=== PATIENT | female | born 1960 | race Caucasian/White ===

== ENCOUNTER 2018-08-27 11:46 | Inpatient (IN) | payer MEDICARE ==
[~2018-08-27] VITALS: Ht 170.2 cm; Wt 112.6 kg
[~2018-08-27 11:46] MED LIST: AMPICILLIN PO; ASPIRIN CHEW81 MG PO; ATROVENT HFA12.9 GM INH; BUDESONIDE0.5 MG/2 M NEB; CELEXA40 MG PO; CLINDAMYCIN HC150 MG PO; FENOFIBRATE PO; FUROSEMIDE40 MG PO; GABAPENTIN300 MG PO; HUMALOG100 UNIT/1 SC; LANTUS100 UNITS/ SC; LEVAQUIN500 MG PO; LEVOTHYROX200 MCG/VI PO; NAPROXEN500 MG PO; PANTOPRAZOLE SO40 MG PO; POTASSIUM CHLO20 ME1 PO; PRAVASTATIN SOD80 MG PO; PROAIR HFA INH8.5 GM IH; TOPIRAMATE25 MG PO
--- OUTSIDE RECORDS SUMMARY | 2018-08-27 11:49 | XMS REPORT | Clinical Summary ---
Author Author [facility] Organization [facility] Address Unknown Phone Unavailable Care Team Providers Care Care Worker Name Role Phone Ramon Koch MD PCP Allergies Comments Active Allergy Reactions Severity Noted Date Cefotaxime Anaphylaxis High 06/21/2018 "heart beat" Codeine Other (See 08/04/2016 Comments) "clarforin-antibiotic" Other Anaphylaxis High 06/20/2018 Sulfa (Sulfonamide Rash Low 08/04/2016 Antibiotics) Medications End Date Status Medication Sig Dispensed Refills Start Date Active LANTUS SOLOSTAR 100 40 Units 2 0 unit/mL injection (pen) (two) times a 6 day. Active HUMALOG KWIKPEN 100 20 Units 2 3 unit/mL insulin pen (two) times a 6 day. Active levothyroxine (SYNTHROID, Take 200 mcg 0 LEVOXYL) 200 mcg tablet by mouth every morning. Active pravastatin (PRAVACHOL) Take 80 mg by 0 80 MG tablet mouth nightly. Active fexofenadine (PERNELL) Take 180 mg 0 180 MG tablet by mouth daily. Active budesonide (PULMICORT) Take 0.25 mg 0 0.25 mg/2 mL nebulizer by solution nebulization Every 4 hours while awake as needed (RT). Active albuterol (PROVENTIL) 2.5 Take 2.5 mg 0 mg /3 mL (0.083 %) by nebulizer solution nebulization every 6 (six) hours as needed for wheezing. Active gabapentin (NEURONTIN) Take 2 360 capsule 3 300 mg capsule capsules (600 7 mg total) by mouth 2 (two) times a day. Active DULoxetine (CYMBALTA) 30 Take 1 pill 60 capsule 11 MG capsule Each day for 7 a month and then 2 pills Active pantoprazole (PROTONIX) Take 40 mg by 0 40 MG EC tablet mouth daily. Active fenofibrate micronized Take 200 mg 0 (LOFIBRA) 200 MG capsule by mouth daily before breakfast. Active citalopram (CeleXA) 40 MG Take 40 mg by 0 tablet mouth daily. 06/22/2018 Discontinued aspirin (ECOTRIN) 81 MG Take 81 mg by 0 enteric coated tablet mouth daily. 06/20/2018 Discontinued cyclobenzaprine Take 10 mg by 0 (FLEXERIL) 10 mg tablet mouth 3 (three) times a day as needed for muscle spasms. 06/20/2018 Discontinued furosemide (LASIX) 40 mg Take 40 mg by 0 tablet mouth 2 (two) times a day. 06/20/2018 Discontinued potassium chloride in Infuse into a 0 0.9%NaCl 20 mEq/250 mL venous (80 mEq/L) parenteral catheter. solution 06/20/2018 Discontinued etodolac (LODINE) 500 MG Take 500 mg 0 tablet by mouth 2 (two) times a day. 06/20/2018 Discontinued topiramate (TOPAMAX) 50 Take 2 pills 120 tablet 11 MG tablet Twice daily 7 06/20/2018 Discontinued levoFLOXacin (LEVAQUIN) TK 1 T PO QD 0 500 MG tablet 8 06/20/2018 Discontinued jdklcurg-qrvlmpsbv-OV INSTILL 4 0 (CORTISPORIN) DROPS IN BOTH 8 3.5-10,000-1 EARS TID FOR mg/mL-unit/mL-% otic 10 DAYS suspension 06/20/2018 Discontinued naproxen (NAPROSYN) 500 Take 500 mg 0 MG tablet by mouth 2 (two) times a day with meals. 07/05/2018 Discontinued clindamycin (CLEOCIN) 300 Take 1 60 capsule 0 MG capsule capsule (300 8 mg total) by mouth 3 (three) times a day for 20 days. 07/05/2018 Discontinued qpktgjsjgj-dgmggrf-jxfxiv Take 1 50 capsule 0 ne (FIORINAL) 50-325-40 capsule by 8 mg per capsule mouth every 4 (four) hours as needed for headaches for up to 15 days. 07/07/2018 traMADol (ULTRAM) 50 mg Take 1 tablet 60 tablet 0 tablet (50 mg total) 8 by mouth every 6 (six) hours as needed for severe pain for up to 15 days. 07/12/2018 clindamycin (CLEOCIN HCL) Take 1 21 capsule 0 300 MG capsule capsule (300 8 mg total) by mouth 3 (three) times a day for 7 days. 07/12/2018 acetaminophen-codeine Take 1-2 30 tablet 0 (TYLENOL WITH CODEINE #3) tablets by 8 300-30 mg per tablet mouth every 6 (six) hours as needed for moderate pain for up to 30 doses. Status Hospital, Clinic, or Ordered Dose Route Frequency Start End Date Other Facility Date Administered Medication Discontinued onabotulinumtoxinA 250 Units IM once 09/13/20 (BOTOX) injection 250 16 8 UnitsIndications: Spasmodic torticollis, Dystonia musculorum deformans type 1 Discontinued onabotulinumtoxinA 250 Units IM once 01/04/20 (BOTOX) injection 250 17 8 UnitsIndications: Spasmodic torticollis Discontinued onabotulinumtoxinA 320 Units IM once 04/25/20 (BOTOX) injection 320 17 8 UnitsIndications: Spasmodic torticollis Active Problems Problem Noted Date Essential tremor 06/21/2018 Persistent insomnia 08/04/2016 Insomnia disorder related to known organic factor 08/04/2016 Obstructive sleep apnea syndrome 08/04/2016 Spasmodic torticollis 08/04/2016 Neuropathy 08/04/2016 Tremor 08/04/2016 Encounters Care Team Description Date Type Specialty Jon Barron MD Essential tremor (Primary Dx); Spasmodic torticollis; Tremor 08/21/2018 Office Visit Neurology Jon Barron MD Neuropathy (Primary Dx); Tremor 07/23/2018 Office Visit Neurology Jon Barron MD 07/18/2018 Telephone Neurology Delia Abreu RN Essential tremor (Primary Dx) 07/16/2018 Clinical Neurosurgery Support Burak Calderon MD PLACEMENT DBS IPG'S AND EXTENSIONS, STAGE 2 07/05/2018 Surgery General Surgery Hannah Guthrie MD 07/05/2018 Anesthesia General Surgery Event Burak Calderon MD Essential tremor 07/05/2018 Hospital General Surgery Encounter Delia Abreu RN Essential tremor (Primary Dx) 07/04/2018 Prep for Neurosurgery Surgery EdmundoIrvin Moi, KINZA 06/21/2018 Anesthesia General Surgery Event Burak Calderon MD STEREOTACTIC PLACEMENT DEEP BRAIN STIMULATOR STAGE 1, W/O RECORDING UNILATERAL-LEFT 06/21/2018 Surgery General Surgery Burak Calderon MD Essential tremor 06/21/2018 Hospital Neurosurgery - Encounter 06/22/2018 Delia Abreu RN Essential tremor (Primary Dx) 06/20/2018 Prep for Neurosurgery Surgery Burak Calderon MD Essential tremor 06/18/2018 Hospital Radiology Encounter Burak Calderon MD Essential tremor 06/18/2018 Hospital Radiology Encounter Jon Barron MD 06/08/2018 Telephone Neurology Burak Calderon MD Essential tremor (Primary Dx) 06/06/2018 Transcribe Neurosurgery Orders Burak Calderon MD Benign essential tremor (Primary Dx); Tremor 06/04/2018 Office Visit Neurosurgery Burak Calderon MD 05/24/2018 Abstract Neurosurgery Jon Barron MD Neuropathy (Primary Dx); Spasmodic torticollis; Tremor; Insomnia disorder related to known organic factor 04/17/2018 Clinical Neurology Support Ramon Koch MD Obstructive chronic bronchitis without exacerbation 03/21/2018 Hospital Radiology Encounter Ramon Koch MD Screening breast examination 03/21/2018 Hospital Radiology Encounter Ramon Koch MD Obstructive chronic bronchitis without exacerbation (Primary Dx) 03/21/2018 Transcribe Radiology Orders Ramon Koch MD Screening breast examination (Primary Dx) 03/20/2018 Transcribe Access Orders Jon Barron MD Spasmodic torticollis 12/12/2017 Clinical Neurology Support Jon Barron MD 12/08/2017 Telephone Neurology after 08/26/2017 Immunizations Name Dates Previously Given Next Due FLUCELVAX QUAD PF (0.5mL 06/22/2018 syringe) Family History Medical History Relation Name Comments Emphysema Father Brain cancer Mother Malignant neoplasm of brain Other Other No family history of tremors Other Sister of AIDS Relation Name Status Comments Father old age (Age 75) Mother (Age 40) Other Sister Social History Date Tobacco Use Types Packs/Day Years Used Quit: 2014 Former Smoker Cigarettes 0.5 40 Smokeless Tobacco: Never Used Alcohol Use Drinks/Week oz/Week Comments No rarely- beer Sex Assigned at Date Recorded Not on file Industry Job Start Date Occupation Not on file Not on file Not on file Travel End Travel History Travel Start No recent travel history available. Last Filed Vital Signs Time Taken Vital Sign Reading 08/21/2018 10:13 AM DELIVERY AIDE Blood Pressure 113/72 08/21/2018 10:13 AM DELIVERY AIDE Pulse 103 07/05/2018 10:45 AM CDT Temperature 36.7 C (98 F) 07/05/2018 10:45 AM CDT Respiratory Rate 18 07/05/2018 10:45 AM CDT Oxygen Saturation 98% - Inhaled Oxygen - Concentration 08/21/2018 10:10 AM DELIVERY AIDE Weight 104 kg (229 lb) 08/21/2018 10:10 AM DELIVERY AIDE Height 170.2 cm (5' 7") 08/21/2018 10:10 AM DELIVERY AIDE Body Mass Index 35.87 Plan of Treatment Health Maintenance Due Date Last Done Comments MMR VACCINES (1 of 1 - 1962 Standard series) VARICELLA VACCINES (1 of 1974 2 - 2-dose adolescent series) CERVICAL CANCER SCREENING 1982 COLON CANCER SCREENING 2011 SHINGRIX VACCINE (1 of 2) 2011 BREAST CANCER SCREENING 03/21/2020 03/21/2018, 08/22/2016, 11/27/2014, Additional history exists INFLUENZA VACCINE Completed 06/22/2018 HEPATITIS B VACCINES Aged Out No longer eligible based on patient's age to complete this topic IPV VACCINES Aged Out No longer eligible based on patient's age to complete this topic MENINGOCOCCAL VACCINE Aged Out No longer eligible based on patient's age to complete this topic Implants Device Identifier Shelf Expiration Date Model / Serial / Lot Implanted Type Area Manufactur er 11/14/2020 [id number] / / [id number] Kit Lead Dbs Elctrd 1.5mm 40cm - Neurosurgi Left: Brain [employer] [id number] [facility] - Implanted: Qty: 1 on 06/21/2018 by Implants NEUROLOGIC Burak Calderon MD AL 01/20/2019 [id number] / [id number] / [id number] Neurostimulator Imp Activa Neurosurgi N/A: N/A [employer] [id number] Rechrgbl For Dbs 1.6oz - allie NEUROMODUL [id number] - [id number] Implants ATION Implanted: Qty: 1 on 07/05/2018 by Burak Calderon MD 03/13/2022 [id number] / [id number] / [id number] Extension Dbs Nurostmltr Torque Neurosurgi N/A: N/A [employer] Wrench 38cm Stretch-Coil - allie NEUROMODUL [id number] - [id number] Implants ATION Implanted: Qty: 1 on 07/05/2018 [place] [id number] / / Neurostimulator Imp Activa Neurosurgi N/A: N/A [employer] 9.4x5.6x2.8cm Nrechrgbl For Dbs - allie NEUROMODUL [id number] Implants ATION Implanted: Qty: 1 on 07/05/2018 by Burak Calderon MD Procedures Comments Procedure Name Priority Date/Time Associated Diagnosis WI COMPLEX CRANIAL Routine 08/21/2018 Essential tremor NEUROSTIM,1ST HOUR 10:00 AM DELIVERY AIDE WI COMPLEX CRANIAL Routine 07/23/2018 Tremor NEUROSTIM,1ST HOUR 8:20 AM CDT POC GLUCOSE Routine 07/05/2018 9:09 AM CDT WI AN ELECTIVE Routine 07/05/2018 ENDOTRACHEAL AIRWAY 8:02 AM CDT Procedure Note - Bre Guillen CRNA - 07/05/2018 8:02 AM CDT Airway Date/Time: 07/05/2018 7:43 AM Performed by: BRE GUILLEN Authorized by: HANNAH GUTHRIE Location: OR Urgency: Elective Difficult Airway: No Preoxygena johnnie with 100% O2: Yes C-spine Precaution s Maintained Throughout : Yes Mask Ventilatio n: Easy mask Final Airway Type: Endotrache al airway Final Endotrache al Airway: ETT Cuffed: Yes Technique Used: Direct laryngosco py Devices/Me thods Used in Placement: Intubatin g stylet Insertion Site: Oral Blade Type: Elizondo Laryngosco pe Blade/Vide olaryngosc ope Blade Size: 2 ETT Size (mm): 7.0 Cuff at minimum occlusion pressure: Yes Measured from: Lips ETT to Lips (cm): 22 Placement Verified by: CO2 detection and direct visualizat ion Laryngosco pic view: Grade IIa - partial view of glottis Rapid Sequence Induction (RSI): No Modified RSI: No Number of Attempts at Approach: 1 INSERTION, INTERNAL PULSE 07/05/2018 Benign essential tremor GENERATOR, FOR DEEP BRAIN 7:30 AM CDT STIMULATION Case Notes MEDTRONIC DEVICE, Special Needs MEDTRONIC DEVICE, POC GLUCOSE Routine 07/05/2018 7:11 AM CDT POC GLUCOSE Routine 06/22/2018 3:05 PM CDT POC GLUCOSE Routine 06/22/2018 1:58 PM CDT POC GLUCOSE Routine 06/22/2018 12:04 PM CDT POC GLUCOSE Routine 06/22/2018 10:06 AM CDT POC GLUCOSE Routine 06/22/2018 7:[address] HEAD WO CONTRAST Routine 06/22/2018 2:47 AM CDT POC GLUCOSE Routine 06/21/2018 11:07 PM CDT POC GLUCOSE Routine 06/21/2018 7:11 PM CDT POC GLUCOSE Routine 06/21/2018 10:48 AM CDT OR [place] > 1 HOUR Routine 06/21/2018 10:15 AM CDT IMPLANTATION, DEEP BRAIN 06/21/2018 Benign essential tremor STIMULATOR ELECTRODE 7:30 AM CDT LEADS, BILATERAL, STAGE 1 Case Notes MEDTRONIC DEVICE, STEALTH S8, O-ARM #2 Special Needs MEDTRONIC DEVICE, STEALTH S8, O-ARM #2 POC GLUCOSE Routine 06/21/2018 6:[address] HEAD WO CONTRAST Routine 06/18/2018 Essential tremor 4:34 PM CDT MRI BRAIN W WO CONTRAST Routine 06/18/2018 Essential tremor 3:03 PM CDT XR CHEST 2 VW Routine 03/21/2018 Obstructive chronic 12:18 PM CDT bronchitis without exacerbation MAMMO BREAST SCREEN Routine 03/21/2018 Screening breast TOMOSYNTHESIS BILATERAL 11:50 AM CDT examination after 08/26/2017 Results * DBS Adjustment (08/21/2018 10:00 AM DELIVERY AIDE) Narrative Performed At Jon Barron MD 08/21/20185:55 PM DBS Adjustment Date/Time: 08/21/2018 11:03 AM Performed by: Jon Barron MD Authorized by: Jon Barron MD Procedure details: The left brain is implanted in the VIM. The battery type is Medtronic Activa RC. Procedure Complexity:Complex We discussed DBS adjustment options including potential side effects and anticipated benefits. Battery, impedance and other parameters were checked. Checked multiple configurations and made complex adjustment settings, requiring more than 45 minutes Post-procedure details: Patient tolerance of procedure:Tolerated well, no immediate complications. Please see attachment for final settings. * Deep Brain Stimulator Adjustment (07/23/2018 8:20 AM CDT) Narrative Performed At Jon Barron MD 07/23/20186:13 PM DBS Adjustment Date/Time: 07/23/2018 6:05 PM Performed by: JON BARRON Authorized by: JON BARRON Procedure details: The left brain is implanted in the VIM. The battery type is Medtronic Activa RC. Procedure Complexity:Complex We discussed DBS adjustment options including potential side effects and anticipated benefits. Battery, impedance and other parameters were checked. Checked multiple configurations and made complex adjustment settings, requiring more than 45 minutes Comments: This was the initial activation and adjustment for her DBS.Required more than 90 minutes including education about the access review and recharging. * POC glucose (07/05/2018 9:09 AM CDT) Only the most recent of 11 results within the time period is included. POC glucose 164 (H) 65 - 99 mg/dL [facility] DEPARTMENT OF Comment: PATHOLOGY AND Meter ID: [id number] GENOMIC MEDICINE Mining Manager: Candy Wilhelm Performing Organization Address City/State/Zipcode Phone Number [facility] DEPARTMENT OF [address] [place] [address] PATHOLOGY AND GENOMIC MEDICINE * CT Head Wo Contrast (06/22/2018 2:47 AM CDT) Only the most recent of 2 results within the time period is included. Narrative Performed At EXAMINATION: CT HEAD WO CONTRAST [facility] CLINICAL HISTORY: postop COMPARISON:06/18/[address] TECHNIQUE: Noncontrast enhanced images of the brain were obtained from the skull base to the vertex. Both soft tissue and bone reconstruction algorithms were performed. CT scans are performed using radiation dose reduction techniques (iterative reconstruction and/or automated exposure control). Technical factors are evaluated and adjusted to ensure appropriate moderation of exposure. Automated dose management technology is applied to adjust radiation exposure while achieving a diagnostic quality image. FINDINGS: New operative changes related to placement of a left deep brain stimulator. The tip of the stimulator terminates in the thalamus or subthalamic nucleus. There is no acute ischemia, intracranial hemorrhage, or mass effect. IMPRESSION: New left deep brain stimulator. No acute abnormality. [facility]-[id number] Procedure Note Interface, Radiology Results Incoming - 06/22/2018 2:58 AM CDT EXAMINATION: CT HEAD WO CONTRAST CLINICAL HISTORY: postop COMPARISON: 06/18/[address] TECHNIQUE: Noncontrast enhanced images of the brain were obtained from the skull base to the vertex. Both soft tissue and bone reconstruction algorithms were performed. CT scans are performed using radiation dose reduction techniques (iterative reconstruction and/or automated exposure control). Technical factors are evaluated and adjusted to ensure appropriate moderation of exposure. Automated dose management technology is applied to adjust radiation exposure while achieving a diagnostic quality image. FINDINGS: New operative changes related to placement of a left deep brain stimulator. The tip of the stimulator terminates in the thalamus or subthalamic nucleus. There is no acute ischemia, intracranial hemorrhage, or mass effect. IMPRESSION: New left deep brain stimulator. No acute abnormality. [facility]-[id number] Performing Organization Address City/State/Zipcode Phone Number [facility] [address] [place] [address] * OR [place] > I Hour (06/21/2018 10:15 AM CDT) Narrative Performed At EXAMINATION:OR [place] 1 HOUR [facility] C-arm fluoroscopy was requested in OR. Location: [place] 3 OR 10 Procedure: DEEP BRAIN STIMULATOR INS Start: 829 End: 1014 Fluoro Time: 4SEC mGy: 45.7 Tech: JV SCANS:3 IMPRESSION: Separate operative report will be issued by the physician performing the procedure. [id number] Procedure Note Interface, Radiology Results Incoming - 06/21/2018 2:24 PM CDT EXAMINATION: OR [place] 1 HOUR C-arm fluoroscopy was requested in OR. Location: [place] 3 OR 10 Procedure: DEEP BRAIN STIMULATOR INS Start: 0830 End: 1015 Fluoro Time: 4SEC mGy: 45.7 Tech: JV SCANS:3 IMPRESSION: Separate operative report will be issued by the physician performing the procedure. [id number] Performing Organization Address [facility] Phone Number [facility] [address] [place] [address] * MRI Brain W Wo Contrast (06/18/2018 3:03 PM CDT) Narrative Performed At [facility] EXAMINATION: MRI BRAIN W WO CONTRAST COMPARISON: None CLINICAL HISTORY G25.0 Essential tremor, Essential tremor. TECHNIQUE: Multiplanar multisequence examination was performed with and without contrast FINDINGS: There is no definite diffusion restriction. The ventricles and subarachnoid spaces are mildly dilated. There is no focal signal abnormality within the hankins or white matter. There is no extra-axial mass or fluid collection. There are no abnormal enhancing lesions within the parenchyma or the leptomeninges. There is no gross pituitary enlargement. IMPRESSION: Mild age-appropriate volume loss. No focal abnormalities or abnormal enhancing lesions [id number] Procedure Note Interface, Radiology Results Incoming - 06/18/2018 4:14 PM CDT EXAMINATION: MRI BRAIN W WO CONTRAST COMPARISON: None CLINICAL HISTORY G25.0 Essential tremor, Essential tremor. TECHNIQUE: Multiplanar multisequence examination was performed with and without contrast FINDINGS: There is no definite diffusion restriction. The ventricles and subarachnoid spaces are mildly dilated. There is no focal signal abnormality within the hankins or white matter. There is no extra-axial mass or fluid collection. There are no abnormal enhancing lesions within the parenchyma or the leptomeninges. There is no gross pituitary enlargement. IMPRESSION: Mild age-appropriate volume loss. No focal abnormalities or abnormal enhancing lesions [id number] Performing Organization Address [facility] Cent[facility]ode Phone Number [facility] [address] [place] [address] * XR Chest 2 Vw (03/21/2018 12:18 PM CDT) Narrative Performed At EXAMINATION:XR CHEST 2 VW [facility] CLINICAL HISTORY:J44.9 Chronic obstructive pulmonary diseaseunspecified, J44.9 COMPARISON:To a previous examination from 08/22/2016 IMPRESSION: The cardiomediastinal silhouette is normal in appearance. The lungs are clear. There is no evidence of consolidation, congestion, or pneumothorax. A pleural effusion is not present. Old healed left-sided rib fractures noted. [id number] Procedure Note Hm Interface, Radiology Results Incoming - 03/21/2018 12:39 PM CDT EXAMINATION: XR CHEST 2 VW CLINICAL HISTORY: J44.9 Chronic obstructive pulmonary disease unspecified, J44.9 COMPARISON: To a previous examination from 08/22/2016 IMPRESSION: The cardiomediastinal silhouette is normal in appearance. The lungs are clear. There is no evidence of consolidation, congestion, or pneumothorax. A pleural effusion is not present. Old healed left-sided rib fractures noted. [id number] Performing Organization Address City/[facility] Cent[facility]out Phone Number [facility] [address] [place] [address] * Mammo Breast Screen Tomosynthesis Bilateral (03/21/2018 11:50 AM CDT) Narrative Performed At EXAMINATION:MAMMO BREAST SCREEN TOMOSYNTHESIS BILATERAL03/21/2018 [facility] Computer-assisted detection was utilized in the interpretation of this exam. COMPARISONS:08/22/2016 and 11/27/2014 INDICATION:57 year-old female who presents for annual evaluation. FINDINGS: There is scattered fatty and fibroglandular tissue. There are no suspicious mammographic findings. IMPRESSION: No mammographic evidence of malignancy. In the absence of any clinical change, continued routine annual mammographic surveillance per ACS guidelines is recommended. BI-RADS 2: BENIGN. [id number] Performing Organization Address City/[facility]out Phone Number [facility] [address] [place] [address] after 08/26/2017 Insurance Payer Benefit Subscriber ID Type Phone Address Plan / Group [facility] MEDICARE AARP xxxxxxxxx O MEDICARE COMPLETE MCR Advance Directives Patient has advance care planning documents on file. For more information, acacia huber contact: Hernandez Gonzales [address] [place] [address]
--- OUTSIDE RECORDS SUMMARY | 2018-08-27 11:56 | XMS REPORT | Clinical Summary ---
Author Author Ng [facility] Organization [facility] Address Unknown Phone Unavailable Care Team Providers Care Waterworks Employee Name Role Phone Ramon Koch MD PCP [...] 0 500 MG tablet 8 06/20/2018 Discontinued pwjpshvn-dukfimzwq-BL INSTILL 4 0 (CORTISPORIN) DROPS IN BOTH [...] a day for 20 days. 07/05/2018 Discontinued jeyxgkkbon-nzracvt-okwifa Take 1 50 capsule 0 ne (FIORINAL) [...] Taken Vital Sign Reading 08/21/2018 10:13 AM WIRE SPRING RELAY ADJUSTER Blood Pressure 113/72 08/21/2018 10:13 AM WIRE SPRING RELAY ADJUSTER Pulse 103 07/05/2018 10:45 AM CDT Temperature 36.7 C (98 F) 07/05/2018 10:45 AM CDT Respiratory Rate 18 07/05/2018 10:45 AM CDT Oxygen Saturation 98% - Inhaled Oxygen - Concentration 08/21/2018 10:10 AM WIRE SPRING RELAY ADJUSTER Weight 104 kg (229 lb) 08/21/2018 10:10 AM WIRE SPRING RELAY ADJUSTER Height 170.2 cm (5' 7") 08/21/2018 10:10 AM WIRE SPRING RELAY ADJUSTER Body Mass Index 35.87 Plan of Treatment [...] Manufactur er 11/14/2020 [id number] / / [id number] Kit Lead Dbs Elctrd 1.5mm 40cm - Neurosurgi Left: Brain [employer] [id number] [facility] - Implanted: Qty: 1 on 06/21/2018 by Implants NEUROLOGIC Burak Calderon MD AL 01/20/2019 [id number] / [id number] / [id number] Neurostimulator Imp Activa Neurosurgi N/A: N/A [employer] [id number] Rechrgbl For Dbs 1.6oz - allie NEUROMODUL [id number] - [id number] Implants ATION Implanted: Qty: 1 on 07/05/2018 by Burak Calderon MD 03/13/2022 [id number] / [id number] / [id number] Extension Dbs Nurostmltr Torque Neurosurgi N/A: N/A [employer] Wrench 38cm Stretch-Coil - allie NEUROMODUL [id number] - [id number] Implants ATION Implanted: Qty: 1 on 07/05/2018 [place] [id number] / / Neurostimulator Imp Activa Neurosurgi N/A: N/A [employer] 9.4x5.6x2.8cm Nrechrgbl For Dbs - allie NEUROMODUL [id number] Implants ATION Implanted: Qty: 1 on 07/05/2018 by Burak Calderon MD Procedures Comments Procedure Name Priority Date/Time Associated Diagnosis [place] COMPLEX CRANIAL Routine 08/21/2018 Essential tremor NEUROSTIM,1ST HOUR 10:00 AM WIRE SPRING RELAY ADJUSTER [place] COMPLEX CRANIAL Routine 07/23/2018 Tremor NEUROSTIM,1ST HOUR 8:20 AM CDT POC GLUCOSE Routine 07/05/2018 9:09 AM CDT MN AN ELECTIVE Routine 07/05/2018 ENDOTRACHEAL AIRWAY 8:02 [...] Results * DBS Adjustment (08/21/2018 10:00 AM WIRE SPRING RELAY ADJUSTER) Narrative Performed At Jon Barron MD 08/21/20185:55 [...] glucose 164 (H) 65 - 99 mg/dL [facility] DEPARTMENT OF Comment: PATHOLOGY AND Meter ID: [id number] GENOMIC MEDICINE Chute Puller: Candy Wilhelm Performing Organization Address City/State/Zipcode Phone Number [facility] DEPARTMENT OF [address] [place] [address] PATHOLOGY AND GENOMIC MEDICINE * CT Head [...] left deep brain stimulator. No acute abnormality. [facility]-[id number] Procedure Note Interface, Radiology Results Incoming - [...] left deep brain stimulator. No acute abnormality. [facility]-[id number] Performing Organization Address City/State/Zipcode Phone Number [facility] [address] [place] [address] * OR [place] > I Hour (06/21/2018 10:15 AM CDT) Narrative Performed At EXAMINATION:OR [place] 1 HOUR [facility] C-arm fluoroscopy was requested in OR. Location: [facility] 3 OR 10 Procedure: DEEP BRAIN STIMULATOR INS Start: 829 End: 1014 Fluoro Time: 4SEC mGy: 45.7 Tech: JV SCANS:3 IMPRESSION: Separate operative report will be issued by the physician performing the procedure. [id number] Procedure Note Interface, Radiology Results Incoming - 06/21/2018 2:24 PM CDT EXAMINATION: [place] 1 HOUR C-arm fluoroscopy was requested in OR. Location: [facility] 3 OR 10 Procedure: DEEP BRAIN STIMULATOR INS Start: 0830 End: 1015 Fluoro Time: 4SEC mGy: 45.7 Tech: JV SCANS:3 IMPRESSION: Separate operative report will be issued by the physician performing the procedure. [id number] Performing Organization Address [facility] Phone Number [facility] [address] [place] [address] * MRI Brain W Wo Contrast (06/18/2018 [...] No focal abnormalities or abnormal enhancing lesions [id number] Procedure Note Interface, Radiology Results Incoming - [...] No focal abnormalities or abnormal enhancing lesions [id number] Performing Organization Address [facility] Phone Number [facility] [address] [place] [address] * XR Chest 2 Vw (03/21/2018 12:18 PM CDT) Narrative Performed At EXAMINATION:XR CHEST 2 VW [facility] CLINICAL HISTORY:J44.9 Chronic obstructive pulmonary diseaseunspecified, J44.9 COMPARISON:To a previous examination from 08/22/2016 IMPRESSION: The cardiomediastinal silhouette is normal in appearance. The lungs are clear. There is no evidence of consolidation, congestion, or pneumothorax. A pleural effusion is not present. Old healed left-sided rib fractures noted. [id number] Procedure Note Hm Interface, Radiology Results Incoming [...] present. Old healed left-sided rib fractures noted. [id number] Performing Organization Address City/[facility] Phone Number [facility] [address] [place] [address] * Mammo Breast Screen Tomosynthesis Bilateral (03/21/2018 11:50 AM CDT) Narrative Performed At EXAMINATION:MAMMO BREAST SCREEN TOMOSYNTHESIS BILATERAL03/21/2018 [facility] Computer-assisted detection was utilized in the interpretation [...] BI-RADS 2: BENIGN. [id number] Performing Organization Address City/[facility] Phone Number [facility] [address] [place] [address] after 08/26/2017 Insurance Payer Benefit Subscriber ID Type Phone Address Plan / Group [facility] MEDICARE AARP xxxxxxxxx O MEDICARE COMPLETE MCR Advance Directives Patient has advance care planning documents on file. For more information, acacia huber contact: Hernandez Gonzales [address] [place] [address]
[2018-08-27] MEDS ORDERED: SODIUM CHLORIDE 0.9% 1000ML 1,000 ML IV STA ×2 (12:19→13:01)
[2018-08-27] MEDS ORDERED: VANCOMYCIN 1GM/NS 250 ML 250 ML IV STA ×2 (12:19→12:28)
[2018-08-27] MEDS ORDERED: PIPER-TAZ 3.375 GM 50 ML IV STA ×2 (12:19→12:28)
[2018-08-27] MEDS ORDERED: MORPHINE SULFATE 2 MG/ML SYR IV STA (12:19)
[2018-08-27 12:29] LABS: BASOPHILS # (AUTO) 0.1 (0.0-0.1); BASOPHILS % 0.6 % (0.0-1.0); EOSINOPHILS # (AUTO) 0.1 (0.0-0.4); EOSINOPHILS % 1.5 % (0.0-6.0); HEMATOCRIT 35.7 % (34.2-44.1); HEMOGLOBIN 11.7 g/dL (12.0-16.0); LYMPHOCYTES # (AUTO) 1.6 (1.0-3.2); LYMPHOCYTES % 18.1 % (18.0-39.1); MEAN CORPUSCULAR HEMOGLOBIN 29.8 pg (28-32); MEAN CORPUSCULAR HGB CONC 32.8 g/dL (31-35); MEAN CORPUSCULAR VOLUME 91.1 fL (81-99); MONOCYTES # (AUTO) 0.5 (0.2-0.8); NEUTROPHILS # (AUTO) 6.6 (2.1-6.9); NEUTROPHILS % 72.8 % (38.7-80.0); PLATELET COUNT 355 x10e3/uL (140-360); RED BLOOD COUNT 3.92 x10e6/uL (3.6-5.1); RED CELL DISTRIBUTION WIDTH 13.2 % (11.7-14.4)
[2018-08-27 12:53] LABS: ALBUMIN 3.2 g/dL (3.5-5.0); ALBUMIN/GLOBULIN RATIO 0.9 (0.8-2.0); ANION GAP 17.3 mmol/L (8-16); CREATININE, SERUM 1.52 mg/dL (0.57-1.11); MAGNESIUM 1.8 MG/DL (1.3-2.1); POTASSIUM 4.3 mmol/L (3.5-5.1)
[2018-08-27] MEDS ORDERED: LEVOTHYROXINE200 MCG PO (13:02)
[2018-08-27] MEDS ORDERED: CYMBALTA20 MG PO (13:03)
[2018-08-27] MEDS ORDERED: INSULIN LISPRO 100 UNIT/1 ML 3ML VIAL SQ SCH (13:15)
[2018-08-27] MEDS ORDERED: DEXTROSE 50% SYRINGE 50 ML IV PRN (14:15)
[2018-08-27] MEDS ORDERED: MORPHINE SULFATE 2 MG/ML SYR IV PRN (14:15)
[2018-08-27] MEDS ORDERED: ONDANSETRON HCL INJ 2 MG/ML VIAL IV PRN (14:15)
[2018-08-27 14:28] LABS: BILIRUBIN,URINE NEGATIVE (NEGATIVE); CLARITY,URINE CLEAR (CLEAR); COLOR,URINE YELLOW (YELLOW); KETONES,URINE NEGATIVE (NEGATIVE); LEUKOCYTE ESTERASE ,URINE 1+ (NEGATIVE); NITRITE,URINE NEGATIVE (NEGATIVE); PROTEIN,URINE DIPSTICK NEGATIVE (NEGATIVE); URINE UROBILINOGEN 0.2 mg/dL (0.2 - 1)
[2018-08-27 14:36] LABS: BACTERIA,URINE FEW /HPF; EPITHELIAL CELLS,URINE MODERATE /LPF; MUCUS,URINE FEW (RARE); RBC,URINE 0-5 /HPF (0-5); RENAL EPITHELIAL CELLS,URINE FEW
[2018-08-27] MEDS: PIPERACILLIN/TAZO 2.25 GM 50 ML IV SCH ×2 (14:56→17:10)
--- OUTSIDE RECORDS SUMMARY | 2018-08-27 15:09 | XMS REPORT | Clinical Summary ---
Author Author Ng [facility] Organization [facility] Address Unknown Phone Unavailable Care Team Providers Care Cookie Breaker Name Role Phone Ramon Koch MD PCP [...] 0 500 MG tablet 8 06/20/2018 Discontinued tlreqily-smpoertrw-UL INSTILL 4 0 (CORTISPORIN) DROPS IN BOTH [...] a day for 20 days. 07/05/2018 Discontinued nhngqjyjfj-kbengim-giyasx Take 1 50 capsule 0 ne (FIORINAL) [...] Taken Vital Sign Reading 08/21/2018 10:13 AM M1 ARMOR CREWMAN Blood Pressure 113/72 08/21/2018 10:13 AM M1 ARMOR CREWMAN Pulse 103 07/05/2018 10:45 AM CDT Temperature 36.7 C (98 F) 07/05/2018 10:45 AM CDT Respiratory Rate 18 07/05/2018 10:45 AM CDT Oxygen Saturation 98% - Inhaled Oxygen - Concentration 08/21/2018 10:10 AM M1 ARMOR CREWMAN Weight 104 kg (229 lb) 08/21/2018 10:10 AM M1 ARMOR CREWMAN Height 170.2 cm (5' 7") 08/21/2018 10:10 AM M1 ARMOR CREWMAN Body Mass Index 35.87 Plan of Treatment [...] Manufactur er 11/14/2020 [id number] 40 / / [id number] Kit Lead Dbs Elctrd 1.5mm 40cm - Neurosurgi Left: Brain [employer] [id number] [facility] - Implanted: Qty: 1 on 06/21/2018 by Implants NEUROLOGIC Burak Calderon MD AL 01/20/2019 [id number] / [id number] / [id number] Neurostimulator Imp Activa Neurosurgi N/A: N/A [employer] [id number] Rechrgbl For Dbs 1.6oz - allie NEUROMODUL [id number] - [id number] Implants ATION Implanted: Qty: 1 on 07/05/2018 by Burak Calderon MD 03/13/2022 [id number] / [id number] / [id number] Extension Dbs Nurostmltr Torque Neurosurgi N/A: N/A [employer] Wrench 38cm Stretch-Coil - allie NEUROMODUL [id number] - [id number] Implants ATION Implanted: Qty: 1 on 07/05/2018 [place] [id number] / / Neurostimulator Imp Activa Neurosurgi N/A: N/A [employer] 9.4x5.6x2.8cm Nrechrgbl For Dbs - allie NEUROMODUL [id number] Implants ATION Implanted: Qty: 1 on 07/05/2018 by Burak Calderon MD Procedures Comments Procedure Name Priority Date/Time Associated Diagnosis [place] COMPLEX CRANIAL Routine 08/21/2018 Essential tremor NEUROSTIM,1ST HOUR 10:00 AM M1 ARMOR CREWMAN [place] COMPLEX CRANIAL Routine 07/23/2018 Tremor NEUROSTIM,1ST HOUR 8:20 AM CDT POC GLUCOSE Routine 07/05/2018 9:09 AM CDT [place] AN ELECTIVE Routine 07/05/2018 ENDOTRACHEAL AIRWAY 8:02 [...] Results * DBS Adjustment (08/21/2018 10:00 AM M1 ARMOR CREWMAN) Narrative Performed At Jon Barron MD 08/21/20185:55 [...] glucose 164 (H) 65 - 99 mg/dL [facility] DEPARTMENT OF Comment: PATHOLOGY AND Meter ID: [id number] GENOMIC MEDICINE Shop Firer/Fireman: Candy Wilhelm Performing Organization Address City/State/Zipcode Phone Number [facility] DEPARTMENT OF [address] [place] [address] PATHOLOGY AND GENOMIC MEDICINE * CT Head [...] left deep brain stimulator. No acute abnormality. [facility]-[id number] Procedure Note Interface, Radiology Results Incoming - [...] left deep brain stimulator. No acute abnormality. [facility]-[id number] Performing Organization Address City/State/Zipcode Phone Number [facility] [address] [place] [address] * [place] > I Hour (06/21/2018 10:15 AM CDT) Narrative Performed At EXAMINATION:OR [place] 1 HOUR [facility] C-arm fluoroscopy was requested in OR. Location: [facility] 3 OR 10 Procedure: DEEP BRAIN STIMULATOR INS Start: 829 End: 1014 Fluoro Time: 4SEC mGy: 45.7 Tech: JV SCANS:3 IMPRESSION: Separate operative report will be issued by the physician performing the procedure. [id number] Procedure Note Interface, Radiology Results Incoming - 06/21/2018 2:24 PM CDT EXAMINATION: [place] 1 HOUR C-arm fluoroscopy was requested in OR. Location: [facility] 3 OR 10 Procedure: DEEP BRAIN STIMULATOR INS Start: 0830 End: 1015 Fluoro Time: 4SEC mGy: 45.7 Tech: JV SCANS:3 IMPRESSION: Separate operative report will be issued by the physician performing the procedure. [id number] Performing Organization Address [facility] Phone Number [facility] [address] [place] [address] * MRI Brain W Wo Contrast (06/18/2018 [...] No focal abnormalities or abnormal enhancing lesions [id number] Procedure Note Interface, Radiology Results Incoming - [...] No focal abnormalities or abnormal enhancing lesions [id number] Performing Organization Address [facility] Phone Number [facility] [address] [place] [address] * XR Chest 2 Vw (03/21/2018 12:18 PM CDT) Narrative Performed At EXAMINATION:XR CHEST 2 VW [facility] CLINICAL HISTORY:J44.9 Chronic obstructive pulmonary diseaseunspecified, J44.9 COMPARISON:To a previous examination from 08/22/2016 IMPRESSION: The cardiomediastinal silhouette is normal in appearance. The lungs are clear. There is no evidence of consolidation, congestion, or pneumothorax. A pleural effusion is not present. Old healed left-sided rib fractures noted. [id number] Procedure Note Hm Interface, Radiology Results Incoming [...] present. Old healed left-sided rib fractures noted. [id number] Performing Organization Address City/[facility] Phone Number [facility] [address] [place] [address] * Mammo Breast Screen Tomosynthesis Bilateral (03/21/2018 11:50 AM CDT) Narrative Performed At EXAMINATION:MAMMO BREAST SCREEN TOMOSYNTHESIS BILATERAL03/21/2018 [facility] Computer-assisted detection was utilized in the interpretation [...] BI-RADS 2: BENIGN. DWS01 Performing Organization Address City/[facility] Phone Number [employer] [address] [place] [address] after 08/26/2017 Insurance Payer Benefit Subscriber ID Type Phone Address Plan / Group [facility] MEDICARE AARP xxxxxxxxx O MEDICARE COMPLETE MCR Advance Directives Patient has advance care planning documents on file. For more information, acacia huber contact: Hernandez Gonzales [address] [place] [address]
[2018-08-27] MEDS: SODIUM CHLORIDE 0.9% 1000ML 1,000 ML IV SCH (15:34)
[2018-08-27 16:00] VITALS: BP 138/65
[2018-08-27 16:15] VITALS: BP 138/65
[2018-08-27] MEDS: INSULIN LISPRO 100 UNIT/1 ML 3ML VIAL SQ SCH ×2 (17:00→21:36)
[2018-08-27] MEDS ORDERED: BUDESONIDE 0.5MG/2 ML NEB NEB PRN (17:45)
--- NOTE | 2018-08-27 18:51 | Consultation ---
DATE OF CONSULTATION: August 27, 2018 REASON FOR CONSULTATION: Abdominal wall infection. HISTORY OF PRESENT ILLNESS: This patient is a 57-year-old female with history of obesity, history of diabetes mellitus. She comes in with redness and swelling of her abdominal wall where she had a small lesion becoming progressively worse. It started to drain and the patient came to emergency room where she is being admitted. She is currently laying in bed, comfortable. MEDICATIONS: She is on Zosyn, vancomycin. ALLERGIES: SULFA. LABORATORY DATA: White count 9.06, hemoglobin 11, sodium 137, potassium 4.3, glucose 169, creatinine 1.52. PAST MEDICAL HISTORY: Diabetes mellitus, obesity. PAST SURGICAL HISTORY: Denied. SOCIAL HISTORY: Does not smoke, no drug abuse, no alcohol abuse. PHYSICAL EXAMINATION: GENERAL: Alert, oriented, obese, does not seem to be in any acute distress. VITAL SIGNS: Stable, currently afebrile. HEENT: Not icteric. NECK: Supple. CHEST: Clear bilaterally. ABDOMEN: Soft. There is redness and swelling and induration. There is drainage noted from the lower part of the abdomen. IMPRESSION: 1. Abscess in a patient with obesity and diabetes. 2. Chronic kidney disease. RECOMMENDATIONS: I agree with vancomycin and agree with Zosyn. Incision and drainage to be done by surgery. Follow weekly CBC. Will get chem panel. Await wound cultures. Await blood culture. will follow. Job#: [id number]
--- NOTE | 2018-08-27 19:07 | History and Physical ---
CHIEF COMPLAINT: Lower abdominal abscess. HISTORY OF PRESENT ILLNESS: Ms. Sharif is a 57-year-old female diabetic. She has diabetes and hyperlipidemia. She has essential tremors. She was in his usual state of health a week ago. She started having abdominal discomfort and pain. She had a small abscess for which clindamycin and Levaquin were prescribed by her primary care physician and she took the medications; however, the pain, redness and drainage started getting worse, so she came to the emergency room. She reports that she denies any complaints of chest pain, nausea, vomiting and diarrhea. She has abdominal pain because of the abscess. She recently had a brain surgery for essential tremors. She had deep brain stimulation surgery. REVIEW OF SYSTEMS: GENERAL: Denies any fever or chills. HEAD: Denies any head trauma. ENT: Denies any earache. CVS: Denies any chest pain. RESPIRATORY: Denies any shortness of breath. GI: Denies any nausea or vomiting. The rest of the review systems are negative except as in history of present illness. PAST MEDICAL HISTORY: Diabetes, hyperlipidemia, hypothyroidism, essential tremors, COPD. She is an ex-smoker. 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 She lives with her . She has been a smoker for 30 years. She still smokes. PAST SURGICAL HISTORY: Carpal tunnel surgery, tubal ligation, surgery for multiple abscesses in the past, ankle surgery for ankle fracture, now can walk with walker. PHYSICAL EXAM: VITAL SIGNS: Temperature 98.7, pulse of 91, blood pressure 149/79, respiratory rate of 18. HEENT: Normocephalic, atraumatic. NECK: Supple. CHEST: Is clear to auscultation bilaterally. No wheezing, no crackles. HEART: S1 and S2 audible. ABDOMEN: Is soft. She has abdominal abscess on the left-side with erythema and drainage. Purulence drainage is coming out. EXTREMITIES: No pedal edema. No cyanosis, clubbing or edema. NEUROLOGIC: Awake, alert. No focal neurologic deficit. LABS: White count 9,000, hemoglobin 11.7, platelets 255,000. Chemistry: Sodium 137, potassium 101, chloride 101, bicarb 23, BUN 14, creatinine 1.52, glucose 469. AST and ALT normal. ASSESSMENT: Ms. Sharif is a 57-year-old female abdominal wall who has abdominal wall abscess. CURRENT PROBLEMS 1. Abdominal wall abscess. 2. Diabetes mellitus. 3. Reported history of chronic obstructive pulmonary disease. 4. Smoker. 5. History of essential tremors. Recent deep brain stimulation surgery for this problem. PLAN: 1. IV Zosyn. 2. ID consult. 3. Surgery consult. Discussed with Dr. Tadeo. He will do incision and drainage in a.m. 4. Mild diabetic acidosis with a high anion gap. Will continue his IV fluids. Received fluid bolus in the emergency room. Patient received insulin, Lispro as well. I will consult endocrinology for further recommendations. 5. Start the patient on nebulizer treatment. Job#: [id number]
--- NOTE | 2018-08-27 19:24 | NUR ---
Pt admitted to unit at 1615, admission paper work completed and Pt seen by Carlyle Dillon and Dr. Michael. Consult for Dr. Wolff and wound consult in place. Pt oriented to room.
--- NOTE | 2018-08-27 19:30 | NUR ---
Received patient awake on bed, with ongoing IVF. Call light within reached, advised to call for assistance when needed. Patient complaints of pain to the Left lower abdominal wall wound 03/18. Will continue to monitor. NPO after midnight instructed to patient
[2018-08-27] MEDS: MORPHINE SULFATE INJ 4 MG/ML INJ IV PRN (20:07)
--- NOTE | 2018-08-27 20:10 | NUR ---
Wound cleansed with NS, patient refused to apply any dressing to the area, she wants it open to air.
[2018-08-27 21:00] VITALS: BP 138/65
[2018-08-27 21:09] VITALS: BP 124/77
[2018-08-28] VITALS (7 sets, daily range): BP systolic 111–158; BP diastolic 65–94
[2018-08-28] MEDS: SODIUM CHLORIDE 0.9% 1000ML 1,000 ML IV SCH ×4 (00:08→23:31)
[2018-08-28] MEDS: PIPERACILLIN/TAZO 2.25 GM 50 ML IV SCH ×5 (00:08→23:31)
[2018-08-28] MEDS: MORPHINE SULFATE INJ 4 MG/ML INJ IV PRN ×2 (03:58→17:22)
[2018-08-28 04:54] LABS: BASOPHILS # (AUTO) 0.1 (0.0-0.1); BASOPHILS % 0.6 % (0.0-1.0); EOSINOPHILS # (AUTO) 0.3 (0.0-0.4); EOSINOPHILS % 3.1 % (0.0-6.0); HEMATOCRIT 39.6 % (34.2-44.1); HEMOGLOBIN 12.7 g/dL (12.0-16.0); LYMPHOCYTES # (AUTO) 2.9 (1.0-3.2); LYMPHOCYTES % 34.7 % (18.0-39.1); MEAN CORPUSCULAR HEMOGLOBIN 29.9 pg (28-32); MEAN CORPUSCULAR HGB CONC 32.1 g/dL (31-35); MEAN CORPUSCULAR VOLUME 93.2 fL (81-99); MONOCYTES # (AUTO) 0.5 (0.2-0.8); MONOCYTES % 6.5 % (4.4-11.3); NEUTROPHILS # (AUTO) 4.5 (2.1-6.9); PLATELET COUNT 283 x10e3/uL (140-360); RED BLOOD COUNT 4.25 x10e6/uL (3.6-5.1); RED CELL DISTRIBUTION WIDTH 13.2 % (11.7-14.4)
[2018-08-28 05:09] LABS: ANION GAP 12.9 mmol/L (8-16); CALCIUM 8.9 mg/dL (8.4-10.2); CREATININE, SERUM 1.16 mg/dL (0.57-1.11); POTASSIUM 3.9 mmol/L (3.5-5.1)
[2018-08-28] MEDS: INSULIN LISPRO 100 UNIT/1 ML 3ML VIAL SQ SCH ×6 (07:30→21:28)
[2018-08-28] MEDS: INSULIN DETEMIR 100 UNIT/ML PEN SQ SCH ×2 (09:00→17:04)
--- NOTE | 2018-08-28 09:11 | NUR ---
Patient left the floor via hospital bed to go to OR
[2018-08-28] MEDS ORDERED: HYDROGEN PEROXIDE 120 ML BTL ONE (09:19)
--- NOTE | 2018-08-28 09:24 | NUR ---
Notified BRITNI Esteves with Dr. Michael of random vanc level. new orders received.
[2018-08-28] MEDS ORDERED: BACITRACIN 50,000 UNIT VIAL ONE (09:27)
[2018-08-28] MEDS ORDERED: ONDANSETRON HCL INJ 2 MG/ML VIAL IV PRN (10:30)
[2018-08-28] MEDS ORDERED: HYDROMORPHONE 2MG/ML 2 MG/ML ML ONE (10:45)
[2018-08-28] MEDS ORDERED: DIPHENHYDRAMINE HCL INJ 50 MG/ML VIAL IV ONE (12:00)
[2018-08-28] MEDS: VANCOMYCIN 1GM/NS 250 ML 250 ML IV SCH (12:45)
[2018-08-28] MEDS: PANTOPRAZOLE SOD 40 MG TABEC PO SCH (12:54)
[2018-08-28] MEDS: DULOXETINE HCL 20 MG DELAYED RELEASE PO SCH (12:54)
[2018-08-28] MEDS: GABAPENTIN 300 MG CAP PO SCH ×2 (12:54→17:04)
--- NOTE | 2018-08-28 13:03 | Operative Report ---
DATE OF PROCEDURE: PREOPERATIVE DIAGNOSIS: Diabetic infection of the pubic and lower left abdominal wall. POSTOPERATIVE DIAGNOSIS: Diabetic infection of the pubic and lower left abdominal wall. PROCEDURE PERFORMED: Debridement of necrotic tissue of the abdominal wall and pubic area. ANESTHESIA: General. ESTIMATED BLOOD LOSS: Minimal. DRAINS: None. COMPLICATIONS: None. INDICATIONS AND FINDINGS: Patient is a pleasant 57-year-old diabetic with uncontrolled blood sugar, is admitted because of the above infection. On the left lower aspect of the abdomen on the lateral aspect of a Pfannenstiel incision, she had a necrotic area of skin as well as an abscess that was previously drained, leaving a defect that measured about 3 x 2 cm. Necrotic tissue in the upper part of that area was debrided. There was a smaller area in the pubic region inferior to that, superior to the labia, that was debrided. The aerobic and anaerobic cultures were taken. DESCRIPTION OF PROCEDURE: With the patient lying on the operative table in the supine position, after administration of general anesthesia, she was prepped and draped for debridement of necrotic tissue of abdominal wall and pubic area. The procedure was begun on the lower abdominal wall at the corner of the Pfannenstiel incision where there was necrotic tissue mainly on the upper aspect of the incision, and that was all debrided down to viable bleeding tissue. The edges of the defect were then freshened up by excising them. The defect was already there; so, it did not have to be enlarged nor did it have to be drained. There was no pus at that point since it had already drained spontaneously. We then packed that area with Betadine-containing 4 x 4. There was a small indurated area in the pubic region on the left superior to the genitalia, and that area was debrided and packed with Betadine gauze. The patient tolerated the procedure well, was taken to the recovery room in stable condition. Job#: [id number] EV
[2018-08-28 14:05] LABS: FREE T4 (FREE THYROXINE) 0.63 ng/dL (0.9-1.8); THYROID STIMULATING HORMONE 44.927 uIU/mL (0.350-4.940)
--- NOTE | 2018-08-28 14:10 | NUR ---
Visit made by the Spiritual Care Department Pastoral Visitor, Madelin Zuleta. Pt sleeping soundly and no family present. Pastoral Visitor left a card describing availability of software configuration specialist and instructions on how to contact a software configuration specialist. MICHAEL HERNANDEZ Service Station Attendant Spiritual Care Department O: [phone] Pager: [phone] ([phone] number calling from)
--- NOTE | 2018-08-28 14:32 | Consultation ---
DATE OF CONSULTATION: August 28, 2018 ENDOCRINE CONSULTATION This is a patient of Dr. Sanders. Thank you very much for referring this patient. HISTORY OF PRESENT ILLNESS: This is a 57-year-old female who is referred to me for evaluation of uncontrolled diabetes mellitus. Patient reportedly is a known diabetic for almost 20 years. Has multiple complications related to diabetes including severe diabetic sensorimotor neuropathy. Patient takes Levemir insulin 20 twice a day and Humalog insulin 14 three times a day. She came to the hospital with history of abdominal wall abscess. She also has history of mild hypertension and hyperlipidemia. The patient is an ex-smoker. She has history of COPD and hypothyroidism. Patient on several medications at home. PHYSICAL EXAMINATION: GENERAL: Today the patient is alert, awake, a little bit apprehensive. VITAL SIGNS: She is moderately overweight. Her heart rate is around 78. Blood pressure is 136/86 mmHg. HEENT: Examination essentially unremarkable. Thyroid is palpable. Clinically she is near euthyroid. CHEST: Bilateral vesicular breathing. She has bilateral bronchospasm. CARDIAC: Both 1st and 2nd heart sounds. There is no 3rd or 4th heart sound. Ejection sound grade 2/6. Patient has evidence of diabetic sensorimotor neuropathy in both lower extremities. ABDOMEN: She also has abdominal wall abscess, which has been drained. CLINICAL IMPRESSION: 1. Diabetes mellitus type 2, uncontrolled with complications. 2. Hyperlipidemia. 3. Mild hypertension. 4. She has abdominal wall abscess. The plan at this time is to do a hemoglobin A1c, thyroid function test. Adjust the insulin dose. Patient needs extensive diabetic and dietary education as well. Thanks again for referring this patient. I will be following this patient with you. Job#: [id number] EV MTDD
--- NOTE | 2018-08-28 14:57 | NUR ---
WOUND CARE CONSULTATION: THIS IS A 57 YEAR OLD FEMALE PATIENT ADMITTED TO [facility] FOR ABSCESS OF ABDOMINAL WALL. HEAD TO TOE SKIN ASSESSMENT PERFORMED. PATIENT HAS A SURGICAL DRESSING TO HER LEFT LOWER ABDOMINAL QUADRANT; DRESSING LEFT IN PLACE AND NOT REMOVED; DRESSING IS CLEAN, DRY, INTACT. NO OTHER WOUNDS NOTED WITH ASSESSMENT. EXPLAINED TO PATIENT THAT SURGEON WILL BE THE ONE TO REMOVE DRESSING AND RECONSULT WOUND CARE IN FUTURE IF HE FEELS IT IS NEEDED. LABS: WBC8.33 ALB3.2 [id number] WclH3O3.8 URINE, BLOOD, AND WOUND CULTURES PENDING. RECOMMENDATION: -CONTINUE WITH ALTERNATING PRESSURE RELIEF MATTRESS. -APPLY BILATERAL HEEL PROTECTORS WITH PILLOW SUSPENSION. -ENCOURAGE PATIENT TO TURN EVERY 2 HOURS AND PRN. THANK YOU FOR THIS WOUND CARE CONSULT. Addendum: 08/28/18 at 1504 by Rosy Schuster RN Amended: Links added.
--- NOTE | 2018-08-28 17:35 | NUR ---
Pt is alert and oriented. Lives with her Sanjay Sharif [phone]. Pt has a walker and shower bench that she uses at home. Pt requires some assistance with certain ADLs. Stated she doesn't drive but can. She just doesn't like to. Pt stated wound care team saw her and told her she may need to come to the clinic for wound care. Pt stated she does not want to do that and that she will need home health to assist with wound care. BEE explained to pt that home health will not come out daily to dress wound. Will need family member to help. She stated her daughter is able to assist. Her goal is to discharge home with home health. Family will provide transportation. BEE informed CONNIE Arce of pt's needs. Cm will follow up.
[2018-08-28] MEDS ORDERED: MIDAZOLAM HCL 2 MG/2 ML VIAL ONE (19:20)
[2018-08-28] MEDS ORDERED: KETAMINE HCL INJ 50 MG/ML 10 ML VIAL ONE (19:20)
[2018-08-28] MEDS ORDERED: FENTANYL CITRATE/PF 100MCG/2 ML INJ ONE (19:20)
[2018-08-28] MEDS ORDERED: SEVOFLURANE INHAL SOLN 250 ML PEN BTL ONE (19:20)
[2018-08-28] MEDS ORDERED: DEXAMETHASONE SOD PHOS INJ 4 MG/ML VIAL ONE (19:20)
[2018-08-28] MEDS ORDERED: ONDANSETRON HCL INJ 2 MG/ML VIAL ONE (19:20)
--- NOTE | 2018-08-28 19:25 | NUR ---
Received patient awake on bed, with ongoing IV fluids, dressing dry and intact, complaints of very minimal pain at this time, tolerable per patient. Advised patient to call for assistance when needed. Call light within reached, will continue to monitor
[2018-08-28] MEDS: SIMVASTATIN 40 MG TAB PO SCH (21:28)
[2018-08-29] VITALS (8 sets, daily range): BP systolic 117–147; BP diastolic 55–75
[2018-08-29] MEDS: PIPERACILLIN/TAZO 2.25 GM 50 ML IV SCH ×3 (05:29→17:19)
--- NOTE | 2018-08-29 07:00 | NUR ---
RCD PT AT BED PT IS ALERT AND ORIENTED ASSESSMENT DONE PT RESTING ON BED NO SIGNS OF ANY DISTRESS NOTED IV PATENT WOUND ON THE LEFT ABDOMEN COVERED BY DRESSING BED LOW AND LOCKED CALL LIGHT IN REACH
[2018-08-29] MEDS: SODIUM CHLORIDE 0.9% 1000ML 1,000 ML IV SCH ×2 (07:17→19:13)
[2018-08-29] MEDS: INSULIN LISPRO 100 UNIT/1 ML 3ML VIAL SQ SCH ×4 (07:30→21:00)
[2018-08-29] MEDS: INSULIN DETEMIR 100 UNIT/ML PEN SQ SCH ×2 (09:00→21:00)
[2018-08-29] MEDS: PANTOPRAZOLE SOD 40 MG TABEC PO SCH (09:00)
[2018-08-29] MEDS: DULOXETINE HCL 20 MG DELAYED RELEASE PO SCH (09:00)
[2018-08-29] MEDS: GABAPENTIN 300 MG CAP PO SCH ×2 (09:00→17:00)
[2018-08-29] MEDS: LEVALBUTEROL HCL SOLN NEBU 1.25 MG/3 ML NEB INH SCH ×2 (12:16→19:40)
[2018-08-29] MEDS: VANCOMYCIN 1GM/NS 250 ML 250 ML IV SCH (13:00)
[2018-08-29] MEDS: TRAMADOL HCL 50 MG TAB PO PRN (13:50)
--- NOTE | 2018-08-29 14:43 | NUR ---
Received order for home health for wound care. BEE spoke with pt at bedside. She stated she thinks she had [facility] previously. Would like to use them as first choice. [facility] staff and [facility] as second and third. Choice letter signed and placed in chart. Copy to pt. BEE explained to pt again that home health will not come out daily to change dressing. Advised pt to have family available tomorrow when Dr. Maira Tadeo changes dressing for teaching. CONNIE Cannon stated she will teach family tomorrow as well. Referral was faxed to [facility] at [phone] / P [phone].
--- NOTE | 2018-08-29 15:22 | NUR ---
Received call from Yazmin at [facility]. They have received referral and will work on it now
--- NOTE | 2018-08-29 18:43 | NUR ---
PT RESTING ON BED BED SIDE REPORT GIVEN TO ONCOMING NURSE
[2018-08-29] MEDS: SIMVASTATIN 40 MG TAB PO SCH (21:00)
[2018-08-30] VITALS (8 sets, daily range): BP systolic 116–167; BP diastolic 65–80
[2018-08-30] MEDS: LEVALBUTEROL HCL SOLN NEBU 1.25 MG/3 ML NEB INH SCH ×4 (00:56→20:17)
[2018-08-30 05:12] LABS: BASOPHILS # (AUTO) 0.1 (0.0-0.1); BASOPHILS % 0.5 % (0.0-1.0); EOSINOPHILS # (AUTO) 0.2 (0.0-0.4); EOSINOPHILS % 1.8 % (0.0-6.0); HEMATOCRIT 37.5 % (34.2-44.1); HEMOGLOBIN 12.4 g/dL (12.0-16.0); LYMPHOCYTES # (AUTO) 3.2 (1.0-3.2); LYMPHOCYTES % 33.2 % (18.0-39.1); MEAN CORPUSCULAR HEMOGLOBIN 30.4 pg (28-32); MEAN CORPUSCULAR HGB CONC 33.1 g/dL (31-35); MEAN CORPUSCULAR VOLUME 91.9 fL (81-99); MONOCYTES # (AUTO) 0.5 (0.2-0.8); MONOCYTES % 5.1 % (4.4-11.3); NEUTROPHILS # (AUTO) 5.7 (2.1-6.9); NEUTROPHILS % 58.7 % (38.7-80.0); PLATELET COUNT 272 x10e3/uL (140-360); RED BLOOD COUNT 4.08 x10e6/uL (3.6-5.1); RED CELL DISTRIBUTION WIDTH 13.1 % (11.7-14.4)
[2018-08-30 05:33] LABS: CALCIUM 9.1 mg/dL (8.4-10.2); CREATININE, SERUM 1.18 mg/dL (0.57-1.11)
[2018-08-30] MEDS: PIPERACILLIN/TAZO 2.25 GM 50 ML IV SCH ×5 (05:55→23:37)
[2018-08-30] MEDS ORDERED: LEVOTHYROXINE SODIUM 75 MCG TAB PO SCH ×2 (06:00)
--- NOTE | 2018-08-30 06:33 | Diagnostic Imaging Report ---
EXAMINATION: CHEST SINGLE (PORTABLE) INDICATION: Shortness of breath COMPARISON: None FINDINGS: AP view TUBES and LINES: None. LUNGS: Lungs are well inflated. Lungs are clear. There is no evidence of pneumonia or pulmonary edema. PLEURA: No pleural effusion or pneumothorax. HEART AND MEDIASTINUM: The cardiomediastinal silhouette is unremarkable. BONES AND SOFT TISSUES: No acute osseous lesion. Battery pack projects over the left chest with lead extending superiorly over the left neck, out of the field of view UPPER ABDOMEN: No free air under the diaphragm. IMPRESSION: No acute thoracic abnormality. Signed by: DR. Jonnie Palomo MD on 08/30/2018 6:30 AM
[2018-08-30] MEDS: LEVOTHYROXINE SODIUM 100 MCG TAB PO SCH (06:40)
[2018-08-30] MEDS: INSULIN LISPRO 100 UNIT/1 ML 3ML VIAL SQ SCH ×4 (07:30→23:08)
[2018-08-30] MEDS: PANTOPRAZOLE SOD 40 MG TABEC PO SCH (09:00)
[2018-08-30] MEDS: INSULIN DETEMIR 100 UNIT/ML PEN SQ SCH ×2 (09:00→23:08)
[2018-08-30] MEDS: GABAPENTIN 300 MG CAP PO SCH ×2 (09:00→17:00)
[2018-08-30] MEDS: DULOXETINE HCL 20 MG DELAYED RELEASE PO SCH (09:00)
--- NOTE | 2018-08-30 09:30 | NUR ---
dressing changed on the abdomen
--- NOTE | 2018-08-30 09:30 | NUR ---
TEACH HER HOW TO CHANGE THE DRESSING AND SHOWED HIM HE SAID HE UNDERSTOOD
[2018-08-30] MEDS: TRAMADOL HCL 50 MG TAB PO PRN (09:35)
[2018-08-30] MEDS ORDERED: INSULIN LISPRO 100 UNIT/1 ML 3ML VIAL SQ ONE (12:45)
[2018-08-30] MEDS: VANCOMYCIN 1GM/NS 250 ML 250 ML IV SCH (13:00)
[2018-08-30] MEDS ORDERED: SODIUM CHLORIDE 0.9% 250ML 250 ML ONE (13:50)
--- NOTE | 2018-08-30 14:51 | Diagnostic Imaging Report ---
Examination: Single AP view of the chest. COMPARISON: Portable chest 08/30/2018 INDICATION: PICC line placement IMPRESSION: 1. Lines and Tubes: Interval placement of right-sided PICC line, which has its distal tip projecting in the right atrium. Recommend retraction of approximately 2.5 cm 2. Otherwise no interval change. Signed by: Dr. Eliazar Saunders M.D. on 08/30/2018 2:48 PM
--- NOTE | 2018-08-30 15:13 | Diagnostic Imaging Report ---
Examination: Single AP view of the chest. COMPARISON: Chest AP 08/30/2018 INDICATION: PICC line placement IMPRESSION: 1. Lines and Tubes: Right-sided PICC line with distal tip projecting at the cavoatrial junction. 2. Otherwise no interval change. Signed by: Dr. Eliazar Saunders M.D. on 08/30/2018 3:10 PM
--- NOTE | 2018-08-30 18:42 | NUR ---
PT RESTING ON BED BED SIDE REPORT GIVEN TO ONCOMING NURSE
--- NOTE | 2018-08-30 19:16 | NUR ---
Report received and walking rounds complete. Pt resting in bed watching tv and in no apparent distress. All safety measures ensured and pt call light near.
[2018-08-30] MEDS: SIMVASTATIN 40 MG TAB PO SCH (23:08)
[2018-08-31] VITALS: BP 147/67
[2018-08-31] MEDS: LEVALBUTEROL HCL SOLN NEBU 1.25 MG/3 ML NEB INH SCH ×3 (00:15→13:15)
[2018-08-31 04:00] VITALS: BP 149/64
[2018-08-31] MEDS: PIPERACILLIN/TAZO 2.25 GM 50 ML IV SCH ×3 (05:31→16:42)
[2018-08-31] MEDS: LEVOTHYROXINE SODIUM 100 MCG TAB PO SCH (05:31)
--- NOTE | 2018-08-31 07:03 | NUR ---
Received patient mid fowlers position, side rails upx1, call light within reach. AAOX4 to time, person, place, situation. Respirations even and unlabored. Educated on safety precautions and importance of having 2 rails up. Patient remains refusing to have 2 rails up. Instructed to use call light for assistance. Voiced understanding.
[2018-08-31 08:00] VITALS: BP 142/63
[2018-08-31] MEDS: DULOXETINE HCL 20 MG DELAYED RELEASE PO SCH (08:35)
[2018-08-31] MEDS: PANTOPRAZOLE SOD 40 MG TABEC PO SCH (08:35)
[2018-08-31] MEDS: GABAPENTIN 300 MG CAP PO SCH ×2 (08:35→16:41)
[2018-08-31] MEDS: INSULIN DETEMIR 100 UNIT/ML PEN SQ SCH (08:36)
[2018-08-31] MEDS: TRAMADOL HCL 50 MG TAB PO PRN ×2 (08:36→17:45)
[2018-08-31] MEDS: INSULIN LISPRO 100 UNIT/1 ML 3ML VIAL SQ SCH ×3 (08:36→16:42)
[2018-08-31 08:40] VITALS: BP 142/63
[2018-08-31] MEDS ORDERED: VANCOMYCIN1 GM/250 M IV (10:30)
--- NOTE | 2018-08-31 10:52 | NUR ---
Spoke with Dr. Michael regarding outpatient IV abx. He asked CM call his nurse [facility]. CM called [facility]. She said to fax fs to them and pt can come in on Monday at 11. [facility] will handle everything. CONNIE New was updated. She will contact BRITNI Esteves or Dr. Michael for abx orders thru the weekend. CM spoke with pt at bedside. Pt is agreeable to have IV abx set up with thru Dr. Michael's office. Choice letter signed and placed in chart. Copy to pt. Facesheet faxed to [phone]. BEE spoke to Floridalma with [facility] and updated her that pt is discharging today. She said they will be able to see pt tomorrow. She will contact pt. IMM letter delivered and explained to pt. She verbalized understanding. Signed copy placed in chart. Copy to pt.
--- NOTE | 2018-08-31 11:38 | Discharge Summary ---
This is a patient of Dr. Ramon Koch, Dr. Michael, Dr. Wolff. This unfortunate, 57-year-old diabetic, with suspected noncompliance, hypothyroidism, history of diabetes, hyperlipidemia and essential tremors, was admitted with abscess in the groin requiring drainage. Treated with Zosyn and vancomycin. Gram stain showed gram-positive organism. Cultures were negative. The wound was drained by Dr. Tadeo. She was treated with antibiotics. TSH was elevated at 48. Hemoglobin A1c was 9.8. Will be discharged on IV vancomycin 1 gram once a day as ordered by Dr. Michael and Humalog sliding-scale insulin. Continue Cymbalta 20 and Neurontin 300 b.i.d. Currently on Levemir insulin 27 units q.12 h. to be adjusted by Dr. Wolff, Synthroid 200 mcg, Protonix 40, Zocor 80. Will be discharged with home health, to be followed up by Dr. Ramon Koch. KASSIE CANTU MD Job#: [id number]
[2018-08-31 12:00] VITALS: BP 145/64
[2018-08-31] MEDS ORDERED: LANTUS 3ML100 UNITS/ SC (13:06)
[2018-08-31] MEDS ORDERED: HUMALOG100 UNIT/1 SC (13:06)
[2018-08-31] MEDS ORDERED: INSULIN LISPRO 100 UNIT/1 ML 3ML VIAL SQ ONE (13:15)
[2018-08-31] MEDS ORDERED: VANCOMYCIN HCL 1.5 GM in SODIUM CHLORIDE 0.9% 250ML 300 ML IV SCH ×4 (13:45)
[2018-08-31] MEDS ORDERED: DOXYCYCLINE HY100 MG PO (13:56)
--- NOTE | 2018-08-31 14:00 | NUR ---
Informed patient of 's orders to take lantus 35 units twice a day and Humalog 20-25 TID (with meals). Educated patient on medications. Voiced understanding. Notified patient no rx left for insulin, only those instructions. Patient states "I don't need prescription, I have lantus and humalog at home. " Educated patient on insulin administration. Patient voiced understanding and returned demonstration. States "I've been on insulin for many years now."
--- NOTE | 2018-08-31 14:11 | NUR ---
Dr. Alec valencia. Wrote prescription for PO Doxycycline. Said for pt to come into office at 10am on Monday for outpatient IV abx. IV Antibiotics thru Dr. Michael's office [facility] [address] [place] [address] Home health with [facility] [address] [place] [address] [address] [address] Anticipated start date: 09/01/18 Above information printed out and given to pt.
--- NOTE | 2018-08-31 14:16 | Progress Note ---
DATE: INFECTIOUS DISEASE PROGRESS NOTE SUBJECTIVE: Ms. Sharif is doing quite well. She has no complaints for the time. REVIEW OF SYSTEMS: At the present time. HEENT: Negative. PULMONARY: Negative. CARDIAC: Negative. : Negative. OBJECTIVE GENERAL: She is alert oriented, and does not seem to be in acute distress. VITAL SIGNS: Stable, currently afebrile. HEENT: She is not icteric. NECK: Supple. CHEST: Clear. HEART: S1 and S2, no murmur. ABDOMEN: Soft. Bowel sounds are present. No tenderness. EXTREMITIES: There is some redness, erythema and edema with some minimal drainage noted on the dressing. IMPRESSION: Abscess status post drainage. Cultures are negative. Because of her obesity and some erythema, will give her another week or two of IV vancomycin depending on clinical progress. Patient was discharged home today. Will give her one more dose of IV vancomycin. Discussed with the patient. Will follow. Job#: [id number]
--- NOTE | 2018-08-31 16:00 | NUR ---
Right PICC line dressing changed.
--- NOTE | 2018-08-31 17:45 | NUR ---
Wound care supplies given to patient. Educated on dressing changes to patient and . Voiced understanding and returned demonstration.
--- NOTE | 2018-08-31 18:10 | NUR ---
Right PICC line not discontinued as ordered. Right PICC line clean, dry, and intact. Taken via wheelchair to personal car.Accompanied by . AAOX4 to time,person, place, situation. Respirations even and unlabored. Dressing to Left lower abdomen and left groin clean, dry, and intact. Discharge instructions, rx, and all personal belongings taken with patient.
[2018-08-31] MEDS ORDERED: INSULIN DETEMIR 100 UNIT/ML PEN SQ SCH (21:00)
== END 2018-08-31 18:17 | disposition home health service (06) | DRG 571 ==
LOC: ER 11:53 → ERHOLD 14:01 → MED/SURG2 15:55
PROVIDERS: ADMIT Internal Medicine; ATTEND Internal Medicine
PROC: 0JB80ZZ Excision of Abdomen Subcutaneous Tissue and Fascia, Open Approach (ICD-10-PCS; principal; 2018-08-28 10:00)
PROC: 02HV33Z Insertion of Infusion Device into Superior Vena Cava, Percutaneous Approach (ICD-10-PCS; 2018-08-30)
PROC: 02HV33Z Insertion of Infusion Device into Superior Vena Cava, Percutaneous Approach (ICD-10-PCS; 2018-08-30)
DX: L02.211 Cutaneous abscess of abdominal wall (principal); N17.9 Acute kidney failure, unspecified; E11.65 Type 2 diabetes mellitus with hyperglycemia; Z79.4 Long term (current) use of insulin; Z91.128 Patient's intentional underdosing of medication regimen for other reason; E03.9 Hypothyroidism, unspecified; E78.5 Hyperlipidemia, unspecified; G25.0 Essential tremor; E11.42 Type 2 diabetes mellitus with diabetic polyneuropathy; E11.22 Type 2 diabetes mellitus with diabetic chronic kidney disease; E66.9 Obesity, unspecified; Z68.38 Body mass index [BMI] 38.0-38.9, adult; G47.33 Obstructive sleep apnea (adult) (pediatric); J44.9 Chronic obstructive pulmonary disease, unspecified; F17.210 Nicotine dependence, cigarettes, uncomplicated; I10 Essential (primary) hypertension
CPT/HCPCS: 36415; 36569; 71045; 80048; 80053; 80202; 81001; 82948; 83036; 83605; 83735; 84439; 84443; 85025; 87040; 87071; 87086; 87205; 94640; 96372; 99284; J1100; J1200; J2250; J2270; J2405; J2543; J3370; J7030; J7050

== ENCOUNTER → 2019-03-25 | Outpatient (CLI) | payer MEDICARE ==
[~2019-03-25] MED LIST changes: +CYMBALTA20 MG PO; +DOXYCYCLINE HY100 MG PO; +LANTUS 3ML100 UNITS/ SC; +LEVOTHYROXINE200 MCG PO; +VANCOMYCIN1 GM/250 M IV
--- NOTE | 2019-03-25 15:02 | Diagnostic Imaging Report ---
Solid-phase gastric emptying study Reason for examination: Epigastric pain and nausea The protocol used for this study is based on the Consensus Recommendations for Gastric Scintigraphy by the [place] [employer] Society and the Society of Nuclear Medicine. Clinical information: The patient is diabetic; blood sugar today is 180 mg/dL. The patient has not had previous gastrointestinal surgery. The patient is not on any medications expected to affect gastric motility. The patient has been fasting for at least 6 hours prior to this exam. Radiopharmaceutical: Tc-99m sulfur colloid 1 mCi Report: The radiopharmaceutical was added to 1/2 cup egg whites that were then prepared and served with 2 pieces of white bread toasted, 30 grams of jam and 4 ounces of water. The patient took the meal orally without difficulty. Images were obtained of the abdomen in the anterior and posterior projections at 10 minutes post the meal and at 1and 2 hours. Uptake was determined from the geometric mean of the anterior and posterior counts and the counts were corrected for decay of the radiolabel. The percent gastric retention of the labeled meal at: 1 hour was 61% (normal 30-90%) 2 hours was 27% (normal <60%; if <35% at 2 hours, study is considered normal) Impression: The pattern of gastric emptying is normal. Scan findings do not support the clinical diagnosis of gastroparesis. Signed by: Dr. Lakshmi Neumann M.D. on 03/25/2019 2:58 PM
== END ==
LOC: NM 08:03
PROVIDERS: ATTEND Internal Medicine Gastroenterology
DX: R10.13 Epigastric pain (principal); R11.0 Nausea
CPT/HCPCS: 78264; A9541

== ENCOUNTER → 2019-05-03 | Day surgery (SDC) | payer MEDICARE ==
[2019-04-30 13:27] LABS: BASOPHILS # (AUTO) 0.1 (0.0-0.1); BASOPHILS % 0.6 % (0.0-1.0); EOSINOPHILS # (AUTO) 0.2 (0.0-0.4); EOSINOPHILS % 2.5 % (0.0-6.0); HEMATOCRIT 42.8 % (34.2-44.1); LYMPHOCYTES # (AUTO) 2.8 (1.0-3.2); LYMPHOCYTES % 29.2 % (18.0-39.1); MEAN CORPUSCULAR HEMOGLOBIN 29.8 pg (28-32); MEAN CORPUSCULAR HGB CONC 32.7 g/dL (31-35); MEAN CORPUSCULAR VOLUME 91.1 fL (81-99); MONOCYTES # (AUTO) 0.7 (0.2-0.8); NEUTROPHILS # (AUTO) 5.8 (2.1-6.9); NEUTROPHILS % 60.3 % (38.7-80.0); PLATELET COUNT 305 x10e3/uL (140-360); RED CELL DISTRIBUTION WIDTH 13.9 % (11.7-14.4)
--- NOTE | 2019-04-30 13:47 | Diagnostic Imaging Report ---
EXAMINATION: CHEST 2 VIEWS INDICATION: Pre-operative, shortness of breath COMPARISON: Multiple prior chest radiograph, most recently of 08/30/2018 FINDINGS: TUBES and LINES: Battery pack projects over the left upper chest with lead extending superiorly out of view. LUNGS: The lung volumes are normal. No focal consolidation or pulmonary edema. PLEURA: No pleural effusion or pneumothorax. HEART AND MEDIASTINUM: The cardiomediastinal silhouette is normal in size and contour. BONES AND SOFT TISSUES: Old left lateral rib fracture deformity appears unchanged. No acute osseous injury. UPPER ABDOMEN: No free air under the diaphragm. IMPRESSION: No focal pneumonia or pulmonary edema. Signed by: Brionna Cedeño MD on 04/30/2019 1:44 PM
[~2019-05-03] MED LIST changes: +LIDOCAINE HCL 2% LOCAL INJ 5 ML SDV VIAL INJ ONE; +PROPOFOL IV EMULSION 10 MG/ML 20 ML VIAL ONE; +TOPIRAMATE100 MG PO
--- OUTSIDE RECORDS SUMMARY | 2019-05-03 05:33 | XMS REPORT ---
Author Author [facility] Address Unknown Phone Unavailable Care Team Providers Care Tinner Automatic Name Role Phone David PELLETIER Unavailable Unavailable KATHY, MALLIKA Unavailable Unavailable Problems This patient has no known problems. Allergies, Adverse Reactions, Alerts This patient has no known allergies or adverse reactions. Medications This patient has no known medications. Results Test Description Test Time Test Comments Text Results Atomic Results Result Comments CHEST 2 VIEWS 2019-04-30 13:41:00 [place] [address] Patient Name: JOHN DAVID MR #: [id number] : 1960 Age/Sex: 58/F Req #: [id number] Adm Physician: Ordered by: KARMEN PELLETIER MD Report #: [id number] Location: OR Room/Bed: Procedure: [id number] DX/CHEST 2 VIEWS Exam Date: 04/30/19 Exam Time: 1245 REPORT STATUS: Signed EXAMINATION: CHEST 2 VIEWS INDICATION: Pre-operativ e, shortness of breath COMPARISON: Multiple prior chest radiograph, most recently of 08/30/2018 FINDINGS: TUBES and LINES: Battery pack projects over the left upper chest with lead extending superiorly out of view. LUNGS: The lung volumes are normal. No focal consolidation or pulmonary edema. PLEURA: No pleural effusion or pneumothorax. HEART AND MEDIASTINUM: The cardiomediastinal silhouette is normal in size and contour. BONES AND SOFT TISSUES: Old left lateral rib fracture deformity appears unchanged. No acute osseous injury. UPPER ABDOMEN: No free air under the diaphragm. IMPRESSION: No focal pneumonia or pulmonary edema. Signed by: David Vega MD on 04/30/2019 1:44 PM Dictated By: DAVID VGEA MD 1340 Transcribed By: KRIS on 04/30/19 134 COPY TO: KARMEN PELLETIER MD GASTRIC EMPTYING 2019-03-25 14:56:00 [place] [address] Patient Name: JOHN DAVID MR #: [id number] : 1960 Age/Sex: 58/F Req #: [id number] Adm Physician: Ordered by: KARMEN PELLETIER MD Report #: [id number] Location: OR Room/Bed: Procedure: [id number] NM/GASTRIC EMPTYING Exam Date: Exam Time: REPORT STATUS: Signed Solid-phase gastric emptying study Reason for examination: Epigas tric pain and nausea The protocol used for this study is based on the Consensus Recommendations for Gastric Scintigraphy by the [place] [employer] Society and the Society of Nuclear Medicine. Clinical information: The patient is diabetic; blood sugar today is 180 mg/dL. The patient has not had previous gastrointestinal surgery. The patient is not on any medications expected to affect gastric motility. The patient has been fasting for at least 6 hours prior to this exam. Radiopharmaceutical: Tc-99m sulfur colloid 1 mCi Report: The radiopharmace utical was added to 1/2 cup egg whites that were then prepared and served with 2 pieces of white bread toasted, 30 grams of jam and 4 ounces of water. The patient took the meal orally without difficulty. Images were obtained of the abdomen in the anterior and posterior projections at 10 minutes post the meal and at 1and 2 hours. Uptake was determined from the geometric mean of the anterior and posterior counts and the counts were corrected for decay of the radiolabel. The percent gastric retention of the labeled meal at: 1 hour was 61% (normal 30-90%) 2 hours was 27% (normal <60%; if <35% at 2 hours, study is considered normal) Impression: The pattern of gastric emptying is normal. Scan findings do not support the clinical diagnosis of gastroparesis. Signed by: Dr. Dede Neumann M.D. on 03/25/2019 2:58 PM Dictated By: DEDE NEUMANN MD 57 Transcribed By: KRIS on 03/25/191457 COPY TO: KARMEN PELLETIER MD CHEST XRAY LINE PLACEMENT 2018-08-30 15:09:00 [place] [address] Patient Name: JOHN DAVID MR #: [id number] : 1960 Age/Sex: 57/F Req #: [id number] [facility] Physician: MALLIKA CHAVEZ MD Ordered by: MARTÍN SIEGEL MD Report #: [id number] Location: [facility] Room/Bed: [facility] Procedure: [id number] DX/CHEST XRAY LINE PLACEMENT Exam Date: 08/30/18 Exam Time: 1455 REPORT STATUS: Signed Examination: Single AP view of the chest. CO MPARISON: Chest AP 08/30/2018 INDICATION: PICC line placement IMPRESSION: 1. Lines and Tubes: Right-sided PICC line with distal tip projecting at the cavoatrial junction. 2. Otherwise no interval change. Signed by: Dr. Cuong Saunders M.D. on 08/30/2018 3:10 PM Dictated By: CUONG SAUNDERS MD 09 Transcribed By: KRIS on 08/30/181509 COPY TO: MARTÍN SIEGEL MD CHEST XRAY LINE PLACEMENT 2018-08-30 14:47:00 [place] [address] Patient Name: JOHN DAVID MR #: [id number] : 1960 Age/Sex: 57/F Req #: [id number] Adm Physician: MALLIKA CHAVEZ MD Ordered by: MARTÍN SIEGEL MD Report #: [id number] Location: [facility] Room/Bed: [facility] Procedure: [id number] DX/CHEST XRAY LINE PLACEMENT Exam Date: 08/30/18 Exam Time: 1439 REPORT STATUS: Signed Examination: Single AP view of the chest. CO MPARISON: Portable chest 08/30/2018 INDICATION: PICC line placement IMPRESSION: 1. Lines and Tubes: Interval placement of right-sided PICC line, which has its distal tip projecting in the right atrium. Recommend retraction of approximately 2.5 cm 2. Otherwise no interval change. Signed by: Dr. Cuong Saunders M.D. on 08/30/2018 2:48 PM Dictated By: CUONG SAUNDERS MD 47 Transcribed By: KRIS on 08/30/181447 COPY TO: MARTÍN SIEGEL MD CHEST SINGLE (PORTABLE) 2018-08-30 06:29:00 [place] [address] Patient Name: JOHN DAVID MR #: [id number] : 1960 Age/Sex: 57/F Req #: [id number] Adm Physician: MALLIKA CHAVEZ MD Ordered by: MALLIKA CHAVEZ MD Report #: [id number] Location: [facility]/SURG2 Room/Bed: [facility] Procedure: [id number] DX/CHEST SINGLE (PORTABLE) Exam Date: 08/30/18 Exam Time: 0535 REPORT STATUS: Signed EXAMINATION: CHEST SINGLE (PORTABLE) I NDICATION: Shortness of breath COMPARISON: None FINDINGS: AP view TUBES and LINES: None. LUNGS: Lungs are well inflated. Lungs are clear. There is no evidence of pneumonia or pulmonary edema. PLEURA: No pleural effusion or pneumothorax. HEART AND MEDIASTINUM: The cardiomediastinal silhouette is unremarkable. BONES AND SOFT TISSUES: No acute osseous lesion. Battery pack projects over the left chest with lead extending superiorly over the left neck, out of the field of view UPPER ABDOMEN: No free air under the diaphragm. IMPRESSION: No acute thoracic abnormality. Signed by: DR. Jonnie Donovan MD on 08/30/2018 6:30 AM Dictated By: JONNIE DONOVAN MD 9 Transcribed By: KRIS on 08/30/18629 COPY TO: MALLIKA CHAVEZ MD
--- OUTSIDE RECORDS SUMMARY | 2019-05-03 05:33 | XMS REPORT | Clinical Summary ---
Author Author [facility] [place] [facility] Address Unknown Phone Unavailable Care Team Providers Care Relations Manager Name Role Phone Ramon Koch MD PCP Allergies Comments Active Allergy Reactions Severity Noted Date Cefotaxime Anaphylaxis High 06/21/2018 "clarforin-antibiotic" Other Anaphylaxis High 06/20/2018 Sulfa (Sulfonamide [...] 40 mg by 0 tablet mouth daily. Active fluconazole (DIFLUCAN) TK 1 T PO QD 1 200 MG tablet 9 Active aspirin (ECOTRIN) 81 MG Take 81 mg by 0 enteric coated tablet mouth nightly. Active insulin ASPART (NovoLOG) Inject 20 0 100 unit/mL injection Units under the skin 3 (three) times a day before meals. 06/22/2018 Discontinued aspirin (ECOTRIN) 81 MG Take [...] 50 Take 2 pills 120 tablet 11 01/03/201 MG tablet Twice daily 7 06/20/2018 Discontinued levoFLOXacin (LEVAQUIN) TK 1 T PO QD 0 500 MG tablet 8 06/20/2018 Discontinued aexelhfb-oigxegbyh-DQ INSTILL 4 0 (CORTISPORIN) DROPS IN BOTH [...] a day for 20 days. 07/05/2018 Discontinued bpgmjsxbmf-kwxcayb-rfiboa Take 1 50 capsule 0 ne (FIORINAL) [...] moderate pain for up to 30 doses. 04/05/2019 Discontinued clindamycin (CLEOCIN) 300 TK 2 CS PO 0 03/28/ MG capsule TID FOR 10 9 DAYS. TAKE WITH FOOD. 04/25/2019 acetaminophen-codeine Take 1 tablet 20 tablet 0 (TYLENOL WITH CODEINE #3) by mouth 9 300-30 mg per tablet every 4 (four) hours as needed for moderate pain for up to 20 days. 04/15/2019 linezolid (ZYVOX) 600 mg Take 1 tablet 20 tablet 0 tablet (600 mg 9 total) by mouth 2 (two) times a day for 10 days. 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/2016 Obstructive sleep apnea syndrome 08/04/2016 Spasmodic torticollis 08/04/2016 Neuropathy 08/04/2016 Tremor 08/04/2016 Encounters Care Team Description Date Type Specialty Humberto Blake, KINZA 04/04/2019 Anesthesia General Surgery Event Evelyn Kimbrough MD INCISION & DRAINAGE OF ABSCESS-RIGHT PUBIC REGION 04/04/2019 Surgery General Surgery West Ocasio MD Nguyen, Daniel Nha, MD Gupta, Ganesh Prasad, MD Abscess of right genital labia (Primary Dx); Abscess of skin 04/01/2019 [facility] General Internal Medicine - Encounter 04/05/2019 Jon Christiansen MD Essential tremor (Primary Dx); Spasmodic torticollis; Tremor 08/21/2018 Office Visit Neurology Jon Christiansen MD Neuropathy (Primary Dx); Tremor 07/23/2018 Office Visit Neurology Jon Christiansen MD 07/18/2018 Telephone Neurology Delia Abreu RN Essential tremor (Primary Dx) 07/16/2018 Clinical Neurosurgery Support Burak Calderon MD PLACEMENT DBS IPG'S AND EXTENSIONS, STAGE 2 07/05/2018 Surgery General Surgery Hannah Guthrie MD 07/05/2018 Anesthesia General Surgery Event Burak Calderon MD Essential tremor 07/05/2018 Hospital General Surgery Encounter Delia Abreu RN Essential tremor (Primary Dx) 07/04/2018 Prep for Neurosurgery Surgery Irvin Wyatt, KINZA 06/21/2018 Anesthesia General Surgery Event Burak [...] Essential tremor 06/18/2018 Hospital Radiology Encounter Jon Christiansen MD 06/08/2018 Telephone Neurology Burak Calderon MD Essential tremor (Primary Dx) 06/06/2018 Transcribe Neurosurgery Orders Burak Calderon MD Benign essential tremor (Primary Dx); Tremor 06/04/2018 Office Visit Neurosurgery Burak Calderon MD 05/24/2018 Abstract Neurosurgery after 05/02/2018 Immunizations Name Dates Previously Given Next Due [...] Vital Signs Time Taken Vital Sign Reading 04/05/2019 11:23 AM CDT Blood Pressure 119/59 04/05/2019 11:23 AM CDT Pulse 90 04/05/2019 11:23 AM CDT Temperature 36.8 C (98.3 F) 04/05/2019 11:23 AM CDT Respiratory Rate 16 04/05/2019 11:23 AM CDT Oxygen Saturation 93% - Inhaled Oxygen - Concentration 04/04/2019 12:03 PM CDT Weight 100 kg (221 lb) 04/04/2019 12:03 PM CDT Height 167.6 cm (5' 6") 04/04/2019 12:03 PM CDT Body Mass Index 35.67 Plan of Treatment Health Maintenance Due Date Last Done Comments COLONOSCOPY SCREENING 2011 SHINGLES VACCINES (#1) 2011 INFLUENZA VACCINE 05/09/2019 06/22/2018 BREAST CANCER SCREENING 03/21/2020 03/21/2018, 08/22/2016, 11/27/2014, Additional history exists Implants Device Identifier Shelf Expiration Date Model / Serial / Lot Implanted Type Area Manufactur er 11/14/2020 [id number] / / [id number] Kit Lead Dbs Elctrd 1.5mm 40cm - Neurosurgi Left: Brain [employer] [id number] [facility] - Implanted: Qty: 1 on 06/21/2018 by Implants NEUROLOGIC Burak Calderon MD AL 01/20/2019 [id number] / [id number] / [id number] Neurostimulator Imp Activa Neurosurgi N/A: N/A [employer] [id number] Rechrgbl For Dbs 1.6oz - allie NEUROMODUL [id number] - [id number] Implants ATION Implanted: Qty: 1 on 07/05/2018 by Burak Calderon MD 03/13/2022 [id number] / [id number] / [id number] Extension Dbs Nurostmltr Torque Neurosurgi N/A: N/A [employer] Wrench 38cm Stretch-Coil - allie NEUROMODUL [id number] - [id number] Implants ATION Implanted: Qty: 1 on 07/05/2018 [place] [id number] / / Neurostimulator Imp Activa Neurosurgi N/A: N/A [employer] 9.4x5.6x2.8cm Nrechrgbl For Dbs - allie NEUROMODUL [id number] Implants ATION Implanted: Qty: 1 on 07/05/2018 by Burak Calderon MD Procedures Comments Procedure Name Priority Date/Time Associated Diagnosis POC GLUCOSE Routine 04/05/2019 10:59 AM CDT POC GLUCOSE Routine 04/05/2019 6:47 AM CDT ESTIMATED GFR Routine 04/05/2019 5:16 AM CDT BASIC METABOLIC PANEL Routine 04/05/2019 5:16 AM CDT HC COMPLETE BLD COUNT Routine 04/05/2019 W/AUTO DIFF 5:16 AM CDT POC GLUCOSE Routine 04/04/2019 9:20 PM CDT POC GLUCOSE Routine 04/04/2019 4:03 PM CDT POC GLUCOSE Routine 04/04/2019 1:25 PM CDT AFB STAIN Timed 04/04/2019 1:05 PM CDT GRAM STAIN Timed 04/04/2019 1:05 PM CDT FUNGUS SMEAR Timed 04/04/2019 1:05 PM CDT AFB CULTURE Timed 04/04/2019 Abscess of skin 1:05 PM CDT AEROBIC CULTURE Timed 04/04/2019 Abscess of skin 1:05 PM CDT FUNGUS CULTURE Timed 04/04/2019 Abscess of skin 1:05 PM CDT ANAEROBIC CULTURE Timed 04/04/2019 Abscess of skin 1:05 PM CDT TN AN ELECTIVE Routine 04/04/2019 SUPRAGLOTTIC AIRWAY 1:00 PM CDT Procedure Note - Bárbara Rodriguez MD - 04/04/2019 1:00 PM CDT Airway Date/Time: 04/04/2019 12:45 PM Performed by: Bárbara Rodriguez MD Authorized by: Bárbara Rodriguez MD Location: OR Urgency: Elective Difficult Airway: No Anesthesio logist: Bárbara Rodriguez MD Performed by: anesthesio logist Preoxygena johnnie with 100% O2: Yes C-spine Precaution s Maintained Throughout : Yes Mask Ventilatio n: Not attempted Final Airway Type: Supraglott ic airway Final LMA: Mccall LMA Size: 4 Number of Attempts at Approach: 1 Atraumati c placement POC GLUCOSE Routine 04/04/2019 11:15 AM CDT POC GLUCOSE Routine 04/04/2019 6:42 AM CDT ESTIMATED GFR Routine 04/04/2019 4:39 AM CDT BASIC METABOLIC PANEL Routine 04/04/2019 4:39 AM CDT HC COMPLETE BLD COUNT Routine 04/04/2019 W/AUTO DIFF 4:39 AM CDT POC GLUCOSE Routine 04/03/2019 9:13 PM CDT POC GLUCOSE Routine 04/03/2019 8:38 PM CDT POC GLUCOSE Routine 04/03/2019 4:02 PM CDT POC GLUCOSE Routine 04/03/2019 11:10 AM CDT POC GLUCOSE Routine 04/03/2019 6:31 AM CDT VANCOMYCIN LEVEL, TROUGH Timed 04/03/2019 6:07 AM CDT ESTIMATED GFR Routine 04/03/2019 6:01 AM CDT HC COMPLETE BLD COUNT Routine 04/03/2019 W/AUTO DIFF 6:01 AM CDT BASIC METABOLIC PANEL Routine 04/03/2019 6:01 AM CDT POC GLUCOSE Routine 04/02/2019 8:57 PM CDT POC GLUCOSE Routine 04/02/2019 3:51 PM CDT POC GLUCOSE Routine 04/02/2019 1:32 PM CDT POC GLUCOSE Routine 04/02/2019 11:57 AM CDT POC GLUCOSE Routine 04/02/2019 11:37 AM CDT LACTIC ACID LEVEL, SEPSIS Timed 04/02/2019 - NOW AND REPEAT 2X EVERY 10:44 AM CDT 3 HOURS LACTIC ACID LEVEL, SEPSIS Timed 04/02/2019 - NOW AND REPEAT 2X EVERY 7:46 AM CDT 3 HOURS POC GLUCOSE Routine 04/02/2019 6:31 AM CDT ESTIMATED GFR Routine 04/02/2019 4:20 AM CDT HC COMPLETE BLD COUNT Routine 04/02/2019 W/AUTO DIFF 4:20 AM CDT COMPREHENSIVE METABOLIC Routine 04/02/2019 PANEL 4:20 AM CDT LACTIC ACID LEVEL, SEPSIS Timed 04/02/2019 - NOW AND REPEAT 2X EVERY 4:20 AM CDT 3 HOURS POC GLUCOSE Routine 04/01/2019 9:43 PM CDT POC GLUCOSE Routine 04/01/2019 5:06 PM CDT ANAEROBIC CULTURE Routine 04/01/2019 4:06 PM CDT GRAM STAIN Routine 04/01/2019 4:06 PM CDT AEROBIC CULTURE Routine 04/01/2019 4:06 PM CDT GRAM STAIN Routine 04/01/2019 2:18 PM CDT URINE CULTURE Routine 04/01/2019 2:18 PM CDT TN CRITICAL CARE, E/M Routine 04/01/2019 30-74 MINUTES 1:51 PM CDT TN I&D OF VULVA/PERINEUM Routine 04/01/2019 ABSCESS 1:51 PM CDT URINALYSIS SCREEN AND Routine 04/01/2019 MICROSCOPY, WITH REFLEX 1:33 PM CDT TO CULTURE ESTIMATED GFR STAT 04/01/2019 1:06 PM CDT COMPREHENSIVE METABOLIC STAT 04/01/2019 PANEL 1:06 PM CDT HC COMPLETE BLD COUNT STAT 04/01/2019 W/AUTO DIFF 1:06 PM CDT BLOOD CULTURE, AEROBIC & Routine 04/01/2019 ANAEROBIC 1:06 PM CDT BLOOD CULTURE, AEROBIC & Routine 04/01/2019 ANAEROBIC 1:00 PM CDT TN COMPLEX CRANIAL Routine 08/21/2018 Essential tremor NEUROSTIM,1ST HOUR 10:00 AM VINER OPERATOR TN COMPLEX CRANIAL Routine 07/23/2018 Tremor NEUROSTIM,1ST HOUR 8:20 AM CDT POC GLUCOSE Routine 07/05/2018 9:09 AM CDT TN AN ELECTIVE Routine 07/05/2018 ENDOTRACHEAL AIRWAY 8:02 AM CDT Procedure Note - Bre Guillen, [employer] COUNSELOR - 07/05/2018 8:02 AM CDT Airway Date/Time: [...] Routine 06/18/2018 Essential tremor 3:03 PM CDT after 05/02/2018 Results * POC glucose (04/05/2019 10:59 AM CDT) Only the most recent of 31 results within the time period is included. Pathologist [facility] POC glucose 340 (H) 65 - 100 mg/dL [place] Comment: SABIANIST Meter ID: [id number] [place] Specimen Preparation Assistant: [facility] Specimen Performing Organization Address City/[facility] Facility[facility] Phone Number [facility] DEPARTMENT OF [address] [place] [address] PATHOLOGY AND GENOMIC MEDICINE [address] * Estimated GFR (04/05/2019 5:16 AM CDT) Only the most recent of 5 results within the time period is included. [facility] Estimated GFR 42 (A) mL/min/1.73 m2 [place] Comment: SABIANIST [facility] G1 >=90 Normal or high G2 60-89Mildly decreased I5q20-14 Mildly to moderately decreased Z4j31-26 Moderately to severely decreased G4 15-29Severely decreased G5 <15Kidney failure The eGFR was calculated using the Chronic Kidney Disease Epidemiology Collaboration (CKD-EPI) equation. Interpretation is based on recommendations of the National Kidney Foundation-Kidney Disease Outcomes Quality Initiative (NKF-KDOQI) published in 2014. Specimen Plasma specimen Performing Organization Address City/State/Zipcode Phone Number [facility] DEPARTMENT OF [address] [place] [address] PATHOLOGY AND GENOMIC MEDICINE [facility] [address] * CBC with platelet and differential (04/05/2019 5:16 AM CDT) Only the most recent of 5 results within the time period is included. WBC 7.6 4.2 - 11.0 k/uL [facility] RBC 3.90 (L) 4.04 - 5.86 m/uL [facility] HGB 11.4 (L) 11.5 - 15.3 g/dL [facility] HCT 37.1 34.0 - 45.0 % [facility] MCV 95.1 80.0 - 98.0 fL [facility] MCH 29.2 27.0 - 34.0 pg [facility] MCHC 30.7 (L) 31.5 - 36.5 g/dL [facility] RDW - SD 42.0 37.0 - 51.0 fL [facility] MPV 12.4 (H) 7.4 - 10.4 fL [facility] Platelet count 153 150 - 400 k/uL [facility] Nucleated RBC 0.00 /100 WBC [facility] Neutrophils 62.3 36.0 - 66.0 % [facility] Lymphocytes 29.0 24.0 - 44.0 % [facility] Monocytes 6.2 (H) 0.0 - 6.0 % [facility] Eosinophils 1.7 0.0 - 6.0 % [facility] Basophils 0.3 0.0 - 1.2 % [facility] Immature 0.5 0.0 - 1.0 % [place] granulocytes [facility] Specimen Blood Performing Organization Address City/State/Zipcode Phone Number [facility] DEPARTMENT OF [address] [place] [address] PATHOLOGY AND GENOMIC MEDICINE [address] [place] [address] HOSPITAL * Basic metabolic panel (04/05/2019 5:16 AM CDT) Only the most recent of 3 results within the time period is included. Sodium 141 135 - 150 mEq/L [facility] Potassium 4.7 3.5 - 5.0 mEq/L [facility] Chloride 103 98 - 112 mEq/L [facility] CO2 27 24 - 31 mmol/L [facility] Anion gap 11@ANIO 7 - 15 mEq/L [facility] BUN 12 7 - 18 mg/dL [facility] Creatinine 1.40 (H) 0.50 - 0.90 mg/dL [facility] Glucose 354 (H) 65 - 100 mg/dL [facility] Calcium 9.2 8.3 - 10.2 mg/dL [facility] Specimen Plasma specimen Performing Organization Address City/[facility] Facilitycode Phone Number [facility] DEPARTMENT OF [address] [place] [address] PATHOLOGY AND GENOMIC MEDICINE [facility] [address] * Fungus smear (04/04/2019 1:05 PM CDT) Pathologist [facility] Fungus smear No fungi observed. [place] Comment: SABIANIST Specimen Information HOSPITAL Specimen Source: Drainage Specimen Site: Perineum Specimen Drainage - Perineum Performing Organization Address City/[facility]/Zipcode Phone Number [facility] DEPARTMENT OF [address] [place] [address] PATHOLOGY AND GENOMIC MEDICINE [address] * Aerobic culture (04/04/2019 1:05 PM CDT) Only the most recent of 2 results within the time period is included. Aerobic culture Enterococcus faecalis NG isolate [facility] SABIANIST susceptibility to [facility] HOSPITAL Enterococcus resistant to high levels of Gentamicin. Susceptibility results do not indicate synergy with Penicillins and Vancomycin. This organism is Vancomycin Sensitive. (A) Comment: Specimen Information Specimen Source: Drainage Specimen Site: Perineum Aerobic culture Diphtheroids (A) NG isolate [facility] Specimen Drainage - Perineum Antibiotic Method Susceptibility Organism Ampicillin MARY 1 mcg/mL: Susceptible Enterococcus faecalis Erythromycin MARY >4 mcg/mL: Resistant Enterococcus faecalis Gentamicin-Syn MARY >500 mcg/mL: Resistant Enterococcus faecalis Linezolid MARY <=1 mcg/mL: Susceptible Enterococcus faecalis Minocycline MARY >8 mcg/mL: Resistant Enterococcus faecalis Vancomycin MRAY 1 mcg/mL: Susceptible Enterococcus faecalis Performing Organization Address [facility] Phone Number [facility] DEPARTMENT OF [address] [place] [address] PATHOLOGY AND [facility] MEDICINE [place] SABIANIST [address] [place] [address] HOSPITAL * Gram stain (04/04/2019 1:05 PM CDT) Only the most recent of 3 results within the time period is included. Gram stain Rare WBC's NG isolate No organisms seen SABIANIST Comment: HOSPITAL Specimen Information Specimen Source: Drainage Specimen Site: Perineum Specimen Drainage - Perineum Performing Organization Address [facility] Phone Number [facility] [place] [address] PATHOLOGY AND [facility] [place]ICINE [place] [address] HOSPITAL * AFB stain (04/04/2019 1:05 PM CDT) AFB stain No acid fast bacilli (AFB) NG seen. SABIANIST Comment: HOSPITAL Specimen Information Specimen Source: Drainage Specimen Site: Perineum Specimen Drainage - Perineum Performing Organization Address [facility] Phone Number [facility] [place] [address] PATHOLOGY AND [facility] [place] [address] HOSPITAL * Fungus culture (04/04/2019 1:05 PM CDT) Fungus culture No growth after 4 weeks (A) NG isolate Comment: SABIANIST Specimen Information HOSPITAL Specimen Source: Drainage Specimen Site: Perineum Fungus culture Amended report-no organism [place] isolate identified (A) [facility] Specimen Drainage - Perineum Performing Organization Address [facility] Phone Number [facility] DEPARTMENT OF [address] [place] [address] PATHOLOGY AND [facility] MEDICINE [place] [address] HOSPITAL * Anaerobic culture (04/04/2019 1:05 PM CDT) Only the most recent of 2 results within the time period is included. Anaerobic Prevotella bivia (A) [place] culture isolate Comment: SABIANIST Specimen Information HOSPITAL Specimen Source: Drainage Specimen Site: Perineum Anaerobic Cutibacterium avidum (A) [place] culture isolate [facility] Specimen Drainage - Perineum Performing Organization Address City/State/Zipcode Phone Number [facility] DEPARTMENT OF [address] [place] [address] PATHOLOGY AND GENOMIC MEDICINE [address] [address] [facility] * Vancomycin level, trough (04/03/2019 6:07 AM CDT) [facility] Vancomycin, 22.0 (HH) 10.0 - 20.0 ug/mL [place] trough Comment: SABIANIST Therapeutic Ranges: [place] Peak30.0 HOSPITAL - 40.0 ug/mL Lvrkvs25.0 - 20.0 ug/mL Results called to and read back bY CHIVO FIGUEROA04/03/201906:42 [facility] Specimen Blood Performing Organization Address City/[facility] Facility[facility] Phone Number [facility] DEPARTMENT [address] [place] [address] PATHOLOGY AND GENOMIC MEDICINE [address] * Lactic acid level, SEPSIS - Now and repeat 2x every 3 hours (04/02/2019 10:44 AM CDT) Only the most recent of 3 results within the time period is included. [facility] Lactic acid 0.7 0.5 - 2.2 mmol/L [facility] Specimen Blood Performing Organization Address City/[facility] Phone Number [facility] DEPARTMENT [address] [place] [address] PATHOLOGY AND GENOMIC MEDICINE [address] * Comprehensive metabolic panel (04/02/2019 4:20 AM CDT) Only the most recent of 2 results within the time period is included. [facility] Sodium 145 135 - 150 mEq/L [facility] Potassium 5.2 (H) 3.5 - 5.0 mEq/L [facility] Chloride 110 98 - 112 mEq/L [facility] CO2 28 24 - 31 mmol/L [facility] Anion gap 7@ANIO 7 - 15 mEq/L [facility] BUN 13 7 - 18 mg/dL [facility] Creatinine 1.30 (H) 0.50 - 0.90 mg/dL [facility] Glucose 110 (H) 65 - 100 mg/dL [facility] Calcium 9.5 8.3 - 10.2 mg/dL [facility] Protein 6.2 (L) 6.3 - 8.3 g/dL [facility] Albumin 3.3 (L) 3.5 - 5.0 g/dL [facility] A/G ratio 1.1 0.7 - 3.8 [facility] Alkaline 96 0 - 104 U/L [place] phosphatase [facility] AST 24 10 - 35 U/L [facility] ALT 15 5 - 50 U/L [facility] Total bilirubin 0.3 0.2 - 1.2 mg/dL [facility] Specimen Plasma specimen Performing Organization Address [facility] Phone Number [facility] DEPARTMENT [address] [place] [address] PATHOLOGY AND GENOMIC MEDICINE [address] * Urine culture (04/01/2019 2:18 PM CDT) Urine culture Mixed chucky <=10-3 col/cc [place] isolate Comment: SABIANIST Specimen Information HOSPITAL Specimen Source: Urine Specimen Site: Clean catch Specimen Urine Performing Organization Address City/[facility] Phone Number [facility] [address] [place] [address] PATHOLOGY AND GENOMIC MEDICINE [address] [address] HOSPITAL * CRITICAL CARE (04/01/2019 1:51 PM CDT) Narrative Performed At Diya Yeung NP-C 04/03/20191:49 AM Critical Care Performed by: Diya Yeung NP-C Authorized by: West Ocasio MD Critical care provider statement: Critical care time (minutes):45 Critical care start time:04/01/2019 3:00 PM Critical care end time:04/01/2019 3:45 PM Critical care time was exclusive of:Separately billable procedures and treating other patients and teaching time Critical care was necessary to treat or prevent imminent or life-threatening deterioration of the following conditions:Sepsis Critical care was time spent personally by me on the following activities:Blood draw for specimens, development of treatment plan with patient or surrogate, discussions with consultants, discussions with primary provider, evaluation of patient's response to treatment, examination of patient, obtaining history from patient or surrogate, ordering and performing treatments and interventions, ordering and review of laboratory studies, ordering and review of radiographic studies, pulse oximetry and re-evaluation of patient's condition Arie 'yes' if you are taking over critical care for this patient from another provider.: no * I&D/Aspiration/Amputation (04/01/2019 1:51 PM CDT) Narrative Performed At Diya Yeung NP-C 04/03/20191:49 AM I&D/Aspiration/Amputation Performed by: Diya Yeung NP-C Authorized by: Diya Yeung NP-C Consent: Consent obtained:Verbal Consent given by:Patient Risks discussed:Bleeding, damage to other organs, incomplete drainage, infection and pain Location: Type:Abscess Location:Anogenital Anogenital location:[place] Pre-procedure details: Skin preparation:Betadine Anesthesia (see MAR for exact dosages): Anesthesia method:Local infiltration Local anesthetic:Lidocaine 2% w/o epi Procedure details: Complexity:Simple Needle aspiration: No Incision types:Excision Size (cm):2 Scalpel blade:11 Wound management:Irrigated with saline and probed and deloculated Drainage:Purulent and serosanguinous Drainage amount:Moderate Wound treatment:Drain placed Packing materials:/4 in gauze Amount 10/12":3 Post-procedure details: Patient tolerance of procedure:Tolerated well, no immediate complications * Urinalysis screen and microscopy, with reflex to culture (04/01/2019 1:33 PM CDT) Specimen site Clean catch [facility] Color, UA Yellow [facility] Appearance, UA Clear [facility] Specific 1.014 1.001 - 1.035 [place] gravity, UA [facility] pH, UA 5.0 5.0 - 8.5 [facility] Protein, UA Negative Negative [facility] Glucose, UA 1+ (A) Negative [facility] Ketones, UA Negative Negative [facility] Bilirubin, UA Negative Negative [facility] Blood, UA Negative Negative [facility] Nitrite, UA Negative Negative [facility] Urobilinogen, Negative <2.0 [facility] Leukocyte Trace (A) Negative [place] esterase, [facility] Epithelial Moderate /HPF [place] cells, [facility] WBC, UA 5 (A) 0 - 5 /HPF [facility] RBC, UA 1 0 - 5 /HPF [facility] Bacteria, UA Trace None seen [facility] Yeast, UA None seen [facility] Yeast with None seen [facility] Hyaline casts, 4 /LPF [facility] Specimen Urine Performing Organization Address City/State/Zipcode Phone Number [facility] DEPARTMENT OF [address] [place] [address] PATHOLOGY AND GENOMIC MEDICINE [address] * Blood culture, aerobic & anaerobic (04/01/2019 1:06 PM CDT) Only the most recent of 2 results within the time period is included. Blood culture No growth after 5 days of PILLOW isolate incubation. SABIANIST Comment: HOSPITAL Specimen Information Specimen Source: Blood Specimen Site: R Hand Specimen Blood Performing Organization Address City/State/Zipcode Phone Number [facility] DEPARTMENT [address] [place] [address] PATHOLOGY AND GENOMIC MEDICINE [address] * DBS Adjustment (08/21/2018 10:00 AM VINER OPERATOR) Narrative Performed At Jon Christiansen MD 08/21/20185:55 PM DBS Adjustment Date/Time: 08/21/2018 11:03 AM Performed by: Jon Christiansen MD Authorized by: Jon Christiansen MD Procedure details: The left brain is [...] 8:20 AM CDT) Narrative Performed At Jon Christiansen MD 07/23/20186:13 PM DBS Adjustment Date/Time: 07/23/2018 6:05 PM Performed by: JON CHRISTIANSEN Authorized by: JON CHRISTIANSEN Procedure details: The left brain is implanted [...] about the access review and recharging. * CT Head Wo Contrast (06/22/2018 2:47 AM CDT) Only the most recent of 2 results within the time period is included. Specimen Narrative Performed At EXAMINATION: CT HEAD WO [...] left deep brain stimulator. No acute abnormality. [facility]-[id number] Procedure Note Hm Interface, Radiology Results Incoming - 06/22/2018 2:58 [...] left deep brain stimulator. No acute abnormality. [facility]-[id number] Performing Organization Address [facility] Phone Number [facility] [address] [place] [address] * [place] > I Hour (06/21/2018 10:15 AM CDT) Specimen Narrative Performed At EXAMINATION:[place] 1 HOUR [facility] C-arm fluoroscopy was requested in OR. Location: [facility] 3 OR 10 Procedure: DEEP BRAIN STIMULATOR INS Start: 0830 End: 1015 Fluoro Time: 4SEC mGy: 45.7 Tech: JV SCANS:3 IMPRESSION: Separate operative report will be issued by the physician performing the procedure. [id number] Procedure Note Interface, Radiology Results Incoming - 06/21/2018 2:24 PM CDT EXAMINATION: [place] 1 HOUR C-arm fluoroscopy was requested in OR. Location: [facility] 3 OR 10 Procedure: DEEP BRAIN STIMULATOR INS Start: 0830 End: 1015 Fluoro Time: 4SEC mGy: 45.7 Tech: JV SCANS:3 IMPRESSION: Separate operative report will be issued by the physician performing the procedure. [id number] Performing Organization Address [facility] Phone Number [facility] [address] [place] [address] * MRI Brain W Wo Contrast (06/18/2018 3:03 PM CDT) Specimen Narrative Performed At [facility] EXAMINATION: MRI BRAIN [...] No focal abnormalities or abnormal enhancing lesions [id number] Procedure Note Hm Interface, Radiology Results Incoming - 06/18/2018 4:14 [...] No focal abnormalities or abnormal enhancing lesions [id number] Performing Organization Address City/State/Zipcode Phone Number [facility] [address] [place] [address] after 05/02/2018 Insurance Type Payer Benefit Subscriber ID Effective Phone Address Plan / Dates Group [facility] MEDICARE AARP xxxxxxxxx 2017-P MEDICARE resent COMPLETE [facility] Advance Directives Patient has advance care planning documents on file. For more information, acacia huber contact: Hernandez Gonzales [address] [place] [address]
[2019-05-03 07:45] VITALS: BP 133/67
== END | disposition home or self-care (01) ==
LOC: OR 05:30
PROVIDERS: ATTEND Internal Medicine Gastroenterology
DX: K44.9 Diaphragmatic hernia without obstruction or gangrene (principal); K21.0 Gastro-esophageal reflux disease with esophagitis; K29.70 Gastritis, unspecified, without bleeding; R10.13 Epigastric pain; R11.0 Nausea; E10.9 Type 1 diabetes mellitus without complications; Z71.3 Dietary counseling and surveillance; E66.9 Obesity, unspecified; Z68.33 Body mass index [BMI] 33.0-33.9, adult; Z79.4 Long term (current) use of insulin; Z88.2 Allergy status to sulfonamides; Z88.8 Allergy status to other drugs, medicaments and biological substances; F41.9 Anxiety disorder, unspecified; F17.210 Nicotine dependence, cigarettes, uncomplicated; J44.9 Chronic obstructive pulmonary disease, unspecified; Z01.810 Encounter for preprocedural cardiovascular examination; Z01.812 Encounter for preprocedural laboratory examination; Z01.811 Encounter for preprocedural respiratory examination
CPT/HCPCS: 36415 ×2; 43239; 71046; 82948; 85025; 88305; 88312; 93005; C1726; J2001; J2704; 43450

== ENCOUNTER 2020-05-14 15:43 | Observation (INO) | payer BC, OTHER ==
[~2020-05-14] VITALS: Ht 170.2 cm; Wt 112.5 kg
[~2020-05-14 15:43] MED LIST changes: -LIDOCAINE HCL 2% LOCAL INJ 5 ML SDV VIAL INJ ONE; -PROPOFOL IV EMULSION 10 MG/ML 20 ML VIAL ONE
[2020-05-14] MEDS ORDERED: ASPIRIN 81 MG CHEW TAB PO ONE (16:00)
[2020-05-14 16:15] LABS: BASOPHILS # (AUTO) 0.1 (0.0-0.1); BASOPHILS % 0.5 % (0.0-1.0); EOSINOPHILS # (AUTO) 0.2 (0.0-0.4); EOSINOPHILS % 1.4 % (0.0-6.0); HEMATOCRIT 43.6 % (34.2-44.1); HEMOGLOBIN 14.2 g/dL (12.0-16.0); LYMPHOCYTES # (AUTO) 3.9 (1.0-3.2); LYMPHOCYTES % 29.3 % (18.0-39.1); MEAN CORPUSCULAR HGB CONC 32.6 g/dL (31-35); MONOCYTES # (AUTO) 0.7 (0.2-0.8); NEUTROPHILS # (AUTO) 8.4 (2.1-6.9); NEUTROPHILS % 63.1 % (38.7-80.0); PLATELET COUNT 280 x10e3/uL (140-360); RED CELL DISTRIBUTION WIDTH 12.9 % (11.7-14.4)
[2020-05-14 16:30] LABS: INR 0.87; PARTIAL THROMBOPLASTIN TIME 27.8 seconds (23.8-35.5); PROTHROMBIN TIME 12.2 seconds (11.9-14.5)
[2020-05-14 16:43] LABS: ALBUMIN 3.3 g/dL (3.5-5.0); ALBUMIN/GLOBULIN RATIO 1.1 (0.8-2.0); ANION GAP 15.6 mmol/L (8-16); CALCIUM 9.2 mg/dL (8.4-10.2); CREATININE, SERUM 1.23 mg/dL (0.57-1.11); POTASSIUM 3.6 mmol/L (3.5-5.1)
[2020-05-14 16:53] LABS: CREATINE KINASE MB 4.1 ng/mL (0-5.0)
--- OUTSIDE RECORDS SUMMARY | 2020-05-14 16:53 | XMS REPORT | Clinical Summary ---
Author Author [facility] Address Unknown Phone Unavailable Care Team Providers Care Criminal Attorney Name Role Phone Ramon Koch MD PCP [...] 30 Take 1 pill 60 capsule 11 1 MG capsule Each day for 7 a month and then 2 pills Additional Information Patient taking differently: 60 mg oral nightly, Take 1 pill Each day for a month and then 2 pills, Reported on 06/20/2018 12:23 PM Active pantoprazole (PROTONIX) Take 40 mg by 0 40 MG EC tablet mouth daily. Active fenofibrate micronized Take 200 mg 0 (LOFIBRA) 200 MG capsule by mouth daily before breakfast. Active citalopram (CeleXA) 40 MG Take 40 mg by 0 tablet mouth daily. Active fluconazole (DIFLUCAN) TK 1 T PO QD 1 01 200 MG tablet 9 Active aspirin (ECOTRIN) 81 MG Take 81 mg by 0 enteric coated tablet mouth nightly. Active insulin ASPART (NovoLOG) Inject 20 0 100 unit/mL injection Units under the skin 3 (three) times a day before meals. Active Problems Problem Noted Date Abscess of right genital labia 04/01/2019 Essential tremor 06/21/2018 Persistent insomnia 08/04/2016 Insomnia disorder related to known organic factor Obstructive sleep apnea syndrome 08/04/2016 Spasmodic torticollis 08/04/2016 Neuropathy 08/04/2016 Tremor 08/04/2016 Encounters Care Team Description Date Type Specialty 05/11/2020 Travel 02/24/2020 Travel Ashish Little 06/11/2019 Telephone Neurology after 05/14/2019 Immunizations Name Administration Dates Next Due FLUCELVAX QUAD PF 06/22/2018 Family History Medical History Relation Name Comments Emphysema Father Brain cancer Mother Malignant neoplasm of brain Other Other No family history o f tremors Other Sister of AIDS Relation Name Status Comments Father old age (Age 75) Mother (Age 40) Other Sister Social History Date Tobacco Use Types Packs/Day Years Used Quit: 2014 Former Smoker Cigarettes 0.5 40 Smokeless Tobacco: Never Used Drinks/Week oz/Week Comments Alcohol Use rarely- beer No Sex Assigned at Date Recorded Not on file Industry Job Start Date Occupation Not on file Not on file Not on file Travel End Travel History Travel Start No recent travel history available. Date Recorded COVID-19 Exposure Response 05/11/2020 8:59 AM CDT In the last month, have you been in contact with No / Unsure someone who was confirmed or suspected to have Coronavirus / COVID-19? Last Filed Vital Signs Not on file Plan of Treatment Care Team Description Date Type Specialty Richard Christiansen MD [address] [facility] [address] [place] [id number] 07/07/2020 Office Visit Neurology Health Maintenance Due Date Last Done Comments CERVICAL CANCER SCREENING 1982 COLONOSCOPY SCREENING 2011 SHINGLES VACCINES (#1) 2011 BREAST CANCER SCREENING 03/21/2020 03/21/2018, 08/22/2016, 11/27/2014, Additional history exists INFLUENZA VACCINE 05/09/2020 06/22/2018 Implants Device Identifier Shelf Expiration Date Model / Serial / L ot Implanted Type Area Manufactur er 11/14/2020 [id number] / / [id number] Kit Lead Dbs Elctrd 1.5mm 40cm - Neurosurgi Left: Brain [employer] [id number] allie [place] - Implanted: Qty: 1 on 06/21/2018 by Implants KALEB Burak Gerard MD at [facility] 01/20/2019 [id number] / [id number] / [id number] Neurostimulator Imp Activa Neurosurgi N/A: N/A MED [employer]ONIC [id number] Rechrgbl For Dbs 1.6oz - allie KALEB ROMODUL [id number] - [id number] Implants ATION Implanted: Qty: 1 on 07/05/2018 by Burak Calderon MD at [facility] 03/13/2022 [id number] / [id number] / [id number] Extension Dbs Nurostmltr Torque Neurosurgi N/A: N/A [employer] Wrench 38cm Stretch-Coil - allie NEUROMODUL [id number] - [id number] Implants ATION Implanted: Qty: 1 on 07/05/2018 by Burak Calderon MD at [facility] [id number] / / Neurostimulator Imp Activa Neurosurgi N/A: N/A MED [employer]ONIC 9.4x5.6x2.8cm Nrechrgbl For Dbs - allie NEUR OMODUL [id number] Implants ATION Implanted: Qty: 1 on 07/05/2018 by Burak Calderon MD at [facility] Results Not on fileafter 05/14/2019 Insurance Type Payer Benefit Subscriber ID Effective Phone Address Plan / Dates Group PPO BCBS MEDICARE BLUE xxxxxxxxxxxx 2019-P MEDICARE resent ADVANTAGE PPO Advance Directives For more information, please contact: [phone] Patient Environmental Adviser Explanation Type Date Recorded Advance Directives, Living Will and Medical Power of Assembler Filters Advance Directives, 04/01/2019 1:14 PM Living Will and Medical Power of Assembler Filters
--- OUTSIDE RECORDS SUMMARY | 2020-05-14 16:54 | XMS REPORT | Continuity of Care Document ---
Author Author [facility] t Organization [facility] Address [address] [place] [address] Phone Unavailable Care Team Providers Care Jig Box Operator Name Role Phone NONSTAFF PCP Unavailable Ashish Little Attphys Unavailable OJEAS, S KARMEN Attphys Unavailable KATHY, TENA Attphys Unavailable KATHY, TENA Admphys Unavailable Payers Payer Name Policy Type Policy Number Effective Date Expiration Date S chip BCBS MEDICAREBLUE MEDICARE ADVANTAGE PPOxxxxxxxxxxxx2019 -PresentPPO xxxxxxxxxxxx 2019 00:00:00 Hernandez Gonzales [facility] Medicare Complete [id number] 2016 00:00:00 [facility] Problems Condition Name Condition Details Condition Category Status Onset Date Resolution Date Last Treatment Date Treating Clinician Comments Source Abscess of right genital labia Abscess of right genital labia Disea se Active 2019-04-01 00:00:00 Hernandez Gonzales Essential tremor Essential tremor Disease Active 2018-06-21 00:00:00 Hernandez Gonzales Persistent insomnia Persistent insomnia Disease Active 2016-08-04 00:00 :00 Hernandez Gonzales Insomnia disorder related to known organic factor Inso mnia disorder related to known organic factor Disease Active 2016-08-04 00:00:00 Hernandez Gonzales Obstructive sleep apnea syndrome Obstructive sleep apnea syndrom e Disease Active 2016-08-04 00:00:00 Amirah Gonzales Spasmodic torticollis Spasmodic torticollis Disease Active 201 03-18-27 00:00:00 Hernandez Doan t Neuropathy Neuropathy Disease Active 2016-08-04 00:00:00 Hernandez Gonzales Tremor Tremor Disease Active 2016-08-04 00:00:00 Hernandez Macdonaldist Abscess of abdominal wall Abscess of abdominal wall Problem Active [facility] Cellulitis Cellulitis Problem Active C [facility] Diabetes mellitus Diabetes mellitus Problem Active [facility] Poorly controlled diabetes mellitus Poorly controlled diabetes m ellitus Problem Active [facility] Allergies, Adverse Reactions, Alerts Allergy Name Allergy Type Status Severity Reaction(s) Onset Date Inacti ve Date Treating Clinician Comments Source cefotaxime sodium DA Active SV 2020-03-26 00:00:00 [facility] Sulfa (Sulfonamide Antibiotics) DA Active DC 2020-03-26 00 :00:00 [facility] codeine DA Active 2020-03-26 00:00:00 [facility] Sulfa (Sulfonamide Antibiotics) Allergy to Substance Active Sever e 2018-08-27 00:00:00 [facility] Codeine Allergy to Substance Active Severe 2018-08-27 00:00:00 [facility] Cefotaxime Allergy to Substance Active Severe 2018-08-27 00:00:00 [facility] Cefotaxime Propensity to adverse reactions to drug Active Anaphylaxis 2018-06-21 00:00:00 [facility] Other Propensity to adverse reactions Active Anaphyla xis 2018-06-20 00:00:00 "clarforin-antibiotic" [facility] cefotaxime sodium DA Active SV 2017-09-28 00:00:00 [facility] Sulfa (Sulfonamide Antibiotics) DA Active DC 2017-09-28 00 :00:00 [facility] codeine DA Active 2017-09-28 00:00:00 [facility] CLAFORIN Allergy to Substance Active Severe 2016-10-27 00:00:00 [facility] Sulfa (Sulfonamide Antibiotics) Propensity to adverse reactions to drug Active Rash 2016-08-04 00:00:00 Karishmafemi on [facility] Family History Family Member Diagnosis Comments Start Date Stop Date Source Natural father Emphysema [facility] Natural mother Brain cancer [facility] Other Other [facility] Natural sister Other [facility] Social History Social Habit Start Date Stop Date Quantity Comments Source History of tobacco use Current smoker Hernandez Gonzales Sex Assigned At [facility] Exposure to SARS-CoV-2 (event) Not sure Hernandez Gonzales Cigarettes smoked current (pack per day) - Reported 00:00:00 2019-04-05 00:00:00 Hernandez Gonzales Cigarette pack-years 2019-04-05 00:00:00 2019-04-05 00:00:00 Hernandez Gonzales Alcohol intake 2019-04-05 00:00:00 2019-04-05 00:00:00 Current non-drinker of alcohol (finding) Hernandez Gonzales Alcohol Comment 2018-06-20 00:00:00 2018-06-20 00:00:00 rarely- beer Hernandez Gonzales Smoking Status Start Date Stop Date Source Former smoker 2019-04-05 00:00:00 2019-04-05 00:00:00 Hernandez Gonzales Medications Ordered Medication Name Filled Medication Name Start Date Stop Da te Current Medication? Ordering Clinician Indication Dosage Frequency Signature (SIG) Comments Components Source levothyroxine (SYNTHROID, LEVOXYL) 200 mcg tablet 2019-04-05 15:30:01 Yes 200ug QD Take 200 mcg by mouth every morning. Hernandez Gonzales pravastatin (PRAVACHOL) 80 MG tablet 2019-04-05 15:30:01 Ye s 80mg QD Take 80 mg by mouth nightly. Hernandez rogers fexofenadine (PERNELL) 180 MG tablet 2019-04-05 15:30:01 Ye s 180mg QD Take 180 mg by mouth daily. Hernandez petersen budesonide (PULMICORT) 0.25 mg/2 mL nebulizer solution 2019-04-05 15:30:01 Yes .25mg Q.25D Take 0.25 mg by nebulization Every 4 hours while awake as needed (RT). Hernandez Gonzales albuterol (PROVENTIL) 2.5 mg /3 mL (0.083 %) nebulizer solut ion 2019-04-05 15:30:01 Yes 2.5mg Q6H Take 2.5 m g by nebulization every 6 (six) hours as needed for wheezing. Hernandez Gonzales pantoprazole (PROTONIX) 40 MG EC tablet 2019-04-05 15:30:01 Yes 40mg QD Take 40 mg by mouth daily. Hernandez ramirez fenofibrate micronized (LOFIBRA) 200 MG capsule 2019-04-05 15:30 :01 Yes 200mg QD Take 200 mg by mouth daily before breakfast. Hernandez Gonzales citalopram (CeleXA) 40 MG tablet 2019-04-05 15:30:01 Yes 40mg QD Take 40 mg by mouth daily. Hernandez Gonzales aspirin (ECOTRIN) 81 MG enteric coated tablet 2019-04-05 15:30:0 1 Yes 81mg QD Take 81 mg by mouth nightly. Hernandez Gonzales insulin ASPART (NovoLOG) 100 unit/mL injection 2019-04-05 15:30: 01 Yes 20U Q.[id number] Inject 20 Units under the sk in 3 (three) times a day before meals. Hernandez Gonzales fluconazole (DIFLUCAN) 200 MG tablet 2019-03-28 00:00:00 Ye s TK 1 T PO QD Hernandez Gonzales DULoxetine (CYMBALTA) 30 MG capsule 2017-08-15 00:00:00 Yes Take 1 pill Each day for a month and then 2 pills Hernandez Gonzales gabapentin (NEURONTIN) 300 mg capsule 2017-04-25 00:00:00 Yes 600mg Q.5D Take 2 capsules (600 mg total) by mouth 2 (two) times a day. Hernandez Gonzales HUMALOG KWIKPEN 100 unit/mL insulin pen 2016-08-17 00:00:00 Yes 20U Q.5D 20 Units 2 (two) times a day. Liam Gonzales LANTUS SOLOSTAR 100 unit/mL injection (pen) 2016-07-19 00:00:00 Yes 40U Q.5D 40 Units 2 (two) times a day. Liam Gonzales Albuterol Sulfate (Proair Hfa Inhaler*) 8.5 Gm Inh Alb uterol Sulfate (Proair Hfa Inhaler*) 8.5 Gm Inh Yes [facility] Aspirin (Aspirin Chew) 81 Mg Chew Aspirin (Aspirin Chew) 81 Mg Chew Yes 81 Pm [facility] Budesonide 0.5 Mg/2 Ml Ampul.neb Budesonide 0.5 Mg/2 Ml Ampul.neb Yes 2 As Needed [facility] Citalopram Hydrobromide (Celexa) 40 Mg Tablet Citalopr am Hydrobromide (Celexa) 40 Mg Tablet Yes 40 Daily [facility] Doxycycline Hyclate 100 Mg Capsule Doxycycline Hyclate 100 Mg Capsule Yes 100 Twice A Day [facility] Duloxetine Hcl (Cymbalta) 20 Mg Capcr Duloxetine Hcl (Cymbalta) 20 Mg Capcr Yes 20 Daily [facility] Fenofibrate Fenofibrate Yes 200 Daily [facility] Gabapentin 300 Mg Capsule Gabapentin 300 Mg Capsule Yes 300 Twice A Day [facility] Insulin Glargine (Lantus 3ML Pen) 100 Units/1 Ml Inj I nsulin Glargine (Lantus 3ML Pen) 100 Units/1 Ml Inj Yes 35 Twice A Da y [facility] Insulin Lispro (Humalog) 100 Unit/1 Ml Cartridge Insul in Lispro (Humalog) 100 Unit/1 Ml Cartridge Yes Three Times A Day [facility] Ipratropium [place] (Atrovent Hfa) 12.9 Gm Hfa.aer.ad Ipratropium [place] (Atrovent Hfa) 12.9 Gm Hfa.aer.ad Yes As N eeded [facility] Levothyroxine Sodium 200 Mcg Tablet Levothyroxine Sodium 200 Mcg Tabl et Yes 200 Daily [facility] Pantoprazole Sodium (Protonix) 40 Mg Tablet. Pantopr azole Sodium (Protonix) 40 Mg Tablet. Yes 40 Pm [facility] Pravastatin Sodium 80 Mg Tablet Pravastatin Sodium 80 Mg Tablet Yes 80 Pm [facility] Insulin Glargine (Lantus) 100 Units/Ml Ml, 40 Subcuta neously Insulin Glargine (Lantus) 100 Units/Ml Ml, 40 Subcutaneously 2018-08-31 00:00:00 No 40 Twice A Day [facility] Insulin Lispro (Humalog) 100 Unit/1 Ml Cartridge, 20 Subcutaneously Insulin Lispro (Humalog) 100 Unit/1 Ml Cartridge, 20 Subcutaneously 2018-08-31 00:00:00 No 20 After Meals And At Bedtime [facility] Ampicillin , 500 Mg Oral Ampicillin , 500 Mg Oral 2018-08-27 00: 00:00 No 500 Three Times A Day [facility] Furosemide 40 Mg Tablet, 40 Mg Oral Furosemide 40 Mg Tablet, 40 Mg Oral 2018-08-27 00:00:00 No 40 As Needed [facility] Levothyroxine Sodium 200 Mcg/Vial Inj, 150 Mcg Oral Le vothyroxine Sodium 200 Mcg/Vial Inj, 150 Mcg Oral 2018-08-27 00:00:00 No 150 Daily [facility] Naproxen 500 Mg Tablet, 500 Mg Oral Naproxen 500 Mg Tablet, 500 Mg Oral 2018-08-27 00:00:00 No 500 As Needed [facility] Topiramate 25 Mg Tablet, 100 Mg Oral Topiramate 25 Mg Tablet, 10 0 Mg Oral 2018-08-27 00:00:00 No 100 Twice A Day [facility] Levofloxacin (Levaquin) 500 Mg Tablet, 500 Mg Oral Lev ofloxacin (Levaquin) 500 Mg Tablet, 500 Mg Oral 2017-01-19 00:00:00 No 500 D aily [facility] Potassium Chloride 20 Meq Tab.er.prt, 80 Mg Oral Potas sium Chloride 20 Meq Tab.er.prt, 80 Mg Oral 2017-01-19 00:00:00 No 80 A s Needed [facility] Clindamycin Hcl 150 Mg Capsule, 300 Mg Oral Clindamyci n Hcl 150 Mg Capsule, 300 Mg Oral 2016-11-01 00:00:00 No 300 Three Times A Da y [facility] Immunizations Ordered Immunization Name Filled Immunization Name Date Status Comments Source FLUCELVAX QUAD PF 2018-06-22 00:00:00 Completed [facility] Procedures Procedure Date / Time Performed Performing Clinician [facility] e Incision and drainage 2018-08-28 00:00:00 MIGEL LOPEZ CH I [facility] Plan of Care Planned Activity Planned Date Details Comments Source Future Scheduled Test 2020-05-09 00:00:00 INFLUENZA VACCINE [code = INFLUENZA VACCINE] [facility] Future Scheduled Test 2020-03-21 00:00:00 BREAST CANCER SCRE ENING [code = BREAST CANCER SCREENING] [facility] Scheduled Test 2011 00:00:00 COLONOSCOPY SCREEN ING [code = COLONOSCOPY SCREENING] Hernandez Gonzales Scheduled Test 2011 00:00:00 SHINGLES VACCINES (#1) [code = SHINGLES VACCINES (#1)] Hernandez Gonzales Scheduled Test 1982 00:00:00 Screening for brenda gnant neoplasm of cervix (procedure) [code = 124250603] [facility] En[facility] Start Date/Time End Date/Time Encounter Type Admission Type [facility] Care Department Encounter ID Source 2018-08-27 14:01:00 2018-08-31 18:17:00 Discharged Inpatient 1 ESTRELLITA CHAVEZD [facility] [id number] [facility] Results Test Description Test Time Test Comments Results Result Comments Source - CT UP EXTREM W/CONT RT 2020-03-26 14:54:00 Pa tient Name: JOHN DAVID Unit No: [id number] EXAMS: CPT CODE: [id number] CT UP EXTREM W/[place] [address] CT SCAN OF THE RIGHT SHOULDER WITH INTRA- ARTICULAR CONTRAST AND RECONSTRUCTION DIAGNOSIS: 1. Mild degeneration of the glenohumeral joint. There is a minimally displaced posterior labral tear. There also appears to be a mild Bankhart lesion with a minimally displaced anterior inferior labral tear. 2. No evidence of rotator cuff tear. No evidence of rotator cuff muscle belly atrophy. COMMENT: COMPARISON: No prior exams available. TECHNIQUE: Volumetric CT data of the right shoulder was obtained without use of intravenous contrast. Images were then viewed in the axial, coronal and sagittal planes. CT radiation dose optimization is achieved for this examination by the use of a CT protocol in accordance with ACR practice standards and adherence to home health travel ot's recommendations. INDICATION: RIGHT SHOULDER POST ARTHROGRAM COMPARISON: None. COMMENT: Findings are as described above. RIGHT SHOULDER ARTHROGRAM COMMENT: After informed consent was obtained a 25- gauge needle is inserted into the RIGHT shoulder joint under fluoroscopic control using sterile technique. 6 mL of Isovue-300 is instilled into the joint. The patient tolerated the procedure well. 0.5 minutes of fluoroscopy time was used on this exam. Post arthrographic films show no extravasation of contrast outside the joint. at 1454 Reported and signed by: Saroj Encarnacion MD [facility] NAME: JOHN DAVID [address] [facility] PHYS: Cristóbal Mcneil MD : 1960 AGE: 59 SEX: F [place] [address] LOC: Y.RAD PHONE #: [phone] EXAM DATE: 03/26/2020 STATUS: REG CLI FAX #: [phone] RAD #: D/C DT PAGE 1 Signed Report (CONTINUED) Patient Name: JOHN DAVID Unit No: [id number] EXAMS: CPT CODE: [id number] CT UP EXTREM W/CONT RT <Continued> CC: Cristóbal Schmid MD Technologist: Oneal Sidhu,RT(R) CTDI: DLP: Trnscrpt: 03/26/2020 (3243) t.SDR.GVG [facility] NAME: JOHN DAVID [address] [facility] PHYS: Cristóbal Mcneil MD : 1960 AGE: 59 SEX: F [place] [address] LOC: Y.RAD PHONE #: [phone] EXAM DATE: 03/26/2020 ST ATUS: REG CLI FAX #: [phone] RAD #: D/C DT PAGE 2 Signed Report Patient Name: JOHN DAVID Unit No: [id number] EXAMS: CPT CODE: [id number] CT UP EXTREM W/CONT RT <Continued> Orig Print D/T: S: 03/26/2020 (6772) [facility] NAME: JOHN DAVID [address] [facility] PHYS: Cristóbal Mcneil MD : 1960 AGE: 59 SEX: F [place] [address] LOC: Y.RAD PHONE #: [phone] EXAM DATE: 03/26/2020 STATUS: REG CLI FAX #: [phone] RAD #: D/C DT PAGE 3 Signed Report - XR ARTHROGRAM SHLDR RT 2020-03-26 14:54:00 Pa tient Name: JOHN DAVID Unit No: [id number] EXAMS: CPT CODE: [id number] [address] [place] SCAN OF THE RIGHT SHOULDER WITH INTRA- ARTICULAR CONTRAST AND RECONSTRUCTION DIAGNOSIS: 1. Mild degeneration of the glenohumeral joint. There is a minimally displaced posterior labral tear. There also appears to be a mild Bankhart lesion with a minimally displaced anterior inferior labral tear. 2. No evidence of rotator cuff tear. No evidence of rotator cuff muscle belly atrophy. COMMENT: COMPARISON: No prior exams available. TECHNIQUE: Volumetric CT data of the right shoulder was obtained without use of intravenous contrast. Images were then viewed in the axial, coronal and sagittal planes. CT radiation dose optimization is achieved for this examination by the use of a CT protocol in accordance with ACR practice standards and adherence to home health travel ot's recommendations. INDICATION: RIGHT SHOULDER POST ARTHROGRAM COMPARISON: None. COMMENT: Findings are as described above. RIGHT SHOULDER ARTHROGRAM COMMENT: After informed consent was obtained a 25- gauge needle is inserted into the RIGHT shoulder joint under fluoroscopic control using sterile technique. 6 mL of Isovue-300 is instilled into the joint. The patient tolerated the procedure well. 0.5 minutes of fluoroscopy time was used on this exam. Post arthrographic films show no extravasation of contrast outside the joint. at 1454 Reported and signed by: Saroj Encarnacion MD [facility] NAME: JOHN DAVID [address] [facility] PHYS: Cristóbal Mcneil MD : 1960 AGE: 59 SEX: F [place], [place] [address] LOC: Y.RAD PHONE #: [phone] EXAM DATE: 03/26/2020 STATUS: REG CLI FAX #: [phone] RAD #: D/C DT PAGE 1 Signed Report (CONTINUED) Patient Name: JOHN DAVID Unit No: [id number] EXAMS: CPT CODE: [id number] [place] [address] <Continued> CC: Cristóbal Schmid MD Technologist: Chelly Michael, RT.(R) Transcribed D/ (4947) Mirlande.GVG [facility] NAME: JOHN DAVID [address] [facility] PHYS: Cristóbal Mcneil MD : 1960 AGE: 59 SEX: F [place] [address] LOC: Y.RAD PHONE #: [phone] EXAM DATE: 03/26/2020 STATUS: REG CLI FAX #: [phone] RAD #: D/C DT PAGE 2 Signed Report Patient Name: JOHN DAVID Unit No: [id number] EXAMS: CPT CODE: [id number] [place] [address] <Continued> Orig Print D/T: S: 03/26/2020 (0322) [facility] NAME: JOHN DAVID [address] [facility] PHYS: Cristóbal Mcneil MD : 1960 AGE: 59 SEX: F [place] [address] LOC: Y.RAD PHONE #: [phone] EXAM DATE: 03/26/2020 STATUS: REG CLI FAX #: [phone] RAD #: D/C DT PAGE 3 Signed Report CHEST 2 VIEWS 2019-04-30 13:41:00 [place] [address] Patient Name: JOHN DAVID MR #: [id number] : 1960 Age/Sex: 58/F Req #: [id number] Adm Physician: Ordered by: KARMEN PELLETIER MD Report #: [id number] Location: OR Room/Bed: Procedure: [id number] DX/CHEST 2 VIEWS Exam Date: 04/30/19 Exam Time: 1245 REPORT STATUS: Signed EXAMINATION: CHEST 2 VIEWS INDICATION: Pre-operative, shortness of breath COMPARISON: Multiple prior chest [...] on 04/30/2019 1:44 PM Dictated By: DAVID VEGA MD 1344 Transcribed By: KRIS on 04/30/19 1344 COPY TO: KARMEN PELLETIER MD GASTRIC EMPTYING 2019-03-25 14:56:00 [place] [address] Patient Name: JOHN DAVID MR #: [id number] : 1960 Age/Sex: 58/F Req #: [id number] Adm Physician: Ordered by: KARMEN PELLETIER MD Report #: [id number] Location: [place] Room/Bed: Procedure: [id number] NM/GASTRIC EMPTYING Exam Date: Exam Time: REPORT STATUS: Signed Solid-phase gastric emptying study Reason for examination: Epigastric pain and nausea The protocol used for this study is based on the Consensus Recommendations for Gastric Scintigraphy by the [place] [employer] and the Society [...] on 03/25/191457 COPY TO: KARMEN PELLETIER MD Vancomycin Level Trough 2018-08-31 12:51:00 Test Item Vancomycin Level Trough (test code = 4092-3) 4.7 5.0-10.0 L [facility] [id number] 21:27:00* Test Item Value Reference Range Interpretation Comments Bedside Glucose (test code = 45087-5) 373 70-120 H Meter ID: [id number] LINE ARCKCHEIS3371-73-69 15:09:00 [place] [address] Patient Name: JOHN DAVID MR #: [id number] : 1960 Age/Sex: 57/F Req #: [id number] Adm Physician: MALLIKA CHAVEZ MD Ordered by: MARTÍN SIEGEL MD Report #: [id number] Location: MED/SURG2 Room/Bed: [facility] Procedure: [id number] DX /CHEST XRAY LINE PLACEMENT Exam Date: 08/30/18 Exam Time: 1455 REPORT STATUS: Signed Examination: Single AP view of the chest. COMPARISON: Chest AP 08/30/2018 INDICATION: PICC line placement IMPRESSION: 1. Lines and Tu bes: Right-sided PICC line with distal tip projecting at the cavoatrial juncti on. 2. Otherwise no interval change. Signed by: Willam Kirby on 08/30/2018 3:10 PM Dictated By: ELIAZAR KNOWLES MD Electronically S igned By: LEIAZAR KNOWLES MD on 08/30/18 1510 Transcribed By: KRIS on 8 1510 COPY TO: MARTÍN SIEGEL MD CHEST XRAY LINE PLACEMENT 2018-08-30 14:47:00 [place] [address] Patient Name: JOHN DAVID MR #: [id number] : 1960 Age/Sex: 57/F Req #: [id number] Adm Physician: MALLIKA CHAVEZ MD Ordered by: MARTÍN SIEGEL MD Report #: [id number] Location: MED/SURG2 Room/Bed: [facility] Procedure: [id number] DX /CHEST XRAY LINE PLACEMENT Exam Date: 08/30/18 Exam Time: 1439 REPORT STATUS: Signed Examination: Single AP view of the chest. COMPARISON: Portable chest 08/30 INDICATION: PICC line placement IMPRESSION: 1. Lines and Tubes: Interval placement of right-sided PICC line, which has its distal t ip projecting in the right atrium. Recommend retraction of approximately 2.5 c m 2. Otherwise no interval change. Signed by: Dr. Eliazar Knowles M.D. on 08/30/2018 2:48 PM Dictated By: ELIAZAR KNOWLES MD Electronically Sig deirdre By: ELIAZAR KNOWLES MD on 08/30/18 1448 Transcribed By: KRIS on 08/30/18 1448 COPY TO: MARTÍN SIEGEL MD Blood [id number] 12:25:00* Test Item Value Reference Range Interpretation Comments Blood Culture (test code = 98774296) NO GROWTH AFTER 72 HOURS [facility]TSH[facility] 2018-08-30 06:46:00* Test Item Value Reference Range Interpretation Comments Thyroid Stimulating Hormone (TSH) (test code = 49590-4) 48.196 0.350-4.940 H [facility] ([facility])2018-08-30 06:29:00 [place] [address] Patient Name: JOHN DAVID MR #: [id number] : 1960 Age/Sex: 57/F Req #: [id number] Adm Physician: MALLIKA CHAVEZ MD Ordered by: MALLIKA CHAVEZ MD Report #: [id number] Location: MED/SURG2 Room/Bed: [facility] Procedure: [id number] DX/CHEST SINGLE (PORTABLE) Exam Date: 08/30/18 Exam Time: 534 REPORT STATUS: Signed EXAMINATION: CHEST SINGLE (PORTABLE) INDICATION: Shortness of breath COMPARISON: None FINDINGS: AP view TUBES and LINES: None. LUNGS: Lungs are well inflated. Lungs are clear. There is no evidence of pneumonia or pulmonary edema. PLEURA: No pleural effusion or pneumothorax. HEART AND MEDIASTINUM: The cardiomediastinal silhouette is unremarkable. BONES AND SOFT TISSUES: No acute osseous lesion. Batter y pack projects over the left chest with lead extending superiorly over the le ft neck, out of the field of view UPPER ABDOMEN: No free air under the di aphragm. IMPRESSION: No acute thoracic abnormality. Signed b y: DR. Jonnie Donovan MD on 08/30/2018 6:30 AM Dictated By: JONNIE DONOVAN MD 9 Transcribed By: KRIS on 08/30/18629 COPY TO: MALLIKA CHAVEZ MD Sodium Level 2018-08-30 05:42:00* Test Item Value Reference Range Interpretation Comments Sodium Level (test code = 2951-2) 139 136-145 [facility] [id number] 05:42:00* Test Item Value Reference Range Interpretation Comments Potassium Level (test code = 2823-3) 4.0 3.5-5.1 [facility]loride [id number] 05:42:00* Test Item Value Reference Range Interpretation Comments Chloride Level (test code = 2075-0) 106 98-107 [facility] SouthCarbon Dioxide [id number] 05:42:00* Test Item Value Reference Range Interpretation Comments Carbon Dioxide Level (test code = 2028-9) 24 [facility] SouthAnion [id number] 05:42:00* Test Item Value Reference Range Interpretation Comments Anion Gap (test code = 91193-0) 13.0 8-16 [facility] Urea [id number] 05:42:00* Test Item Value Reference Range Interpretation Comments Blood Urea Nitrogen (test code = 3094-0) 14 7-26 [facility]Creatinine2018-11-22 05:42:00* Test Item Value Reference Range Interpretation Comments Creatinine (test code = 2160-0) 1.18 0.57-1.11 H [facility]/Creatinine [id number] 05:42:00* Test Item Value Reference Range Interpretation Comments BUN/Creatinine Ratio (test code = 3097-3) 12 04-02 [facility] Glomerular Filtration Rate 2018-08-30 05:42:00* Test Item Value Reference Range Interpretation Comments Estimat Glomerular Filtration Rate (test code = [id number]) 47 >60 L Ranges were taken from the National Kidney Disease Education Program and the [facility] literature.Reference ranges:60 or greater: [id number] ( for 3 consecutive months): Chronic kidney disease 15 or less: Kidney failure[facility] SouthGlucose Bqwsz8687-46-73 05:42:00* Test Item Value Reference Range Interpretation Comments Glucose Level (test code = ENH7224) 269 74-118 H [facility] SouthCalcium Nxbid6301-29-44 05:42:00* Test Item Value Reference Range Interpretation Comments Calcium Level (test code = 93893-1) 9.1 8.4-10.2 [facility] SouthWhite Blood Smguy9943-53-51 05:18:00* Test Item Value Reference Range Interpretation Comments White Blood Count (test code = 6690-2) 9.77 4.8-10.8 [facility] SouthRed Blood Mmaoj5833-78-43 05:18:00* Test Item Value Reference Range Interpretation Comments Red Blood Count (test code = 789-8) 4.08 3.6-5.1 [facility] SouthHemoglobin2018-11-22 05:18:00* Test Item Value Reference Range Interpretation Comments Hemoglobin (test code = 64995-6) 12.4 12.0-16.0 [facility] SouthHematocrit2018-11-22 05:18:00* Test Item Value Reference Range Interpretation Comments Hematocrit (test code = 4544-3) 37.5 34.2-44.1 [facility] SouthMean Corpuscular Qzfhws5402-31-86 05:18:00* Test Item Value Reference Range Interpretation Comments Mean Corpuscular Volume (test code = 787-2) 91.9 81-99 [facility] SouthMean Corpuscular Ctopiujkwg0743-47-93 05:18:00* Test Item Value Reference Range Interpretation Comments Mean Corpuscular Hemoglobin (test code = 785-6) 30.4 28-32 [facility] SouthMean Corpuscular Hemoglobin Concent 2018-08-30 05:18:00* Test Item Value Reference Range Interpretation Comments Mean Corpuscular Hemoglobin Concent (test code = 786-4) 33.1 31-35 [facility] SouthRed Cell Distribution Jkjit2083-95-73 05:18:00* Test Item Value Reference Range Interpretation Comments Red Cell Distribution Width (test code = 09383-5) 13.1 11.7 -14.4 [facility] SouthPlatelet Lvsal5553-97-68 05:18:00* Test Item Value Reference Range Interpretation Comments Platelet Count (test code = 777-3) 272 140-360 [facility] SouthNeutrophils (%) (Auto)2018-08-30 05:18:00 * Test Item Value Reference Range Interpretation Comments Neutrophils (%) (Auto) (test code = 84189-6) 58.7 38.7-80.0 [facility] SouthLymphocytes (%) (Auto)2018-08-30 05:18:00 * Test Item Value Reference Range Interpretation Comments Lymphocytes (%) (Auto) (test code = 736-9) 33.2 18.0-39.1 [facility] SouthMonocytes (%) (Auto)2018-08-30 05:18:00* Test Item Value Reference Range Interpretation Comments Monocytes (%) (Auto) (test code = 5905-5) 5.1 4.4-11.3 [facility] SouthEosinophils (%) (Auto)2018-08-30 05:18:00 * Test Item Value Reference Range Interpretation Comments Eosinophils (%) (Auto) (test code = 713-8) 1.8 0.0-6.0 [facility] SouthBasophils (%) (Auto)2018-08-30 05:18:00* Test Item Value Reference Range Interpretation Comments Basophils (%) (Auto) (test code = 706-2) 0.5 0.0-1.0 [facility] SouthIM GRANULOCYTES %2018-08-30 05:18:00* Test Item Value Reference Range Interpretation Comments IM GRANULOCYTES % (test code = IM GRANULOCYTES %) 0.7 0.0- 1.0 [facility] SouthNeutrophils # (Auto)2018-08-30 05:18:00* Test Item Value Reference Range Interpretation Comments Neutrophils # (Auto) (test code = 751-8) 5.7 2.1-6.9 [facility] SouthLymphocytes # (Auto)2018-08-30 05:18:00* Test Item Value Reference Range Interpretation Comments Lymphocytes # (Auto) (test code = 84482-6) 3.2 1.0-3.2 [facility] SouthMonocytes # (Auto)2018-08-30 05:18:00* Test Item Value Reference Range Interpretation Comments Monocytes # (Auto) (test code = 742-7) 0.5 0.2-0.8 [facility] SouthEosinophils # (Auto)2018-08-30 05:18:00* Test Item Value Reference Range Interpretation Comments Eosinophils # (Auto) (test code = 711-2) 0.2 0.0-0.4 [facility] SouthBasophils # (Auto)2018-08-30 05:18:00* Test Item Value Reference Range Interpretation Comments Basophils # (Auto) (test code = 704-7) 0.1 0.0-0.1 [facility] SouthAbsolute Immature Granulocyte (auto 2018-08-30 05:18:00* Test Item Value Reference Range Interpretation Comments Absolute Immature Granulocyte (auto (denise t code = Absolute Immature Granulocyte (auto) 0.07 0-0.1 [facility] SouthFree Gbilvczyu4535-23-11 14:08:00* Test Item Value Reference Range Interpretation Comments Free Thyroxine (test code = 3024-7) 0.63 0.9-1.8 L [facility] SouthHemoglobin A1c Wqyfotd2345-47-63 13:47:00 * Test Item Value Reference Range Interpretation Comments Hemoglobin A1c Percent (test code = Hemoglobin A1c Percent) 9.8 4.0-7.0 H [facility] SouthRandom Vancomycin Bxsig1215-83-47 08:44:00* Test Item Value Reference Range Interpretation Comments Random Vancomycin Level (test code = 48387-5) 3.4 [facility] SouthUrine [id number] 14:36:00* Test Item Value Reference Range Interpretation Comments Urine WBC (test code = 5821-4) 11-20 0-5 H [facility] SouthUrine [id number] 14:36:00* Test Item Value Reference Range Interpretation Comments Urine RBC (test code = 96316-1) 0-5 0-5 [facility] SouthUrine Ntvtplup4643-97-72 14:36:00* Test Item Value Reference Range Interpretation Comments Urine Bacteria (test code = 30209-6) FEW NONE [facility] SouthUrine Epithelial Rdxlw5175-50-44 14:36:00 * Test Item Value Reference Range Interpretation Comments Urine Epithelial Cells (test code = 78830-4) MODERATE NONE [facility] SouthUrine Renal Epithelial Mbwaw4990-06-51 14:36:00* Test Item Value Reference Range Interpretation Comments Urine Renal Epithelial Cells (test code = 25765-0) FEW NON E H [facility] SouthUrine Demjo1297-33-82 14:36:00* Test Item Value Reference Range Interpretation Comments Urine Mucus (test code = 8247-9) FEW RARE H [facility] SouthUrine Xixat1985-14-18 14:28:00* Test Item Value Reference Range Interpretation Comments Urine Color (test code = 5778-6) YELLOW YELLOW [facility] SouthUrine Jllmdap7794-90-76 14:28:00* Test Item Value Reference Range Interpretation Comments Urine Clarity (test code = 10524-3) CLEAR CLEAR [facility] SouthUrine Specific Xcgsmku1294-62-02 14:28:00 * Test Item Value Reference Range Interpretation Comments Urine Specific [place] (test code = 5811-5) 1.015 1.010-1.02 5 [facility] SouthUrine [id number] 14:28:00* Test Item Value Reference Range Interpretation Comments Urine pH (test code = 82210-2) 6.5 5-7 [facility] Leukocyte Ohkpyetz8962-85-14 14:28:00* Test Item Value Reference Range Interpretation Comments Urine Leukocyte Esterase (test code = 5799-2) 1+ NEGATIVE H [facility] Ycxqlip5011-10-41 14:28:00* Test Item Value Reference Range Interpretation Comments Urine Nitrite (test code = 33115-4) NEGATIVE NEGATIVE [facility] SouthUrine Lzjdbso9381-91-14 14:28:00* Test Item Value Reference Range Interpretation Comments Urine Protein (test code = 5804-0) NEGATIVE NEGATIVE [facility] SouthUrine Glucose (UA)2018-08-27 14:28:00* Test Item Value Reference Range Interpretation Comments Urine Glucose (UA) (test code = 2349-9) 3+ NEGATIVE H [facility] SouthUrine Nmzqccc9066-79-80 14:28:00* Test Item Value Reference Range Interpretation Comments Urine Ketones (test code = 40181-9) NEGATIVE NEGATIVE [facility] SouthUrine Pdtlczcbgbvw2156-72-40 14:28:00* Test Item Value Reference Range Interpretation Comments Urine Urobilinogen (test code = 67067-8) 0.2 0.2-1 [facility] SouthUrine Nyywlsvdz7808-93-05 14:28:00* Test Item Value Reference Range Interpretation Comments Urine Bilirubin (test code = 1977-6) NEGATIVE NEGATIVE [facility] SouthUrine [id number] 14:28:00* Test Item Value Reference Range Interpretation Comments Urine Blood (test code = 61324-6) NEGATIVE NEGATIVE [facility] SouthMagnesium Mwzob5469-09-16 12:55:00* Test Item Value Reference Range Interpretation Comments Magnesium Level (test code = 01551-6) 1.8 1.3-2.1 [facility] SouthTotal Bhseguqfp1619-03-36 12:55:00* Test Item Value Reference Range Interpretation Comments Total Bilirubin (test code = 1974-2) 0.4 0.2-1.2 [facility] SouthAspartate Amino Transf (AST/SGOT) 2018-08-27 12:55:00* Test Item Value Reference Range Interpretation Comments Aspartate Amino Transf (AST/SGOT) (test code = Aspartate Amino Transf (AST/SGOT)) 21 5-34 [facility] SouthAlanine Aminotransferase (ALT/SGPT) 2018-08-27 12:55:00* Test Item Value Reference Range Interpretation Comments Alanine Aminotransferase (ALT/SGPT) (test code = 1742-6) 11 0-55 [facility] SouthTotal Fhcisaw3220-38-09 12:55:00* Test Item Value Reference Range Interpretation Comments Total Protein (test code = 2885-2) 6.8 6.5-8.1 [facility] SouthAlbumin2018-11-19 12:55:00* Test Item Value Reference Range Interpretation Comments Albumin (test code = 1751-7) 3.2 3.5-5.0 L [facility] SouthGlobulin2018-11-19 12:55:00* Test Item Value Reference Range Interpretation Comments Globulin (test code = 15392-0) 3.6 2.3-3.5 H [facility] SouthAlbumin/Globulin Alndu1818-40-14 12:55:00 * Test Item Value Reference Range Interpretation Comments Albumin/Globulin Ratio (test code = 1759-0) 0.9 0.8-2.0 [facility] SouthAlkaline Tvxxontxpno0991-56-04 12:55:00* Test Item Value Reference Range Interpretation Comments Alkaline Phosphatase (test code = 6768-6) 109 40-150 [facility] SouthLactic Acid Kjhoo9855-70-72 12:48:00* Test Item Value Reference Range Interpretation Comments Lactic Acid Level (test code = Lactic Acid Level) 10.6 4.5- 19.8 [facility]
--- NOTE | 2020-05-14 17:28 | Emergency Department Note ---
History of Present Illnes History of Present Illness Chief Complaint: COVID PUI History of Present Illness This is a 59 year old female arrived to the ED with complaints of a cough and generalized malaise. Historian: Patient Arrival Mode: Car Onset (how long ago): day(s) Severity: mild Duration (how long): day(s) Progression: worsening Chronicity: new Context: Reports recent illness Relieving factors: none Past Medical/Family History Physician Review I have reviewed the patient's past medical and family history. Any updates have been documented here. Past Medical History Recent Fever: No Clinical Suspicion of Infectio: No New/Unexplained Change in Ment: No Past Medical History: Diabetes, COPD, Hypothyroidism Other Medical History: NEUROPATHY TREMORS Past Surgical History: Appendectomy, Tubal Ligation Other Surgery: SX BILATERAL HANDS SX BILATERAL FEET VNS Review of Systems Review of Systems Constitutional: Reports as per HPI, Reports malaise, Reports weakness EENTM: Reports no symptoms Cardiovascular: Reports no symptoms Respiratory: Reports as per HPI, Reports chest congestion, Reports cough Gastrointestinal: Reports no symptoms Genitourinary: Reports no symptoms Musculoskeletal: Reports no symptoms Integumentary: Reports no symptoms Neurological: Reports no symptoms Psychological: Reports no symptoms Endocrine: Reports no symptoms Hematological/Lymphatic: Reports no symptoms Physical Exam Related Data Allergies: Coded Allergies: Sulfa (Sulfonamide Antibiotics) (Verified Allergy, Severe, 08/27/18) cefotaxime (Verified Allergy, Severe, 08/27/18) Uncoded Allergies: CLAFORIN (Allergy, Severe, 10/27/16) Triage Vital Signs Vital Signs Date Time Temp Pulse Resp B/P (MAP) Pulse Ox O2 Delivery O2 Flow Rate FiO2 05/14/20 15:56 98.9 90 14 115/67 97 Room Air Vital signs reviewed: Yes Physical Exam CONSTITUTIONAL Constitutional: Present well-developed, Present well-nourished HENT HENT: Present normocephalic, Present atraumatic, Present oropharynx clear/moist, Present nose normal HENT L/R: Present left ext ear normal, Present right ext ear normal EYES Eyes: Reports PERRL, Reports conjunctivae normal NECK Neck: Present ROM normal PULMONARY Pulmonary: Present effort normal, Present breath sounds normal CARDIOVASCULAR Cardiovascular: Present regular rhythm, Present heart sounds normal, Present capillary refill normal, Present normal rate GASTROINTESTINAL Abdominal: Present soft, Present nontender, Present bowel sounds normal GENITOURINARY Genitourinary: Present exam deferred SKIN Skin: Present warm, Present dry MUSCULOSKELETAL Musculoskeletal: Present ROM normal NEUROLOGICAL Neurological: Present alert, Present oriented x 3, Present no gross motor or sensory deficits PSYCHOLOGICAL Psychological: Present mood/affect normal, Present judgement normal Results Laboratory Result Diagram: 05/14/20 1552 05/14/20 1552 Laboratory Laboratory Tests Test 05/14/20 15:52 White Blood Count 13.25 x10e3/uL (4.8-10.8) Red Blood Count 4.90 x10e6/uL (3.6-5.1) Hemoglobin 14.2 g/dL (12.0-16.0) Hematocrit 43.6 % (34.2-44.1) Mean Corpuscular Volume 89.0 fL (81-99) Mean Corpuscular Hemoglobin 29.0 pg (28-32) Mean Corpuscular Hemoglobin Concent 32.6 g/dL (31-35) Red Cell Distribution Width 12.9 % (11.7-14.4) Platelet Count 280 x10e3/uL (140-360) Neutrophils (%) (Auto) 63.1 % (38.7-80.0) Lymphocytes (%) (Auto) 29.3 % (18.0-39.1) Monocytes (%) (Auto) 5.0 % (4.4-11.3) Eosinophils (%) (Auto) 1.4 % (0.0-6.0) Basophils (%) (Auto) 0.5 % (0.0-1.0) Neutrophils # (Auto) 8.4 (2.1-6.9) Lymphocytes # (Auto) 3.9 (1.0-3.2) Monocytes # (Auto) 0.7 (0.2-0.8) Eosinophils # (Auto) 0.2 (0.0-0.4) Basophils # (Auto) 0.1 (0.0-0.1) Absolute Immature Granulocyte (auto 0.09 x10e3/uL (0-0.1) Prothrombin Time 12.2 seconds (11.9-14.5) Prothromb Time International Ratio 0.87 Activated Partial Thromboplast Time 27.8 seconds (23.8-35.5) Sodium Level 142 mmol/L (136-145) Potassium Level 3.6 mmol/L (3.5-5.1) Chloride Level 108 mmol/L (98-107) Carbon Dioxide Level 22 mmol/L (22-29) Anion Gap 15.6 mmol/L (8-16) Blood Urea Nitrogen 14 mg/dL (7-26) Creatinine 1.23 mg/dL (0.57-1.11) Estimat Glomerular Filtration Rate 45 ML/MIN (60-) BUN/Creatinine Ratio 11 (6-25) Glucose Level 234 mg/dL (74-118) Calcium Level 9.2 mg/dL (8.4-10.2) Total Bilirubin 0.3 mg/dL (0.2-1.2) Aspartate Amino Transf (AST/SGOT) 22 IU/L (5-34) Alanine Aminotransferase (ALT/SGPT) 20 IU/L (0-55) Alkaline Phosphatase 95 IU/L (40-150) Creatine Kinase 199 IU/L (29-168) Creatine Kinase MB 4.10 ng/mL (0-5.0) Troponin I 0.012 ng/mL (0-0.300) Total Protein 6.2 g/dL (6.5-8.1) Albumin 3.3 g/dL (3.5-5.0) Globulin 2.9 g/dL (2.3-3.5) Albumin/Globulin Ratio 1.1 (0.8-2.0) Lab results reviewed: Yes Imaging Imaging results reviewed: Yes Assessment & Plan Medical Decision Making MDM 59-year-old well-appearing male arrives to the ED with complaints of cough fever loss of taste and smell. Patient is clinically presenting with signs and sym ptoms consistent with Covid 19. Patient informed he is positive until proven otherwise. Patient's oxygen saturation remained 99% even on exertion, no evidence of tachypnea or dyspnea noted in the ED. Pt received a chest x-ray and covid-19 swab. Pt did not meet criteria for hospital admission and this was discussed. Pt is not having any signs or symptoms of respiratory distress and not requiring supplemental O2. Pt was discharged on Decadron and z-pack. Pt has a strong support system as an outpatient and discharge home with made with joint clinical decision making. Pt understands he is at high risk of morbidity and mortality given his age and co-morbidiites. Pt understands he is welcome to return to the ED at anytime for worsening symptoms. Spoke present length about the importance of sleeping on his stomach and rotating from side to side. Z-Stew given, signs and symptoms for return discussed. Assessment & Plan Final Impression: (1) COVID-19 Depart Disposition: HOME, SELF-CARE Last Vital Signs Date Time Temp Pulse Resp B/P (MAP) Pulse Ox O2 Delivery O2 Flow Rate FiO2 05/14/20 15:56 98.9 90 14 115/67 97 Room Air Home Meds Active Scripts Azithromycin (Z-STEW) 250 Mg Tablet, 500 MG PO Q24H for 3 Days, #1 PKT 0 Refills Prov:KRISTYN VALLE [employer]ENT 05/15/20 Prednisone (PREDNISONE) 20 Mg Tab, 40 MG PO DAILY, #5 TAB Prov:SUE MCPHERSON, DO 05/14/20 Albuterol Sulf* (PROAIR HFA INHALER*) 8.5 Gm Inh, 1 PUMP INH Q6HR PRN for SHORTNESS OF BREATH, #1 Prov:SUE MCPHERSON, DO 05/14/20 Reported Medications Topiramate (TOPIRAMATE) 100 Mg Tablet, 100 MG PO DAILY, #30 TAB 04/30/19 Insulin Lispro (HUMALOG) 100 Unit/1 Ml Cartridge, 20-25 SC TID 08/31/18 Insulin Glargine (LANTUS 3ML PEN) 100 Units/1 Ml Inj, 40 SC BID 08/31/18 Duloxetine Hcl (CYMBALTA) 20 Mg Capcr, 30 MG PO DAILY, #30 CAP 08/27/18 Levothyroxine Sodium (LEVOTHYROXINE SODIUM) 200 Mcg Tablet, 200 MCG PO DAILY 08/27/18 Budesonide (BUDESONIDE) 0.5 Mg/2 Ml Ampul.neb, 2 ML NEB PRN, EACH 01/17/17 Ipratropium [place] (ATROVENT HFA) 12.9 Gm Hfa.aer.ad, INH PRN 01/17/17 Citalopram Hydrobromide (CELEXA) 40 Mg Tablet, 40 MG PO DAILY 01/17/17 [Fenofibrate] No Conflict Check, 200 MG PO DAILY 01/17/17 Gabapentin (GABAPENTIN) 300 Mg Capsule, 300 MG PO BID, #60 CAP 10/28/16 Pantoprazole Sodium* (PROTONIX) 40 Mg Tablet.dr, 40 MG PO pm, TAB 10/28/16 Pravastatin Sodium (PRAVASTATIN SODIUM) 80 Mg Tablet, 80 MG PO pm THERAPEUTICALLY SUBSTITUTED WITH SIMVASTATIN 40MG 10/28/16 Aspirin (ASPIRIN CHEW) 81 Mg Chew, 81 MG PO pm, #30 TAB 10/28/16 Medications in the ED Aspirin 81 mg PRN ONCE PO ; Start 05/14/20 at 16:00; Stop 05/14/20 at 16:16; Status DC SUE MCPHERSON, May 14, 2020 17:28
--- NOTE | 2020-05-14 17:52 | Diagnostic Imaging Report ---
Examination: Single AP view of the chest. COMPARISON: None. INDICATION: Malignant neoplasm DISCUSSION: Lines/tubes: Partially visualized stimulator overlying the left chest. Lungs: The lungs are well inflated and clear. No pneumonia or pulmonary edema. Pleura: No pleural effusion or pneumothorax. Heart and mediastinum: The heart and the mediastinum are unremarkable. Bones and soft tissues: No acute bony abnormalities. IMPRESSION: 1. No acute cardiopulmonary abnormalities. Signed by: Dr. Mathew Wilkinson M.D. on 05/14/2020 5:48 PM
[2020-05-14] MEDS ORDERED: PROAIR HFA INH8.5 GM INH (18:21)
[2020-05-14] MEDS ORDERED: PREDNISONE20 MG PO (18:21)
[2020-05-14] MEDS ORDERED: CEFTRIAXONE SOD 1 GM VIAL IV SCH (18:30)
--- OUTSIDE RECORDS SUMMARY | 2020-05-14 18:48 | XMS REPORT | Clinical Summary ---
Author Author [facility] Address Unknown Phone Unavailable Care Team Providers Care Hat Cleaner Name Role Phone Ramon Koch MD PCP [...] Description Date Type Specialty Richard Christiansen MD [address] [facility] [address] [place] [id number] 07/07/2020 Office Visit Neurology Health Maintenance Due Date Last Done Comments CERVICAL CANCER SCREENING 1982 COLONOSCOPY SCREENING 2011 SHINGLES VACCINES (#1) 2011 BREAST CANCER SCREENING 03/21/2020 03/21/2018, 08/22/2016, 11/27/2014, Additional history exists INFLUENZA VACCINE 05/09/2020 06/22/2018 Implants Device Identifier Shelf Expiration Date Model / Serial / L ot Implanted Type Area Manufactur er 11/14/2020 [id number] / / [id number] Kit Lead Dbs Elctrd 1.5mm 40cm - Neurosurgi Left: Brain [employer] [id number] allie [place] - Implanted: Qty: 1 on 06/21/2018 by Implants KALEB Burak Gerard MD at [facility] 01/20/2019 [id number] / [id number] / [id number] Neurostimulator Imp Activa Neurosurgi N/A: N/A [employer] [id number] Rechrgbl For Dbs 1.6oz - allie KALEB ROMODUL [id number] - [id number] Implants ATION Implanted: Qty: 1 on 07/05/2018 by Burak Calderon MD at [facility] 03/13/2022 [id number] / [id number] / [id number] Extension Dbs Nurostmltr Torque Neurosurgi N/A: N/A [employer] Wrench 38cm Stretch-Coil - allie NEUROMODUL [id number] - [id number] Implants ATION Implanted: Qty: 1 on 07/05/2018 by Burak Calderon MD at [facility] [id number] / / Neurostimulator Imp Activa Neurosurgi N/A: N/A [employer] 9.4x5.6x2.8cm Nrechrgbl For Dbs - allie NEUR OMODUL [id number] Implants ATION Implanted: Qty: 1 on 07/05/2018 by Burak Calderon MD at [facility] Results Not on fileafter 05/14/2019 Insurance Type Payer Benefit Subscriber ID Effective Phone Address Plan / Dates Group PPO BCBS MEDICARE BLUE xxxxxxxxxxxx [id number] MEDICARE resent ADVANTAGE PPO Advance Directives For more information, please contact: [phone] Patient Impregnator Electrolytic Capacitors Explanation Type Date Recorded Advance Directives, Living Will and Medical Power of White Work Cleaner Advance Directives, 04/01/2019 1:14 PM Living Will and Medical Power of White Work Cleaner
--- OUTSIDE RECORDS SUMMARY | 2020-05-14 18:48 | XMS REPORT | Continuity of Care Document ---
Author Author [facility] t Organization [facility] Address [address] [place] [address] Phone Unavailable Care Team Providers Care Mud Worker Name Role Phone NONSTAFF PCP Unavailable David MCPHERSON Attphys Unavailable Anabel, Hinojosa Attphys Unavailable OJEAS, S KARMEN Attphys Unavailable KATHY, TENA Attphys Unavailable KATHY, TENA Admphys Unavailable Payers Payer Name Policy Type Policy Number Effective Date Expiration Date S ourpeter BCBS MEDICAREBLUE MEDICARE ADVANTAGE PPOxxxxxxxxxxx2019 -PresentPPO xxxxxxxxxxxx 2019 00:00:00 Hernandez Gonzales [employer] Medicare Complete [id number] 2016 00:00:00 [facility] Problems Condition Name Condition Details Condition Category [...] Tremor Tremor Disease Active 2016-08-04 00:00:00 Hernandez Gonzales Abscess of abdominal wall Abscess of abdominal wall Problem Active [facility] Cellulitis Cellulitis Problem Active [facility] Diabetes mellitus Diabetes mellitus Problem Active [facility] Poorly controlled diabetes mellitus Poorly controlled diabetes m ellitus Problem Active [facility] Allergies, Adverse Reactions, Alerts Allergy Name Allergy Type Status Severity Reaction(s) Onset Date Inacti ve Date Treating Clinician Comments Source cefotaxime sodium DA Active SV 2020-03-26 00:00:00 [facility] Sulfa (Sulfonamide Antibiotics) DA Active SD 2020-03-26 00 :00:00 [facility] codeine DA Active 2020-03-26 00:00:00 [facility] Sulfa (Sulfonamide Antibiotics) Allergy to Substance Active Sever e 2018-08-27 00:00:00 [facility] Codeine Allergy to Substance Active Severe 2018-08-27 00:00:00 [facility] Cefotaxime Allergy to Substance Active Severe 2018-08-27 00:00:00 [facility] Cefotaxime Propensity to adverse reactions to drug Active Anaphylaxis 2018-06-21 00:00:00 Ng Meth odist Other Propensity to adverse reactions Active Anaphyla xis 2018-06-20 00:00:00 "clarforin-antibiotic" Hernandez Gonzales cefotaxime sodium DA Active 2017-09-28 00:00:00 [facility] Sulfa (Sulfonamide Antibiotics) DA Active SD 2017-09-28 00 :00:00 [facility] codeine DA Active 2017-09-28 00:00:00 [facility] CLAFORIN Allergy to Substance Active Severe 2016-10-27 00:00:00 [facility] Sulfa (Sulfonamide Antibiotics) Propensity to adverse reactions to drug Active Rash 2016-08-04 00:00:00 Amirah on [facility] Family History Family Member Diagnosis Comments Start Date Stop Date Source Natural father Emphysema [place] [facility] Natural mother Brain cancer Ng [facility] Other Other [place] [facility] Natural sister Other [facility] Social History Social Habit Start Date Stop Date Quantity Comments Source History of tobacco use Current smoker Hernandez Gonzales Sex Assigned At [place] krishnan [facility] Exposure to SARS-CoV-2 (event) Not sure Ng [facility] Cigarettes smoked current (pack per day) - [...] unit/mL injection 2019-04-05 15:30: 01 Yes 20U [id number] Inject 20 Units under the sk in 3 (three) times a day before meals. eHrnandez Gonzales fluconazole (DIFLUCAN) 200 MG tablet 2019-03-28 [...] (Proair Hfa Inhaler*) 8.5 Gm Inh Yes [facility] Aspirin (Aspirin Chew) 81 Mg Chew Aspirin (Aspirin Chew) 81 Mg Chew Yes 81 Pm [facility] Budesonide 0.5 Mg/2 Ml Ampul.neb Budesonide 0.5 Mg/2 Ml Ampul.neb Yes 2 As Needed [facility] Citalopram Hydrobromide (Celexa) 40 Mg Tablet Citalopr am Hydrobromide (Celexa) 40 Mg Tablet Yes 40 Daily [facility] Doxycycline Hyclate 100 Mg Capsule Doxycycline Hyclate 100 Mg Capsule Yes 100 Twice A Day [facility] Duloxetine Hcl (Cymbalta) 20 Mg Capcr Duloxetine Hcl (Cymbalta) 20 Mg Capcr Yes 20 Daily [facility] Fenofibrate Fenofibrate Yes 200 Daily [facility] Gabapentin 300 Mg Capsule Gabapentin 300 Mg Capsule Yes 300 Twice A Day [facility] Insulin Glargine (Lantus 3ML Pen) 100 Units/1 Ml Inj I nsulin Glargine (Lantus 3ML Pen) 100 Units/1 Ml Inj Yes 35 Twice A Da y [facility] Insulin Lispro (Humalog) 100 Unit/1 Ml Cartridge Insul in Lispro (Humalog) 100 Unit/1 Ml Cartridge Yes Three Times A Day [facility] Ipratropium Wake (Atrovent Hfa) 12.9 Gm Hfa.aer.ad Ipratropium Wake (Atrovent Hfa) 12.9 Gm Hfa.aer.ad Yes As N eeded [facility] Levothyroxine Sodium 200 Mcg Tablet Levothyroxine Sodium 200 Mcg Tabl et Yes 200 Daily [facility] Pantoprazole Sodium (Protonix) 40 Mg Tablet. Pantopr azole Sodium (Protonix) 40 Mg Tablet. Yes 40 Pm [facility] Pravastatin Sodium 80 Mg Tablet Pravastatin Sodium 80 Mg Tablet Yes 80 Pm [facility] Insulin Glargine (Lantus) 100 Units/Ml Ml, 40 Subcuta neously Insulin Glargine (Lantus) 100 Units/Ml Ml, 40 Subcutaneously 2018-08-31 00:00:00 No 40 Twice A Day [facility] Insulin Lispro (Humalog) 100 Unit/1 Ml Cartridge, 20 Subcutaneously Insulin Lispro (Humalog) 100 Unit/1 Ml Cartridge, 20 Subcutaneously 2018-08-31 00:00:00 No 20 After Meals And At Bedtime [facility] Ampicillin , 500 Mg Oral Ampicillin , 500 Mg Oral 2018-08-27 00: 00:00 No 500 Three Times A Day [facility] Furosemide 40 Mg Tablet, 40 Mg Oral Furosemide 40 Mg Tablet, 40 Mg Oral 2018-08-27 00:00:00 No 40 As Needed [facility] Levothyroxine Sodium 200 Mcg/Vial Inj, 150 Mcg Oral Le vothyroxine Sodium 200 Mcg/Vial Inj, 150 Mcg Oral 2018-08-27 00:00:00 No 150 Daily [facility] Naproxen 500 Mg Tablet, 500 Mg Oral Naproxen 500 Mg Tablet, 500 Mg Oral 2018-08-27 00:00:00 No 500 As Needed [facility] Topiramate 25 Mg Tablet, 100 Mg Oral Topiramate 25 Mg Tablet, 10 0 Mg Oral 2018-08-27 00:00:00 No 100 Twice A Day [facility] Levofloxacin (Levaquin) 500 Mg Tablet, 500 Mg Oral Lev ofloxacin (Levaquin) 500 Mg Tablet, 500 Mg Oral 2017-01-19 00:00:00 No 500 D aily [facility] Potassium Chloride 20 Meq Tab.er.prt, 80 Mg Oral Potas sium Chloride 20 Meq Tab.er.prt, 80 Mg Oral 2017-01-19 00:00:00 No 80 A s Needed [facility] Clindamycin Hcl 150 Mg Capsule, 300 Mg Oral Clindamyci n Hcl 150 Mg Capsule, 300 Mg Oral 2016-11-01 00:00:00 No 300 Three Times A Da y [facility] Immunizations Ordered Immunization Name Filled Immunization Name Date Status Comments Source FLUCELVAX QUAD PF 2018-06-22 00:00:00 Completed Hernandez Gonzales Procedures Procedure Date / Time Performed Performing Clinician Sour e Incision and drainage 2018-08-28 00:00:00 MIGEL LOPEZ CH, I [facility] Plan of Care Planned Activity Planned Date Details Comments Source Future Scheduled Test 2020-05-09 00:00:00 INFLUENZA VACCINE [code = INFLUENZA VACCINE] Hernandez Gonzales Future Scheduled Test 2020-03-21 00:00:00 BREAST CANCER SCRE ENING [code = BREAST CANCER SCREENING] [place] [facility] Future Scheduled Test 2011 00:00:00 COLONOSCOPY SCREEN ING [code = COLONOSCOPY SCREENING] [facility] Future Scheduled Test 2011 00:00:00 SHINGLES VACCINES (#1) [code = SHINGLES VACCINES (#1)] [place] [facility] Future Scheduled Test 1982 00:00:00 Screening for brenda gnant neoplasm of cervix (procedure) [code = 364836164] [place] Renaeis Encounters Start Date/Time End Date/Time Encounter Type Admission Type [facility] Care Department Encounter ID Source 2018-08-27 14:01:00 2018-08-31 18:17:00 Discharged Inpatient 1 MALLIKA CHAVEZ [facility] [id number] [facility] Results Test Description Test Time Test Comments Results Result Comments Source CHEST SINGLE (PORTABLE) 2020-05-14 17:47:00 [facility] [address] [address] Patient Name: JOHN DAVID MR #: [id number] : 1960 Age/Sex: 59/F Req #: [id number] Adm Physician: Ordered by: SUE MCPHERSON DO Report #: [id number] Location: ER Room/Bed: Procedure: [id number] DX/CHEST SINGLE (PORTABLE) Exam Date: 05/14/20 Exam Time: 1730 REPORT STATUS: Signed Examination: Single AP view of the chest. COMPARISON: None. INDICATION: Malignant neoplasm DISCUSSION: Lines/tubes: Partially visualized stimulator overlying the left chest. Lungs: The lungs are well inflated and clear. No pneumonia or pulmonary edema. Pleura: No pleural effusion or pneumothorax. Heart and mediastinum: The heart and the mediastinum are unremarkable. Bones and soft tissues: No acute bony abnormalities. IMPRESSION: 1. No acute cardiopulmonary abnormalities. Signed by: Dr. Teena Miranda M.D. on 05/14/2020 5:48 PM Dictated By: TEENA MIRANDA MD 47 Transcribed By: KRIS on 05/14/201747 COPY TO: SUE MCPHERSON DO - CT UP EXTREM W/CONT RT 2020-03-26 14:54:00 César tient Name: JOHN DAVID Unit No: [id number] EXAMS: CPT CODE: [id number] CT UP EXTREM W/[place] [address] CT SCAN OF THE RIGHT SHOULDER WITH [...] with ACR practice standards and adherence to medical housekeeper's recommendations. INDICATION: RIGHT SHOULDER POST ARTHROGRAM COMPARISON: [...] Reported and signed by: Saroj Encarnacion MD [facility] NAME: JOHN DAVID [address] [facility] PHYS: Cristóbal Mcneil MD : 1960 AGE: 59 SEX: F [place], [place] [address] LOC: Y.RAD PHONE #: [phone] EXAM DATE: 03/26/2020 STATUS: REG CLI FAX #: [phone] RAD #: D/C DT PAGE 1 Signed Report (CONTINUED) Patient Name: JOHN DAVID Unit No: [id number] EXAMS: CPT CODE: [id number] CT UP EXTREM W/CONT RT <Continued> CC: Cristóbal Schmid MD Technologist: Oneal Sidhu,RT(R) CTDI: DLP: Trnscrpt: 03/26/2020 (3729) t.SDR.GVG [facility] NAME: JOHN DAVID [address] [facility] PHYS: Cristóbal Mcneil MD : 1960 AGE: 59 SEX: [place] [address] LOC: Y.RAD PHONE #: [phone] EXAM DATE: 03/26/2020 ST ATUS: REG CLI FAX #: [phone] RAD #: D/C DT PAGE 2 Signed Report Patient Name: JOHN DAVID Unit No: [id number] EXAMS: CPT CODE: [id number] CT UP EXTREM W/CONT RT <Continued> Orig Print D/T: S: 03/26/2020 (3572) [facility] NAME: JOHN DAVID [address] [facility] PHYS: Cristóbal Mcneil MD : 1960 AGE: 59 SEX: [place] [address] LOC: Y.RAD PHONE #: [phone] EXAM DATE: 03/26/2020 STATUS: REG CLI FAX #: [phone] RAD #: D/C DT PAGE 3 Signed Report - XR ARTHROGRAM SHLDR RT 2020-03-26 14:54:00 Pa tient Name: JOHN DAVID Unit No: [id number] EXAMS: CPT CODE: [id number] [address] [place] SCAN OF THE RIGHT SHOULDER WITH [...] with ACR practice standards and adherence to medical housekeeper's recommendations. INDICATION: RIGHT SHOULDER POST ARTHROGRAM COMPARISON: [...] extravasation of contrast outside the joint. at 6104 Reported and signed by: Saroj Encarnacion MD [facility] NAME: JOHN DAVID [address] [place] [address] PHYS: Cristóbal Mcneil MD : 1960 AGE: 59 SEX: [place] [address] LOC: Y.RAD PHONE #: [phone] EXAM DATE: 03/26/2020 STATUS: REG CLI FAX #: [phone] RAD #: D/C DT PAGE 1 Signed Report (CONTINUED) Patient Name: JOHN DAVID Unit No: [id number] EXAMS: CPT CODE: [id number] [address] <Continued> CC: Cristóbal Schmid MD Technologist: Chelly Rodriguez RT.(R) Transcribed D/ (8774) t.LISSETTR.GVG [facility] NAME: JOHN DAVID [address] [facility] PHYS: Cristóbal Mcneil MD : 1960 AGE: 59 SEX: [place] [address] LOC: MindaRAD PHONE #: [phone] EXAM DATE: 03/26/2020 STATUS: REG CLI FAX #: [phone] RAD #: D/C DT PAGE 2 Signed Report Patient Name: JOHN DAVID Unit No: [id number] EXAMS: CPT CODE: [id number] [place] [address] <Continued> Orig Print D/T: S: 03/26/2020 (1457) [facility] NAME: JOHN DAVID [address] [facility] PHYS: Cristóbal Mcneil MD : 1960 AGE: 59 SEX: F [place], [place] [address] LOC: MindaRAD PHONE #: [phone] EXAM DATE: 03/26/2020 STATUS: REG CLI FAX #: [phone] RAD #: D/C DT PAGE 3 Signed Report CHEST 2 VIEWS 2019-04-30 13:41:[address] [place] [address] Patient Name: JOHN DAVID MR #: [id number] : 1960 Age/Sex: 58/F Req #: [id number] Adm Physician: Ordered by: KARMEN PELLETIER MD Report #: [id number] Location: OR Room/Bed: Procedure: [id number] DX/CHEST 2 VIEWS Exam Date: 04/30/19 Exam [...] KARMEN PELLETIER MD GASTRIC EMPTYING 2019-03-25 14:56:00 [place] [address] Patient Name: JOHN DAVID MR #: [id number] : 1960 Age/Sex: 58/F Req #: [id number] Adm Physician: Ordered by: KARMEN PELLETIER MD Report #: [id number] Location: [place] Room/Bed: Procedure: [id number] NM/GASTRIC EMPTYING Exam Date: Exam Time: REPORT STATUS: Signed Solid-phase gastric emptying study Reason for examination: Epigastric pain and nausea The protocol used for this study is based on the Consensus Recommendations for Gastric Scintigraphy by the [employer] Society and the Society [...] 4092-3) 4.7 5.0-10.0 L [facility] Dttjiue8313-16-12 21:27:00* Test Item Value Reference Range Interpretation Comments Bedside Glucose (test code = 47635-8) 373 70-120 H Meter ID: [id number] XRAY LINE CXYFKNRDR5350-29-05 15:09:00 [place] [address] Patient Name: JOHN DAVID MR #: [id number] : 1960 Age/Sex: 57/F Req #: [id number] Adm Physician: MALLIKA CHAVEZ MD Ordered by: MARTÍN SIEGEL MD Report #: [id number] Location: MED/SURG2 Room/Bed: 213 Procedure: [id number] DX /CHEST XRAY LINE PLACEMENT Exam Date: 08/30/18 Exam Time: 5 REPORT STATUS: Signed Examination: Single AP view of the chest. COMPARISON: Chest AP 08/30/2018 INDICATION: PICC line placement IMPRESSION: 1. Lines and Tu bes: Right-sided PICC line with distal tip projecting at the cavoatrial juncti on. 2. Otherwise no interval change. Signed by: Willam Kirby on 08/30/2018 3:10 PM Dictated By: ELIAZAR KNOWLES MD Electronically S igned By: ELIAZAR KNOWLES MD on 08/30/18 1510 Transcribed By: KRIS on 8 1510 COPY TO: MARTÍN SIEGEL MD CHEST XRAY LINE PLACEMENT 2018-08-30 14:47:00 [place] [address] Patient Name: JOHN DAVID MR #: [id number] : 1960 Age/Sex: 57/F Req #: [id number] [facility] Physician: MALLIKA CHAVEZ MD Ordered by: MARTÍN SIEGEL MD Report #: [id number] Location: MED/SURG2 Room/Bed: 213 Procedure: [id number] DX /CHEST XRAY LINE PLACEMENT Exam Date: [...] Sig deirdre By: ELIAZAR KNOWLES MD on 08/30/181447 Transcribed By: KRIS on 08/30/188 COPY TO: MARTÍN SIEGEL MD Blood Qcgvwjb0511-79-82 12:25:00* Test Item Value Reference Range Interpretation Comments Blood Culture (test code = 96492496) NO GROWTH AFTER 72 HOURS [facility]yroid Stimulating Hormone (TSH) 2018-08-30 06:46:00* Test Item Value Reference Range Interpretation Comments Thyroid Stimulating Hormone (TSH) (test code = 98827-6) 48.196 0.350-4.940 H [facility]ST SING[facility] (PORTABLE)2018-08-30 06:29:[address] [place] [address] Patient Name: JOHN DAVID MR #: [id number] : 1960 Age/Sex: 57/F Req #: [id number] Adm Physician: MALLIKA CHAVEZ MD Ordered by: MALLIKA CHAVEZ MD Report #: [id number] Location: MED/SURG2 Room/Bed: [facility] Procedure: [id number] DX/CHEST SINGLE (PORTABLE) Exam Date: 08/30/18 Exam [...] Level (test code = 2951-2) 139 136-145 [facility]Potassium Tynxp7702-73-21 05:42:00* Test Item Value Reference Range Interpretation Comments Potassium Level (test code = 2823-3) 4.0 3.5-5.1 [facility]Chloride Evzvr9151-63-22 05:42:00* Test Item Value Reference Range Interpretation Comments Chloride Level (test code = 2075-0) 106 98-107 [facility]entonCarbon Dioxide Eezza1787-21-54 05:42:00* Test Item Value Reference Range Interpretation Comments Carbon Dioxide Level (test code = 2028-9) 24 22-29 [facility]entonAnion Efq6524-90-54 05:42:00* Test Item Value Reference Range Interpretation Comments Anion Gap (test code = 18843-2) 13.0 8-16 [facility]entonBlood Urea Wgdvgoym5765-75-79 05:42:00* Test Item Value Reference Range Interpretation Comments Blood Urea Nitrogen (test code = 3094-0) 14 7-26 [facility]entonCreatinine2018-11-22 05:42:00* Test Item Value Reference Range Interpretation Comments Creatinine (test code = 2160-0) 1.18 0.57-1.11 H [facility]entonBUN/Creatinine Dvdvf7624-13-07 05:42:00* Test Item Value Reference Range Interpretation Comments BUN/Creatinine Ratio (test code = 3097-3) 12 6- [facility] DentonEstimat Glomerular Filtration Rate 2018-08-30 05:42:00* Test Item Value Reference Range Interpretation Comments Estimat Glomerular Filtration Rate (test code = 471212061) 47 >60 L Ranges were taken from the National Kidney Disease Education Program and the [facility] Kidney Foundation literature.Reference ranges:60 or greater: Glrvvq83-66 ( for 3 consecutive months): Chronic kidney disease 15 or less: Kidney failureBaylor Scott and White the Heart Hospital – DentonGlucose Hpkjh6797-67-16 05:42:00* Test Item Value Reference Range Interpretation Comments Glucose Level (test code = EAO1013) 269 74-118 H [facility]entonCalcium Hvtwq6159-61-31 05:42:00* Test Item Value Reference Range Interpretation Comments Calcium Level (test code = 49491-2) 9.1 8.4-10.2 [facility]entonWhite Blood Hrzxz7283-64-61 05:18:00* Test Item Value Reference Range Interpretation Comments White Blood Count (test code = 6690-2) 9.77 4.8-10.8 [facility] DentonRed Blood Rwvsg9102-99-28 05:18:00* Test Item Value Reference Range Interpretation Comments Red Blood Count (test code = 789-8) 4.08 3.6-5.1 [facility]entonHemoglobin2018-11-22 05:18:00* Test Item Value Reference Range Interpretation Comments Hemoglobin (test code = 28041-8) 12.4 12.0-16.0 [facility]entonHematocrit2018-11-22 05:18:00* Test Item Value Reference Range Interpretation Comments Hematocrit (test code = 4544-3) 37.5 34.2-44.1 [facility] DentonMean Corpuscular Qnthzm2437-39-95 05:18:00* Test Item Value Reference Range Interpretation Comments Mean Corpuscular Volume (test code = 787-2) 91.9 81-99 [facility]entonMean Corpuscular Xrbhywulql1019-95-51 05:18:00* Test Item Value Reference Range Interpretation Comments Mean Corpuscular Hemoglobin (test code = 785-6) 30.4 28-32 [facility] DentonMean Corpuscular Hemoglobin Concent 2018-08-30 05:18:00* Test Item Value Reference Range Interpretation Comments Mean Corpuscular Hemoglobin Concent (test code = 786-4) 33.1 31-35 [facility] DentonRed Cell Distribution Sfaxy8148-76-68 05:18:00* Test Item Value Reference Range Interpretation Comments Red Cell Distribution Width (test code = 34155-7) 13.1 11.7 -14.4 [facility] DentonPlatelet Tolnn3360-98-22 05:18:00* Test Item Value Reference Range Interpretation Comments Platelet Count (test code = 777-3) 272 140-360 [facility] DentonNeutrophils (%) (Auto)2018-08-30 05:18:00 * Test Item Value Reference Range Interpretation Comments Neutrophils (%) (Auto) (test code = 81632-8) 58.7 38.7-80.0 [facility] DentonLymphocytes (%) (Auto)2018-08-30 05:18:00 * Test Item Value Reference Range Interpretation Comments Lymphocytes (%) (Auto) (test code = 736-9) 33.2 18.0-39.1 [facility]entonMonocytes (%) (Auto)2018-08-30 05:18:00* Test Item Value Reference Range Interpretation Comments Monocytes (%) (Auto) (test code = 5905-5) 5.1 4.4-11.3 [facility]entonEosinophils (%) (Auto)2018-08-30 05:18:00 * Test Item Value Reference Range Interpretation Comments Eosinophils (%) (Auto) (test code = 713-8) 1.8 0.0-6.0 [facility]entonBasophils (%) (Auto)2018-08-30 05:18:00* Test Item Value Reference Range Interpretation Comments Basophils (%) (Auto) (test code = 706-2) 0.5 0.0-1.0 [facility] DentonIM GRANULOCYTES %2018-08-30 05:18:00* Test Item Value Reference Range Interpretation Comments IM GRANULOCYTES % (test code = IM GRANULOCYTES %) 0.7 0.0- 1.0 [facility]entonNeutrophils # (Auto)2018-08-30 05:18:00* Test Item Value Reference Range Interpretation Comments Neutrophils # (Auto) (test code = 751-8) 5.7 2.1-6.9 [facility] DentonLymphocytes # (Auto)2018-08-30 05:18:00* Test Item Value Reference Range Interpretation Comments Lymphocytes # (Auto) (test code = 24508-6) 3.2 1.0-3.2 [facility] DentonMonocytes # (Auto)2018-08-30 05:18:00* Test Item Value Reference Range Interpretation Comments Monocytes # (Auto) (test code = 742-7) 0.5 0.2-0.8 [facility]entonEosinophils # (Auto)2018-08-30 05:18:00* Test Item Value Reference Range Interpretation Comments Eosinophils # (Auto) (test code = 711-2) 0.2 0.0-0.4 [facility]entonBasophils # (Auto)2018-08-30 05:18:00* Test Item Value Reference Range Interpretation Comments Basophils # (Auto) (test code = 704-7) 0.1 0.0-0.1 [facility] DentonAbsolute Immature Granulocyte (auto 2018-08-30 05:18:00* Test Item Value Reference Range Interpretation Comments Absolute Immature Granulocyte (auto (denise t code = Absolute Immature Granulocyte (auto) 0.07 0-0.1 [facility] DentonFree Juqxstknf9224-94-16 14:08:00* Test Item Value Reference Range Interpretation Comments Free Thyroxine (test code = 3024-7) 0.63 0.9-1.8 L [facility] DentonHemoglobin A1c Basyqeq9008-81-23 13:47:00 * Test Item Value Reference Range Interpretation Comments Hemoglobin A1c Percent (test code = Hemoglobin A1c Percent) 9.8 4.0-7.0 H [facility] DentonRandom Vancomycin Bvqam0643-73-87 08:44:00* Test Item Value Reference Range Interpretation Comments Random Vancomycin Level (test code = 35732-6) 3.4 [facility] DentonUrine NHS1415-83-36 14:36:00* Test Item Value Reference Range Interpretation Comments Urine WBC (test code = 5821-4) 11-20 0-5 H [facility] DentonUrine GKX3487-86-00 14:36:00* Test Item Value Reference Range Interpretation Comments Urine RBC (test code = 71264-0) 0-5 0-5 [facility] DentonUrine Giwiadyh9510-83-43 14:36:00* Test Item Value Reference Range Interpretation Comments Urine Bacteria (test code = 89153-6) FEW NONE [facility] [facility]helial [id number] 14:36:00 * Test Item Value Reference Range Interpretation Comments Urine Epithelial Cells (test code = 98697-6) MODERATE NONE [facility] Renal Epithelial [id number] 14:36:00* Test Item Value Reference Range Interpretation Comments Urine Renal Epithelial Cells (test code = 50774-7) FEW NON E H [facility] [id number] 14:36:00* Test Item Value Reference Range Interpretation Comments Urine Mucus (test code = 8247-9) FEW RARE H [facility] [id number] 14:28:00* Test Item Value Reference Range Interpretation Comments Urine Color (test code = 5778-6) YELLOW YELLOW [facility] [id number] 14:28:00* Test Item Value Reference Range Interpretation Comments Urine Clarity (test code = 69182-2) CLEAR CLEAR [facility] Specific [id number] 14:28:00 * Test Item Value Reference Range Interpretation Comments Urine Specific [place] (test code = 5811-5) 1.015 1.010-1.02 5 [facility] [id number] 14:28:00* Test Item Value Reference Range Interpretation Comments Urine pH (test code = 74214-5) 6.5 5-7 [facility] Leukocyte [id number] 14:28:00* Test Item Value Reference Range Interpretation Comments Urine Leukocyte Esterase (test code = 5799-2) 1+ NEGATIVE H [facility] [id number] 14:28:00* Test Item Value Reference Range Interpretation Comments Urine Nitrite (test code = 99816-0) NEGATIVE NEGATIVE [facility] [id number] 14:28:00* Test Item Value Reference Range Interpretation Comments Urine Protein (test code = 5804-0) NEGATIVE NEGATIVE [facility] Glucose (UA)2018-08-27 14:28:00* Test Item Value Reference Range Interpretation Comments Urine Glucose (UA) (test code = 2349-9) 3+ NEGATIVE H [facility] [id number] 14:28:00* Test Item Value Reference Range Interpretation Comments Urine Ketones (test code = 35241-9) NEGATIVE NEGATIVE [facility] [id number] 14:28:00* Test Item Value Reference Range Interpretation Comments Urine Urobilinogen (test code = 57265-1) 0.2 0.2-1 [facility] [id number] 14:28:00* Test Item Value Reference Range Interpretation Comments Urine Bilirubin (test code = 1978-6) NEGATIVE NEGATIVE [facility] [id number] 14:28:00* Test Item Value Reference Range Interpretation Comments Urine Blood (test code = 50765-9) NEGATIVE NEGATIVE [facility] [id number] 12:55:00* Test Item Value Reference Range Interpretation Comments Magnesium Level (test code = 21954-1) 1.8 1.3-2.1 [facility] [id number] 12:55:00* Test Item Value Reference Range Interpretation Comments Total Bilirubin (test code = 1975-2) 0.4 0.2-1.2 [facility]enton[facility] Amino Transf (AST/SGOT) 2018-08-27 12:55:00* Test Item Value Reference Range Interpretation Comments Aspartate Amino Transf (AST/SGOT) (test code = Aspartate Amino Transf (AST/SGOT)) 21 5-34 [facility]anine Aminotransferase (ALT/SGPT) 2018-08-27 12:55:00* Test Item Value Reference Range Interpretation Comments Alanine Aminotransferase (ALT/SGPT) (test code = 1742-6) 11 0-55 [facility] [id number] 12:55:00* Test Item Value Reference Range Interpretation Comments Total Protein (test code = 2885-2) 6.8 6.5-8.1 [facility]enton[facility]in2018-11-19 12:55:00* Test Item Value Reference Range Interpretation Comments Albumin (test code = 1751-7) 3.2 3.5-5.0 L [facility]entonGlobulin2018-11-19 12:55:00* Test Item Value Reference Range Interpretation Comments Globulin (test code = 33663-7) 3.6 2.3-3.5 H [facility]enton[facility]in/Globulin [id number] 12:55:00 * Test Item Value Reference Range Interpretation Comments Albumin/Globulin Ratio (test code = 1759-0) 0.9 0.8-2.0 [facility]enton[facility]kaline [id number] 12:55:00* Test Item Value Reference Range Interpretation Comments Alkaline Phosphatase (test code = 6768-6) 109 40-150 [facility]entonLactic Acid [id number] 12:48:00* Test Item Value Reference Range Interpretation Comments Lactic Acid Level (test code = Lactic Acid Level) 10.6 4.5- 19.8 [facility]
[2020-05-14] MEDS: AZITHROMYCIN 250 MG TAB PO SCH ×2 (19:02→19:07)
--- NOTE | 2020-05-14 19:05 | NUR ---
continuation of care, report received from Nima ALLRED
[2020-05-14] MEDS ORDERED: HYDRALAZINE HCL 20 MG/ML VIAL IV PRN (20:15)
[2020-05-14] MEDS ORDERED: ONDANSETRON HCL INJ 2MG/ML 2ML 2 MG/ML VIAL IV PRN (20:15)
[2020-05-14] MEDS ORDERED: ACETAMINOPHEN/CODEINE 300MG - 30MG TAB PO PRN (20:15)
[2020-05-14] MEDS ORDERED: DEXTROSE 50% SYRINGE 50 ML IV PRN (20:15)
[2020-05-14] MEDS ORDERED: ACETAMINOPHEN 325 MG TAB PO PRN (20:15)
[2020-05-14 20:30] VITALS: BP 170/88
[2020-05-14 21:00] VITALS: BP 170/88
[2020-05-14] MEDS: INSULIN LISPRO 100 UNIT/1 ML 3ML VIAL SQ SCH (21:00)
--- NOTE | 2020-05-14 21:00 | NUR ---
Patient received via stretcher from ER. AAO x 4. Patient had no complaints of pain. Respirations even and non-labored. Admission history obtained. Initial physical assessment performed. Patient oriented to call light , visiting policy and plan of care. Safety measures in place. Patient instructed to call for assistance when needed. Call light within reach.
[2020-05-14] MEDS: SIMVASTATIN 40 MG TAB PO SCH (21:45)
[2020-05-15] VITALS (7 sets, daily range): BP systolic 132–150; BP diastolic 70–82
[2020-05-15] MEDS ORDERED: METOPROLOL TARTRATE INJ 1 MG/ML VIAL IV PRN (00:15)
[2020-05-15] MEDS ORDERED: POLYETHYLENE GLYCOL 3350 17 GM PACK PO PRN (00:15)
[2020-05-15] MEDS ORDERED: TEMAZEPAM 15 MG CAP PO PRN (00:30)
--- NOTE | 2020-05-15 00:30 | NUR ---
Blood specimen sent to lab for analysis of cardiac markers.
[2020-05-15 00:36] LABS: CREATINE KINASE MB 3.7 ng/mL (0-5.0)
[2020-05-15 04:09] LABS: CLARITY,URINE SL CLOUDY (CLEAR); COLOR,URINE YELLOW (YELLOW); LEUKOCYTE ESTERASE ,URINE SMALL (NEGATIVE); NITRITE,URINE NEGATIVE (NEGATIVE); PROTEIN,URINE DIPSTICK NEGATIVE (NEGATIVE)
[2020-05-15 04:10] LABS: BILIRUBIN,URINE NEGATIVE (NEGATIVE); KETONES,URINE NEGATIVE (NEGATIVE); URINE UROBILINOGEN 0.2 mg/dL (0.2 - 1)
--- NOTE | 2020-05-15 04:13 | NUR ---
Urine specimen sent to lab for analysis.
[2020-05-15 04:16] LABS: BACTERIA,URINE FEW /HPF; EPITHELIAL CELLS,URINE MODERATE /LPF; WBC,URINE (MAN) 21-50 /HPF (0-5)
[2020-05-15 05:15] LABS: BASOPHILS # (AUTO) 0.1 (0.0-0.1); BASOPHILS % 0.5 % (0.0-1.0); EOSINOPHILS # (AUTO) 0.2 (0.0-0.4); EOSINOPHILS % 1.4 % (0.0-6.0); HEMATOCRIT 43.5 % (34.2-44.1); HEMOGLOBIN 13.8 g/dL (12.0-16.0); LYMPHOCYTES # (AUTO) 3.9 (1.0-3.2); LYMPHOCYTES % 32.7 % (18.0-39.1); MEAN CORPUSCULAR HEMOGLOBIN 28.6 pg (28-32); MEAN CORPUSCULAR HGB CONC 31.7 g/dL (31-35); MEAN CORPUSCULAR VOLUME 90.2 fL (81-99); MONOCYTES # (AUTO) 0.8 (0.2-0.8); MONOCYTES % 6.4 % (4.4-11.3); NEUTROPHILS # (AUTO) 6.9 (2.1-6.9); NEUTROPHILS % 58.2 % (38.7-80.0); PLATELET COUNT 248 x10e3/uL (140-360); RED BLOOD COUNT 4.82 x10e6/uL (3.6-5.1); RED CELL DISTRIBUTION WIDTH 13.1 % (11.7-14.4)
[2020-05-15 05:34] LABS: ANION GAP 9.3 mmol/L (8-16); CALCIUM 8.9 mg/dL (8.4-10.2); CREATININE, SERUM 1.12 mg/dL (0.57-1.11); POTASSIUM 4.3 mmol/L (3.5-5.1)
[2020-05-15] MEDS ORDERED: LEVOTHYROXINE SODIUM 100 MCG TAB PO SCH (06:00)
[2020-05-15 06:26] LABS: CHOL/HDL RATIO 5.2 (3.0-3.6); MAGNESIUM 1.6 MG/DL (1.3-2.1); PHOSPHORUS 3.6 MG/DL (2.3-4.7)
[2020-05-15 06:46] LABS: THYROID STIMULATING HORMONE 2.384 uIU/mL (0.350-4.940)
[2020-05-15] MEDS: PANTOPRAZOLE SOD 40 MG TABEC PO SCH ×2 (06:50→09:00)
--- NOTE | 2020-05-15 06:53 | NUR ---
Dr. Carpenter notified of "Routine Consult". Reason: AECOPD.
--- NOTE | 2020-05-15 06:57 | NUR ---
Shift report given to oncoming nurse.
[2020-05-15] MEDS ORDERED: MAGNESIUM SULFATE 2GM/50ML 50 ML IV ONE (07:45)
[2020-05-15] MEDS ORDERED: FENOFIBRATE 145 MG TAB PO SCH (09:00)
[2020-05-15] MEDS ORDERED: CITALOPRAM HYDROBROMIDE 20 MG TAB PO SCH (09:00)
[2020-05-15] MEDS ORDERED: DULOXETINE HCL 30 MG DELAYED RELEASE PO SCH (09:00)
[2020-05-15] MEDS ORDERED: ASPIRIN 81 MG CHEW TAB PO SCH (09:00)
[2020-05-15] MEDS ORDERED: TOPIRAMATE 100 MG TAB PO SCH (09:00)
[2020-05-15] MEDS: DOCUSATE SODIUM 100 MG CAP PO SCH ×2 (09:05→17:00)
[2020-05-15] MEDS: GABAPENTIN 300 MG CAP PO SCH ×2 (09:06→17:22)
[2020-05-15] MEDS: INSULIN GLARGINE 100 UNITS/ML VIAL SQ SCH ×2 (09:23→17:23)
[2020-05-15] MEDS: INSULIN LISPRO 100 UNIT/1 ML 3ML VIAL SQ SCH ×3 (09:27→17:22)
[2020-05-15] MEDS ORDERED: SODIUM CHLORIDE 0.45% 1,000 ML IV ONE (11:45)
[2020-05-15] MEDS ORDERED: METHYLPREDNISOLONE SOD SUCC 40 MG/ML VIAL 1ML IV ONE (12:00)
[2020-05-15 13:02] LABS: CREATINE KINASE MB 2.5 ng/mL (0-5.0)
--- NOTE | 2020-05-15 14:54 | Consultation ---
DATE OF CONSULTATION: Pulmonary Critical Care Consultation CHIEF COMPLAINT: Dyspnea and cough. HISTORY OF PRESENT ILLNESS: The patient is a 59-year-old woman. She has a history of asthma and mild COPD. She uses a rescue inhaler at home as well as nebulizer. Over the past 2-3 weeks, she has noticed increased coughing and wheezing. She has some increased dyspnea. She denies fever. She has some discomfort in the chest anteriorly when she takes a deep breath. PAST SURGICAL HISTORY: 1. Status post carpal tunnel surgery. 2. Status post ankle surgery. 3. Status post CLAIMS EXAMINER surgery. PAST MEDICAL HISTORY: 1. Asthma and COPD as noted above. 2. Diabetes. 3. No prior heart disease. ALLERGIES: THE PATIENT IS ALLERGIC TO SULFA AND . FAMILY HISTORY: Noncontributory. SOCIAL HISTORY: The patient quit smoking several years ago. She is not an active drinker. REVIEW OF SYSTEMS: She denies fevers. She has no headache. She has no neck pain. She is complaining of some chest discomfort with inspiration. She has cough and dyspnea. She has no abdominal pain. She has no nausea or vomiting. She has no leg edema. PHYSICAL EXAMINATION: VITAL SIGNS: Blood pressure is 139/77, saturation is 99% on room air, and the pulse is 93. Respiratory rate is 28. HEENT: No facial swelling or erythema. Oropharynx is normal. LYMPHATIC: No submandibular, cervical, or supraclavicular adenopathy. CARDIAC: Regular rate and rhythm with normal S1, S2. LUNGS: Auscultation of lungs reveals rhonchorous breath sounds bilaterally. There is no wheezing. ABDOMEN: Soft, nontender. There is no rebound or guarding. EXTREMITIES: No leg edema or calf tenderness. There is no cyanosis or clubbing. SKIN: No rashes. NEUROLOGICAL: No focal abnormalities. LABORATORY DATA: White blood cell count is 11.8, hemoglobin is 13.8, and the platelet count is 248. BUN to creatinine ratio is 17 to 1.12. Other electrolytes are within normal limits. Hemoglobin A1c is 8.8. RADIOGRAPHIC DATA: Chest x-ray shows no active disease. IMPRESSION: 1. Chronic obstructive pulmonary disease with acute exacerbation. 2. Acute kidney injury. 3. Diabetes. PLAN: 1. Low-dose Solu-Medrol x1 dose. 2. Continue bronchodilators. 3. Await COVID-19 testing. 4. Judicious use of IV fluids. 5. Continue to monitor and control blood sugars. MD ANTIONETTE Polanco/MODL /[id number]
--- NOTE | 2020-05-15 19:31 | Consultation ---
DATE OF CONSULTATION: HISTORY OF PRESENT ILLNESS: Ms. Sharif is a very pleasant 59-year-old female, history of mild asthma, mild COPD, on inhalers. The patient comes in with coughing and wheezing for the last 2 weeks at least the patient started to have some cough, which was productive for the last couple of days, so came here. PAST MEDICAL HISTORY: COPD, asthma, diabetes mellitus. PAST SURGICAL HISTORY: Carpal tunnel surgery, ankle surgery. ALLERGIES: SULFA. SOCIAL HISTORY: Does not smoke, drug abuse or alcohol abuse. FAMILY HISTORY: Noncontributory. LABORATORY DATA: White count when she first came was 13.25, hemoglobin 14. Her sodium 141, potassium 4.3, creatinine 1.12, glucose 180. PHYSICAL EXAMINATION: GENERAL: She is currently alert, oriented. VITAL SIGNS: Afebrile. HEENT: She is not icteric. NECK: Supple. CHEST: Crackles bilateral. HEART: S1, S2. ABDOMEN: Soft. Bowel sounds present. EXTREMITIES: No edema. SKIN: No rash. . IMPRESSION: Bacterial pneumonia, community acquired pneumonia superimposing viral pneumonia and COVID-19. The patient has been sick for more than 2 weeks. We will put on Rocephin 5 days, azithromycin three days diabetic control. I do not think she would need steroid from COVID point of view, however, actually from her asthma point of view, we will defer to Pulmonary. We will follow up. MD NORA Souza/FELIBERTO /[id number]
[2020-05-15] MEDS ORDERED: AZITHROMYCIN250 MG PO (20:51)
[2020-05-15] MEDS: SIMVASTATIN 40 MG TAB PO SCH (21:43)
--- NOTE | 2020-05-15 22:00 | NUR ---
Patient given discharge instructions and prescription. Patient verbalized understanding. IV and telemetry box removed. Patient transported to private auto by W/C. Patient in stable condition. Vital signs WNL.
--- NOTE | 2020-05-15 23:31 | History and Physical ---
History and Physical, Short Stay, and Discharge Summary CONSULTING PHYSICIANS: 1. Dr. Michael with Infectious Disease. 2. Dr. Carpenter with Pulmonology. CHIEF COMPLAINT: Signs and symptoms of URI, sick for 2 weeks without improvement. HISTORY OF PRESENT ILLNESS: The patient is a 59-year-old female with reports of cough and malaise on emergency room documentation and currently seeing in the [facility] intermediate care unit in bed 175. The patient reports that she has been sick for 2 weeks off and on. Has used nebs, inhalers, two rounds of antibiotics, specifically Z-Deep and Ceftin, prednisone for 15 days plus nebulizer, Pulmicort, ipratropium nebs four times a day and she states that she feels like she is "swollen in her chest." She states "I have had these attacks for years, but never had one this bad before." Per documentation on the emergency room note from emergency room physician, Dr. Elsi Hernandez DO. The note reads as follows: The patient informed she is positive until proven otherwise. The patient's oxygen saturation remained 99% even on exertion, no evidence of tachypnea or dyspnea noted in the ED. The patient received a chest x-ray and COVID-19 swab. The patient did not meet criteria for hospital admission and this was discussed. The patient is not having any signs or symptoms of respiratory distress and not requiring supplemental oxygen. The patient was discharged on Decadron and Z-Deep. The patient has a strong support system as an outpatient and discharge home with joint clinical decision making. The patient understands she is at high risk of morbidity and mortality given her age and comorbidities. The patient understands she is welcome to return to the emergency department at any time for worsening symptoms. PAST MEDICAL HISTORY: Diabetes mellitus, COPD, hypothyroidism, neuropathy, essential tremors, obesity, hyperlipidemia in 2018, showed abscess in the groin 2017. She had a suprapubic abscess. PAST SURGICAL HISTORY: Appendectomy, bilateral tubal ligation, surgery bilateral hands and feet, vagus nerve stimulator implanted in 2018, and drainage of abscess in the groin, carpal tunnel surgery, ankle surgery for ankle fractures, reports several other abscesses drained. FAMILY HISTORY: Mother had brain cancer. Father had emphysema. SOCIAL HISTORY: The patient states she smoked a pack a day for 35 years. She denies any use of alcohol or illicit drugs. She is to work in a restaurant. ALLERGIES: SULFA GAVE HER RASH. CEFOTAXIME/CLAFORAN CAUSED ANAPHYLAXIS. REVIEW OF SYSTEMS: A 14-point review of systems was completed. The patient states that she is not having any phlegm, but she does have a cough and when she coughs really hard. She feels tingling in her legs. Last bowel movement 05/15/2020. The patient states she was breathing fine without oxygen before. PHYSICAL EXAMINATION: VITAL SIGNS: Temperature 97.0, heart rate 101, blood pressure 141/82, respirations 20, oxygen saturation 98%. Height 5 feet 7 inches, weight 248 pounds, BMI 38.83. GENERAL: Supine in bed, no acute distress. LUNGS: Generally clear. Diminished bases. The patient is currently on 2 L of oxygen via nasal cannula. HEENT: EOMI. NECK: Supple. No JVD. CARDIOVASCULAR: Regular rate and rhythm without murmur, half normal saline infusing at 100 mL an hour. ABDOMEN: Bowel sounds positive. Soft, nontender, obese. EXTREMITIES: With no pitting edema. No clubbing, cyanosis, or marked swelling or signs of DVT. NEUROLOGICAL: GCS 15. Nonfocal. LABORATORY DATA: WBCs 11.79, which is down from 13.25, hemoglobin 13.8, hematocrit 43.5, platelets 248. Fingerstick blood glucose levels today 142, 147. Hemoglobin A1c 8.8%, phosphorus 3.6, magnesium 1.6. Creatine kinase 141, CK-MB 2.5, troponin I 0.008. Triglycerides 261, cholesterol 222, LDL 127, HDL 43, TSH 2.384. Urinalysis showed slightly cloudy urine, 2+ glucose, small amount of leukocyte esterase, few bacteria, negative nitrite, coronavirus PCR was negative. According to laboratory staff members, chest x-ray done in 05/14 showed no acute cardiopulmonary abnormalities. ASSESSMENT AND PLAN: 1. Chronic obstructive pulmonary disease without acute exacerbation. 2. Uncontrolled type 2 diabetes mellitus with hyperglycemia. 3. Hypothyroidism. 4. Obesity with BMI 38.83. 5. Acute hypomagnesemia. 6. Chronic kidney disease stage 2. List on emergency department documentation, not sure why patient was admitted into the coronavirus intermediate care unit unless it just to rule out COVID-19. Coronavirus test was negative. We will send patient home on her home medications along with Z-Deep. The patient to follow up with Dr. 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 Follow up with PCP in 1-2 weeks. Continue cardiac diet. Activity level as tolerated. Hemoglobin A1c 8.8%. Monitor fingerstick blood glucose level at home. Follow up with PCP. Continue home thyroid medication, 2 g magnesium sulfate given for low magnesium level 1.6 today. Creatinine 1.12 (1.23), estimated GFR 50 (45). The patient is at baseline. Oxygen saturation ranged from 95% to 100% today. Discharged the patient home without oxygen. Chest x-ray was negative. Dictated by Talha Cabrera NP MD MARYAN MillerP/FELIBERTO /[id number]
== END 2020-05-15 22:00 | disposition home or self-care (01) ==
LOC: ER 16:00 → ERHOLD 18:24 → IMCU 21:02
PROVIDERS: ADMIT Internal Medicine; ATTEND Internal Medicine
DX: J44.9 Chronic obstructive pulmonary disease, unspecified (principal); E03.9 Hypothyroidism, unspecified; E11.42 Type 2 diabetes mellitus with diabetic polyneuropathy; N17.9 Acute kidney failure, unspecified; N18.2 Chronic kidney disease, stage 2 (mild); E11.65 Type 2 diabetes mellitus with hyperglycemia; E66.9 Obesity, unspecified; Z68.38 Body mass index [BMI] 38.0-38.9, adult; E83.42 Hypomagnesemia; E11.22 Type 2 diabetes mellitus with diabetic chronic kidney disease; Z88.2 Allergy status to sulfonamides; Z11.59 Encounter for screening for other viral diseases; Z87.891 Personal history of nicotine dependence; Z88.8 Allergy status to other drugs, medicaments and biological substances; Z80.8 Family history of malignant neoplasm of other organs or systems; Z83.6 Family history of other diseases of the respiratory system; Z79.82 Long term (current) use of aspirin; Z79.4 Long term (current) use of insulin
CPT/HCPCS: 36415 ×2; 71045; 80048; 80053; 80061; 81001; 82550 ×2; 82553 ×2; 82948; 83036; 83735; 83880; 84100; 84443; 84484 ×2; 85025 ×2; 85610; 85730; 99284; G0378 ×2; J0360; J1815; J2920; J3475; S0164; U0002

== ENCOUNTER 2020-11-03 18:28 | Emergency (ER) | payer MEDICARE ==
[~2020-11-03] VITALS: Ht 170.2 cm; Wt 112.5 kg
[~2020-11-03 18:28] MED LIST changes: +AZITHROMYCIN250 MG PO; +PREDNISONE20 MG PO; +PROAIR HFA INH8.5 GM INH
[2020-11-03] MEDS ORDERED: LACTATED RINGER'S 1,000 ML INJ ONE (19:15)
[2020-11-03 19:30] LABS: BASOPHILS # (AUTO) 0.1 (0.0-0.1); BASOPHILS % 0.6 % (0.0-1.0); EOSINOPHILS # (AUTO) 0.2 (0.0-0.4); EOSINOPHILS % 1.8 % (0.0-6.0); HEMOGLOBIN 13.8 g/dL (12.0-16.0); LYMPHOCYTES # (AUTO) 3.2 (1.0-3.2); LYMPHOCYTES % 34.6 % (18.0-39.1); MEAN CORPUSCULAR HEMOGLOBIN 29.9 pg (28-32); MEAN CORPUSCULAR HGB CONC 32.9 g/dL (31-35); MEAN CORPUSCULAR VOLUME 91.1 fL (81-99); MONOCYTES # (AUTO) 0.6 (0.2-0.8); MONOCYTES % 6.1 % (4.4-11.3); NEUTROPHILS # (AUTO) 5.2 (2.1-6.9); NEUTROPHILS % 56.5 % (38.7-80.0); PLATELET COUNT 212 x10e3/uL (140-360); RED BLOOD COUNT 4.61 x10e6/uL (3.6-5.1); RED CELL DISTRIBUTION WIDTH 13.2 % (11.7-14.4)
[2020-11-03 19:48] LABS: ALBUMIN 3.5 g/dL (3.5-5.0); ALBUMIN/GLOBULIN RATIO 1.1 (0.8-2.0); ANION GAP 18.5 mmol/L (8-16); CREATININE, SERUM 1.25 mg/dL (0.57-1.11); POTASSIUM 3.5 mmol/L (3.5-5.1)
== END 2020-11-03 21:45 | disposition home or self-care (01) ==
LOC: ER 19:09
DX: J40 Bronchitis, not specified as acute or chronic (principal); R05 Cough; E10.40 Type 1 diabetes mellitus with diabetic neuropathy, unspecified; Z11.52 Encounter for screening for COVID-19; J44.9 Chronic obstructive pulmonary disease, unspecified; E78.5 Hyperlipidemia, unspecified; F41.9 Anxiety disorder, unspecified; E03.9 Hypothyroidism, unspecified
CPT/HCPCS: 36415; 71045; 80053; 83880; 84484; 85025; 93005; 99284; J7121; U0002

== ENCOUNTER 2024-05-14 18:59 | Emergency (ER) | payer MEDICARE, OTHER ==
[~2024-05-14] VITALS: Ht 167.6 cm; Wt 99.8 kg
[~2024-05-14 18:59] MED LIST changes: +LEVOFLOXACIN250 MG PO; +LEVOTHYROXINE125 MCG PO; +ONDANSETRON ODT4 MG PO
[2024-05-14 19:20] VITALS: TEMP 98.8
[2024-05-14 19:47] LABS: BASOPHILS # (AUTO) 0.1 (0.0-0.1); BASOPHILS % 0.4 % (0.0-1.0); EOSINOPHILS # (AUTO) 0.2 (0.0-0.4); EOSINOPHILS % 1.4 % (0.0-6.0); HEMATOCRIT 39.2 % (34.2-44.1); HEMOGLOBIN 12.3 g/dL (12.0-16.0); LYMPHOCYTES # (AUTO) 2.5 (1.0-3.2); MEAN CORPUSCULAR HEMOGLOBIN 27.9 pg (28-32); MEAN CORPUSCULAR HGB CONC 31.4 g/dL (31-35); MEAN CORPUSCULAR VOLUME 88.9 fL (81-99); MONOCYTES % 8.6 % (4.4-11.3); NEUTROPHILS # (AUTO) 7.7 (2.1-6.9); NEUTROPHILS % 67.3 % (38.7-80.0); PLATELET COUNT 195 x10e3/uL (140-360); RED BLOOD COUNT 4.41 x10e6/uL (3.6-5.1); RED CELL DISTRIBUTION WIDTH 14.8 % (11.7-14.4); WHITE BLOOD COUNT 11.44 x10e3/uL (4.8-10.8)
[2024-05-14 20:02] LABS: ALBUMIN 3.5 g/dL (3.5-5.0); ANION GAP 13.4 mmol/L (8-16); BILIRUBIN,TOTAL 0.5 mg/dL (0.2-1.2); CALCIUM 9.6 mg/dL (8.4-10.2); CREATININE, SERUM 1.4 mg/dL (0.57-1.11); POTASSIUM 4.4 mmol/L (3.5-5.1); TOTAL PROTEIN 6.9 g/dL (6.5-8.1)
[2024-05-14] MEDS: SODIUM CHLORIDE 0.9% 1000ML 1,000 ML IV STA (20:13)
[2024-05-14] MEDS: ACETAMINOPHEN 325 MG TAB PO STA (20:15)
[2024-05-14 20:53] VITALS: PULSE 96; RESP 18
[2024-05-14] MEDS ORDERED: ONDANSETRON ODT4 MG PO (21:47)
[2024-05-14] MEDS ORDERED: AMOX TR-K CLV1 EAC2 PO (21:47)
[2024-05-14] MEDS ORDERED: ULTRAM 50MG50 MG PO (21:47)
[2024-05-14 23:06] VITALS: BP 136/76; PULSE 96; RESP 18; O2SAT 96
== END 2024-05-14 23:02 | disposition home or self-care (01) ==
LOC: ER 19:08
DX: M79.632 Pain in left forearm (principal); L03.114 Cellulitis of left upper limb; E11.9 Type 2 diabetes mellitus without complications; J44.9 Chronic obstructive pulmonary disease, unspecified; N28.9 Disorder of kidney and ureter, unspecified; E78.00 Pure hypercholesterolemia, unspecified; J45.909 Unspecified asthma, uncomplicated
CPT/HCPCS: 36415; 80053; 83605; 85025; 87040; 99283; J2543; J7030

== ENCOUNTER 2025-01-26 13:55 | Emergency (ER) | payer MEDICARE ==
[~2025-01-26] VITALS: Ht 167.6 cm; Wt 99.8 kg
[~2025-01-26 13:55] MED LIST changes: +AMOX TR-K CLV1 EAC2 PO; +ULTRAM 50MG50 MG PO
[2025-01-26 14:19] VITALS: PULSE 99; RESP 17; TEMP 99; O2SAT 100
[2025-01-26] MEDS ORDERED: LIDOCAINE HCL 1% LOCAL INJ 20 ML VIAL ONE (14:44)
[2025-01-26] MEDS ORDERED: HYDROCODONE/APAP 5MG-325MG TAB PO ONE (14:45)
[2025-01-26] MEDS ORDERED: LIDOCAINE HCL 1% LOCAL INJ 20 ML VIAL INJ ONE (15:30)
[2025-01-26] MEDS ORDERED: CLINDAMYCIN HC150 MG PO (17:55)
== END 2025-01-26 18:22 | disposition home or self-care (01) ==
LOC: ER 14:00
DX: L02.411 Cutaneous abscess of right axilla (principal); E10.22 Type 1 diabetes mellitus with diabetic chronic kidney disease; E10.40 Type 1 diabetes mellitus with diabetic neuropathy, unspecified; J44.9 Chronic obstructive pulmonary disease, unspecified; J45.909 Unspecified asthma, uncomplicated; E78.00 Pure hypercholesterolemia, unspecified
CPT/HCPCS: 10061; 99283; J2003